=== PATIENT | female | born 1945 | race Caucasian/White ===

== ENCOUNTER 2017-01-28 02:53 | Emergency (ER) | payer MEDICARE, OTHER | END 2017-01-28 04:17 | disposition left against medical advice (07) | LOC: JP.ED 02:53 | DX: Z53.21 Procedure and treatment not carried out due to patient leaving prior to being seen by health care provider (principal) ==

== ENCOUNTER 2018-01-07 15:46 | Emergency (ER) | payer MEDICARE, OTHER ==
--- NOTE | 2018-01-07 16:40 | EDM.PDOC ---
ED HPI GENERAL MEDICAL PROBLEM - General Chief Complaint: Gastrointestinal Problem Stated Complaint: DIZZY Time Seen by Provider: 01/07/18 16:15 Source of Information: Reports: Patient History Limitations: Reports: No Limitations - History of Present Illness INITIAL COMMENTS - FREE TEXT/NARRATIVE: 72-year-old female who recently stopped several of her medications including 2 blood pressure medicines and her thyroid medicine presents today with lightheadedness, nausea, and mild headache. No fevers or chills, no trauma, no shortness of breath or chest pain. Onset: Unknown/Unsure Severity: Mild Associated Symptoms: Reports: Headaches, Malaise, Nausea/Vomiting, Other ( Lightheaded and dizzy). Denies: Confusion, Chest Pain, Cough, Fever/Chills, Shortness of Breath, Weakness - Related Data Allergies Allergy/AdvReac Type Severity Reaction Status Date / Time Penicillins Allergy Intermediate Mouth Sores Verified 01/07/18 16:06 Home Meds: Home Meds Lidocaine 5% [Lidoderm 5%] 1 patch TOP DAILY PRN 02/08/14 [History] NIFEdipine [Adalat cc] 30 mg PO BEDTIME 02/08/14 [History] buPROPion HCl [Wellbutrin Xl] 150 mg PO BEDTIME 03/21/14 [History] Levothyroxine [Synthroid] 88 mcg PO QAM 10/03/15 [History] ALPRAZolam [Xanax] 0.5 mg PO BEDTIME 10/08/15 [History] Albuterol Sulfate [Proair Respiclick] 2 puff INH Q4HR PRN 10/08/15 [History] Escitalopram [Lexapro] 20 mg PO QAM 10/08/15 [History] cloNIDine [Catapres] 0.1 mg PO BID PRN 10/08/15 [History] traZODone HCl [Trazodone HCl] 100 mg PO BEDTIME 10/08/15 [History] Nitroglycerin 1 tab PO ASDIRECTED PRN 10/24/15 [History] Linaclotide [Linzess] 290 mcg PO DAILY 12/15/16 [History] Past Medical History HEENT History: Reports: Cataract Cardiovascular History: Reports: Arrhythmia, Hypertension, [place], Other (See Below) Other Cardiovascular History: SVT Respiratory History: Reports: COPD, Other (See Below) Other Respiratory History: Usually only uses O2 at night 2LPM Gastrointestinal History: Reports: Cholelithiasis, Chronic Constipation, 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: Musculoskeletal History: Reports: Back Pain, Chronic, Fracture Other Musculoskeletal History: back pain Neurological History: Reports: Migraines Psychiatric History: Reports: Anxiety, Depression Endocrine/Metabolic History: Reports: Hypothyroidism Hematologic History: Reports: Anemia, B12 Deficiency, Blood Transfusion(s) - Infectious Disease History Infectious Disease History: Reports: Chicken Pox - Past Surgical History HEENT Surgical History: Reports: Cataract Surgery Cardiovascular Surgical History: Reports: Cardiac Ablation GI Surgical History: Reports: Cholecystectomy, Colonoscopy, EGD Female Surgical History: Reports: Breast Biopsy, Hysterectomy, Salpingo- Oophorectomy Endocrine Surgical History: Reports: Thyroidectomy Musculoskeletal Surgical History: Reports: Arthroscopic Knee, Shoulder Surgery Other Musculoskeletal Surgeries/Procedures:: neuroma removed Oncologic Surgical History: Reports: Biopsy of Breast Social & Family History - Tobacco Use Smoking Status *Q: Former Smoker Years of Tobacco use: 50 Packs/Tins Daily: 0.5 Used Tobacco, but Quit: Yes Month/Year Tobacco Last Used: 2 months Second Hand Smoke Exposure: No - Caffeine Use Caffeine Use: Reports: Soda Other Caffeine Use: Pepsi - Alcohol Use Days Per Week of Alcohol Use: 0 - Recreational Drug Use Recreational Drug Use: No Recreational Drug Type: Reports: Benzodiazepines ED ROS GENERAL - Review of Systems Review Of Systems: See Below Constitutional: Reports: Malaise, Weakness, Decreased Appetite. Denies: Fever, Chills HEENT: Reports: No Symptoms. Denies: Vision Change Respiratory: Denies: Shortness of Breath Cardiovascular: Denies: Chest Pain, Palpitations GI/Abdominal: Reports: Nausea. Denies: Abdominal Pain, Vomiting Musculoskeletal: Reports: Neck Pain Skin: Reports: No Symptoms Neurological: Reports: Dizziness, Headache. Denies: Confusion, Paresthesia Psychiatric: Reports: No Symptoms ED EXAM, GENERAL - Physical Exam Exam: See Below Exam Limited By: No Limitations General Appearance: Alert, No Apparent Distress Eye Exam: Bilateral Eye: Normal Inspection Head: Atraumatic Neck: Supple, Non-Tender Respiratory/Chest: No Respiratory Distress, Lungs Clear Cardiovascular: Regular Rate, Rhythm GI/Abdominal: Soft, Non-Tender Extremities: No: Pedal Edema Neurological: Alert, Oriented Psychiatric: Normal Affect, Normal Mood Skin Exam: Warm, Dry Course - Vital Signs Last Recorded V/S: Last Vital Signs Temp 97.6 F 01/07/18 16:13 Pulse 56 L 01/07/18 17:23 Resp 16 01/07/18 17:23 BP 179/79 H 01/07/18 17:23 Pulse Ox 94 L 01/07/18 17:23 - Orders/Labs/Meds Labs: Laboratory Tests 01/07/18 01/07/18 Range/Units 16:25 16:25 WBC 6.3 (4.5-11.0) K/uL RBC 3.72 (3.30-5.50) M/uL Hgb 10.3 L (12.0-15.0) g/dL Hct 32.1 L (36.0-48.0) % MCV 86 (80-98) fL MCH 28 (27-31) pg MCHC 32 (32-36) % Plt Count 161 (150-400) K/uL Neut % (Auto) 63 (36-66) % Lymph % (Auto) 29 (24-44) % [place] % (Auto) 7 H (2-6) % Eos % (Auto) 0 L (2-4) % Baso % (Auto) 1 (0-1) % Sodium 136 L (140-148) mmol/L Potassium 3.8 (3.6-5.2) mmol/L Chloride 99 L (100-108) mmol/L Carbon Dioxide 30 (21-32) mmol/L Anion Gap 10.8 (5.0-14.0) mmol/L BUN 9 (7-18) mg/dL Creatinine 1.1 H (0.6-1.0) mg/dL Est Cr Clr Drug Dosing 42.00 mL/min Estimated GFR (MDRD) 49 L (>60) Glucose 113 H (74-106) mg/dL Calcium 9.0 (8.5-10.1) mg/dL Total Bilirubin 0.4 (0.2-1.0) mg/dL AST 13 L (15-37) U/L ALT 15 (12-78) U/L Alkaline Phosphatase 92 (46-116) U/L Total Protein 6.9 (6.4-8.2) g/dL Albumin 3.9 (3.4-5.0) g/dL Globulin 3.0 (2.3-3.5) g/dL Albumin/Globulin Ratio 1.3 (1.2-2.2) TSH, Ultra Sensitive 0.329 L (0.358-3.740) uIU/mL - Re-Assessments/Exams Free Text/Narrative Re-Assessment/Exam: 01/07/18 16:40 CBC, CMP and TSH were obtained. 01/07/18 17:55 TSH was 0.032. CBC and CMP were reassuring. I had a discussion with her primary care provider, Dr. Rosa and he reviewed the recent medical visits and had no recommendations for medication changes other than starting BuSpar. I encouraged the patient to restart her Synthroid, nifedipine, and any other medications as directed and recheck with Dr. Rosa next week. Departure - Departure Time of Disposition: 18:26 Disposition: Home, Self-Care 01 Condition: Good Clinical Impression: Dizziness Hypertension Qualifiers: Hypertension type: essential hypertension Qualified Code(s): I10 - Essential ( primary) hypertension - Discharge Information Instructions: Dizziness, [id number] Referrals: Azam Rosa Sr, MD [Primary Care Provider] - Forms: ED Department Discharge Care Plan Goals: Restart your medications as prescribed, including your thyroid medicine and blood pressure medication. Recheck with Dr. Rosa next week, or return sooner if worsening such as vomiting, fever, shortness of breath or increased pain.
[2018-01-07 17:24] VITALS: BP 179/79
== END 2018-01-07 18:28 | disposition home or self-care (01) ==
LOC: JP.ED 15:46
DX: I10 Essential (primary) hypertension (principal); Z88.0 Allergy status to penicillin; Z79.899 Other long term (current) drug therapy; J44.9 Chronic obstructive pulmonary disease, unspecified; Z87.891 Personal history of nicotine dependence; F41.9 Anxiety disorder, unspecified; F32.9 Major depressive disorder, single episode, unspecified; E03.9 Hypothyroidism, unspecified; D64.9 Anemia, unspecified; I25.2 Old myocardial infarction
CPT/HCPCS: 36415; 80053; 84443; 85025; 99283; 99284

== ENCOUNTER 2018-01-14 19:25 | Emergency (ER) | payer MEDICARE, OTHER ==
[2018-01-14 19:42] VITALS: BP 155/70
--- NOTE | 2018-01-14 19:53 | EDM.PDOC ---
ED HPI GENERAL MEDICAL PROBLEM - General Chief Complaint: Bite:Animal, Insect Stated Complaint: CAT BITE LEFT FOREARM Time Seen by Provider: 01/14/18 19:40 Source of Information: Reports: Patient History Limitations: Reports: No Limitations - History of Present Illness INITIAL COMMENTS - FREE TEXT/NARRATIVE: 72-year-old female concerned about an injury to her left forearm. She was bitten by a cat yesterday that swollen, bruised and tender. She is already on Augmentin for a cat bite on her right arm. No fevers or chills Onset: Sudden (Yesterday) Location: Reports: Upper Extremity, Left Severity: Mild - Related Data Allergies Allergy/AdvReac Type Severity Reaction Status Date / Time Penicillins Allergy Intermediate Mouth Sores Verified 01/14/18 19:33 Home Meds: Home Meds Lidocaine 5% [Lidoderm 5%] 1 patch TOP DAILY PRN 02/08/14 [History] NIFEdipine [Adalat cc] 30 mg PO BEDTIME 02/08/14 [History] buPROPion HCl [Wellbutrin Xl] 150 mg PO BEDTIME 03/21/14 [History] Levothyroxine [Synthroid] 88 mcg PO QAM 10/03/15 [History] ALPRAZolam [Xanax] 0.5 mg PO BEDTIME 10/08/15 [History] Albuterol Sulfate [Proair Respiclick] 2 puff INH Q4HR PRN 10/08/15 [History] Escitalopram [Lexapro] 20 mg PO QAM 10/08/15 [History] cloNIDine [Catapres] 0.1 mg PO BID PRN 10/08/15 [History] traZODone HCl [Trazodone HCl] 100 mg PO BEDTIME 10/08/15 [History] Nitroglycerin 1 tab PO ASDIRECTED PRN 10/24/15 [History] Linaclotide [Linzess] 290 mcg PO DAILY 12/15/16 [History] Amoxicillin/Clavulanate K [Augmentin 875-125 MG] 1 tab PO BID 01/14/18 [History] Past Medical History HEENT History: Reports: Cataract Cardiovascular History: Reports: Arrhythmia, Hypertension, [place], Other (See Below) Other Cardiovascular History: SVT Respiratory History: Reports: COPD, Other (See Below) Other Respiratory History: Usually only uses O2 at night 2LPM Gastrointestinal History: Reports: Cholelithiasis, Chronic Constipation, 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: Musculoskeletal History: Reports: Back Pain, Chronic, Fracture Other Musculoskeletal History: back pain Neurological History: Reports: Migraines Psychiatric History: Reports: Anxiety, Depression Endocrine/Metabolic History: Reports: Hypothyroidism Hematologic History: Reports: Anemia, B12 Deficiency, Blood Transfusion(s) - Infectious Disease History Infectious Disease History: Reports: Chicken Pox - Past Surgical History HEENT Surgical History: Reports: Cataract Surgery Cardiovascular Surgical History: Reports: Cardiac Ablation GI Surgical History: Reports: Cholecystectomy, Colonoscopy, EGD Female Surgical History: Reports: Breast Biopsy, Hysterectomy, Salpingo- Oophorectomy Endocrine Surgical History: Reports: Thyroidectomy Musculoskeletal Surgical History: Reports: Arthroscopic Knee, Shoulder Surgery Other Musculoskeletal Surgeries/Procedures:: neuroma removed Oncologic Surgical History: Reports: Biopsy of Breast Social & Family History - Tobacco Use Smoking Status *Q: Current Some Day Smoker Years of Tobacco use: 40 Packs/Tins Daily: 0.1 Used Tobacco, but Quit: Yes Month/Year Tobacco Last Used: 2 months Second Hand Smoke Exposure: No - Caffeine Use Caffeine Use: Reports: Soda Other Caffeine Use: Pepsi - Alcohol Use Days Per Week of Alcohol Use: 0 - Recreational Drug Use Recreational Drug Use: No Recreational Drug Type: Reports: Benzodiazepines ED ROS GENERAL - Review of Systems Review Of Systems: See Below Constitutional: Denies: Fever Respiratory: Denies: Shortness of Breath GI/Abdominal: Denies: Nausea, Vomiting Skin: Reports: Bruising ED EXAM, ANIMAL BITE - Physical Exam Exam: See Below Exam Limited By: No Limitations General Appearance: Alert, No Apparent Distress Respiratory/Chest: No Respiratory Distress Extremities: Other (Exam is otherwise limited to the extremities. She has a few dry puncture wounds on the right forearm that are healing nicely, on the left forearm there is a slightly raised bruised area with 3 small puncture wounds from her recent bite. No warmth or erythema. She has full range of motion of the fingers and hand although there is some discomfort with extension of the fingers.) Course - Vital Signs Last Recorded V/S: Last Vital Signs Temp 97.9 F 01/14/18 19:40 Pulse 81 01/14/18 19:40 Resp 14 01/14/18 19:40 BP 155/70 H 01/14/18 19:40 Pulse Ox 97 01/14/18 19:40 - Re-Assessments/Exams Free Text/Narrative Re-Assessment/Exam: 01/14/18 19:51 Explained to the patient that she likely has a hematoma under the skin which is causing discomfort. She is already on Augmentin, and anti-inflammatory can be added along with some moist warmth with compresses but no further antibiotic or treatment is needed. She can return if worsening. Departure - Departure Time of Disposition: 20:16 Disposition: Home, Self-Care 01 Condition: Good Clinical Impression: Contusion of arm, left Qualifiers: Encounter type: initial encounter Qualified Code(s): S40.022A - Contusion of left upper arm, initial encounter Cat bite of forearm Qualifiers: Encounter type: initial encounter Laterality: left Qualified Code(s): S51.852A - Open bite of left forearm, initial encounter - Discharge Information Instructions: Animal Bite, [id number] Referrals: PCP,None [Primary Care Provider] - Forms: ED Department Discharge Care Plan Goals: Continue with antibiotics as prescribed. Anti-inflammatories and warm compresses to the bruised area may help. Recheck at any time if worsening such as fever or increased erythema or warmth.
== END 2018-01-14 20:16 | disposition home or self-care (01) ==
LOC: JP.ED 19:25
DX: S51.852A Open bite of left forearm, initial encounter (principal); W55.01XA Bitten by cat, initial encounter
CPT/HCPCS: 99283

== ENCOUNTER 2018-03-28 12:21 | Emergency (ER) | payer MEDICARE, OTHER ==
[2018-03-28 12:45] VITALS: BP 138/59
--- NOTE | 2018-03-28 13:15 | EDM.PDOC ---
ED HPI GENERAL MEDICAL PROBLEM - General Chief Complaint: Chest Pain Stated Complaint: TIGHTNESS IN CHEST Time Seen by Provider: 03/28/18 13:05 Source of Information: Reports: Patient, EMS, Old Records History Limitations: Reports: No Limitations - History of Present Illness INITIAL COMMENTS - FREE TEXT/NARRATIVE: 72 yo female with no known CAD presents with upper abdominal pain that developed abruptly about 11:45 am today while walking. EMS transported with a normal EKG and vitals. ASA was given per EMS. Patient is almost fully resolved of this pain on arrival. Had a cath a few yrs ago that was per her report normal. Had eaten some pound cake and Pepsi before sx's began. Says that with the pain she had nausea, SOB, and diaphoresis-all are gone now. Onset: Today Onset Date: 03/28/18 Onset Time: 11:45 Duration: Minutes:, Resolved Prior to Arrival Location: Reports: Abdomen (upper) Quality: Reports: Pressure Severity: Severe Improves with: Reports: Other (? time) Worsens with: Reports: Other (unknown) Context: Reports: Other (Still has her gallbladder, sx's after Pepsi and pound cake.) Associated Symptoms: Reports: Diaphoresis, Nausea/Vomiting (no vomiting), Shortness of Breath. 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) (ASA 324 mg po) Chest Pain Score (Numeric/FACES): 3 - Related Data Allergies Allergy/AdvReac Type Severity Reaction Status Date / Time Penicillins Allergy Intermediate Mouth Sores Verified 03/28/18 12:51 Home Meds: Home Meds Lidocaine 5% [Lidoderm 5%] 1 patch TOP DAILY PRN 02/08/14 [History] NIFEdipine [Adalat cc] 30 mg PO BEDTIME 02/08/14 [History] buPROPion HCl [Wellbutrin Xl] 150 mg PO BEDTIME 03/21/14 [History] Levothyroxine [Synthroid] 88 mcg PO QAM 10/03/15 [History] ALPRAZolam [Xanax] 0.5 mg PO BEDTIME 10/08/15 [History] Albuterol Sulfate [Proair Respiclick] 2 puff INH Q4HR PRN 10/08/15 [History] Escitalopram [Lexapro] 20 mg PO QAM 10/08/15 [History] cloNIDine [Catapres] 0.1 mg PO BID PRN 10/08/15 [History] traZODone HCl [Trazodone HCl] 100 mg PO BEDTIME 10/08/15 [History] Nitroglycerin 1 tab PO ASDIRECTED PRN 10/24/15 [History] Linaclotide [Linzess] 290 mcg PO DAILY 12/15/16 [History] Gabapentin [Neurontin] 600 mg PO BID 03/28/18 [History] Past Medical History HEENT History: Reports: Cataract Cardiovascular History: Reports: Arrhythmia, Hypertension, [place], Other (See Below) Other Cardiovascular History: SVT Respiratory History: Reports: COPD, Other (See Below) Other Respiratory History: Usually only uses O2 at night 2LPM Gastrointestinal History: Reports: Cholelithiasis, Chronic Constipation, 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: Musculoskeletal History: Reports: Back Pain, Chronic, Fracture Other Musculoskeletal History: back pain Neurological History: Reports: Migraines Psychiatric History: Reports: Anxiety, Depression Endocrine/Metabolic History: Reports: Hypothyroidism Hematologic History: Reports: Anemia, B12 Deficiency, Blood Transfusion(s) - Infectious Disease History Infectious Disease History: Reports: Chicken Pox - Past Surgical History HEENT Surgical History: Reports: Cataract Surgery Cardiovascular Surgical History: Reports: Cardiac Ablation GI Surgical History: Reports: Cholecystectomy, Colonoscopy, EGD Female Surgical History: Reports: Breast Biopsy, Hysterectomy, Salpingo- Oophorectomy Endocrine Surgical History: Reports: Thyroidectomy Musculoskeletal Surgical History: Reports: Arthroscopic Knee, Shoulder Surgery Other Musculoskeletal Surgeries/Procedures:: neuroma removed Oncologic Surgical History: Reports: Biopsy of Breast Social & Family History - Tobacco Use Smoking Status *Q: Current Every Day Smoker Years of Tobacco use: 50 Packs/Tins Daily: 0.5 - Caffeine Use Caffeine Use: Reports: Soda Other Caffeine Use: Pepsi - Recreational Drug Use Recreational Drug Use: No ED ROS GENERAL - Review of Systems Review Of Systems: See Below Constitutional: Reports: No Symptoms HEENT: Reports: No Symptoms Respiratory: Reports: Shortness of Breath (now gone) Cardiovascular: Reports: No Symptoms Endocrine: Reports: No Symptoms GI/Abdominal: Reports: Abdominal Pain (now gone), Nausea (now gone). Denies: Black Stool, Bloody Stool, Constipation, Diarrhea, Distension, Hematemesis, Hematochezia, Melena, Vomiting : Reports: No Symptoms Musculoskeletal: Reports: No Symptoms Skin: Reports: No Symptoms Neurological: Reports: No Symptoms ED EXAM, GENERAL - Physical Exam Exam: See Below Exam Limited By: No Limitations General Appearance: Alert, WD/WN, No Apparent Distress Eye Exam: Bilateral Eye: Normal Inspection Ears: Normal External Exam, Normal Canal, Hearing Grossly Normal, Normal TMs Ear Exam: Bilateral Ear: Auricle Normal, Canal Normal Nose: Normal Inspection, Normal Mucosa, No Blood Throat/Mouth: Normal Inspection, Normal Lips, Normal Oropharynx, Normal Voice, No Airway Compromise Head: Atraumatic, Normocephalic Neck: Normal Inspection, Supple, Non-Tender Respiratory/Chest: No Respiratory Distress, Lungs Clear, Normal Breath Sounds, No Accessory Muscle Use Cardiovascular: Regular Rate, Rhythm, No Edema GI/Abdominal: Normal Bowel Sounds, Soft, Non-Tender, No Distention Back Exam: Normal Inspection. No: CVA Tenderness (R), CVA Tenderness (L) Extremities: Normal Inspection, Normal Range of Motion, Non-Tender, No Pedal Edema Neurological: Alert, Oriented, CN II-XII Intact, Normal Cognition, No Motor/ Sensory Deficits Psychiatric: Normal Affect, Normal Mood Skin Exam: Warm, Dry, Intact, Normal Color, No Rash EKG INTERPRETATION EKG Date: 03/28/18 Time: 12:10 Rhythm: NSR Rate (Beats/Min): 63 [place]: Normal P-Wave: Present QRS: Normal ST-T: Normal QT: Normal Comparison: No Change Course - Vital Signs Last Recorded V/S: Last Vital Signs Temp 36.7 C 03/28/18 12:46 Pulse 56 L 03/28/18 12:46 Resp 18 03/28/18 12:46 BP 138/59 L 03/28/18 12:46 Pulse Ox 54 L 03/28/18 12:46 - Orders/Labs/Meds Labs: Laboratory Tests 03/28/18 03/28/18 Range/Units 13:23 13:23 WBC 5.3 (4.5-11.0) K/uL RBC 3.53 (3.30-5.50) M/uL Hgb 10.1 L (12.0-15.0) g/dL Hct 31.3 L (36.0-48.0) % MCV 89 (80-98) fL MCH 29 (27-31) pg MCHC 32 (32-36) % Plt Count 177 (150-400) K/uL Sodium 138 L (140-148) mmol/L Potassium 3.9 (3.6-5.2) mmol/L Chloride 103 (100-108) mmol/L Carbon Dioxide 28 (21-32) mmol/L Anion Gap 10.9 (5.0-14.0) mmol/L BUN 6 L (7-18) mg/dL Creatinine 1.2 H (0.6-1.0) mg/dL Est Cr Clr Drug Dosing 37.01 mL/min Estimated GFR (MDRD) 44 L (>60) Glucose 148 H (74-106) mg/dL Calcium 8.7 (8.5-10.1) mg/dL Total Bilirubin 0.3 (0.2-1.0) mg/dL AST 19 (15-37) U/L ALT 15 (12-78) U/L Alkaline Phosphatase 101 (46-116) U/L Troponin I < 0.017 (0.000-0.056) ng/mL Total Protein 6.4 (6.4-8.2) g/dL Albumin 3.2 L (3.4-5.0) g/dL Globulin 3.2 (2.3-3.5) g/dL Albumin/Globulin Ratio 1.0 L (1.2-2.2) Departure - Departure Time of Disposition: 13:54 Disposition: Home, Self-Care 01 Condition: Good Clinical Impression: Acute epigastric pain Referrals: PCP,None [Primary Care Provider] - Forms: ED Department Discharge Additional Instructions: If this happens again try Maalox Plus 30 ml. Please follow up with your doctor for recheck, call for an appt. Have a HAPPY BIRTHDAY tomorrow! Return as needed.
== END 2018-03-28 14:09 | disposition home or self-care (01) ==
LOC: JP.ED 12:21
DX: R10.13 Epigastric pain (principal); F17.210 Nicotine dependence, cigarettes, uncomplicated; I10 Essential (primary) hypertension; I25.2 Old myocardial infarction; J44.9 Chronic obstructive pulmonary disease, unspecified; F41.9 Anxiety disorder, unspecified; F32.9 Major depressive disorder, single episode, unspecified; E03.9 Hypothyroidism, unspecified; Z79.899 Other long term (current) drug therapy; Z88.0 Allergy status to penicillin
CPT/HCPCS: 36415; 80053; 84484; 85027; 99285

== ENCOUNTER 2018-09-17 18:25 | Emergency (ER) | payer MEDICARE, OTHER ==
[2018-09-17 18:54] VITALS: BP 146/72
[2018-09-17] MEDS ORDERED: Ketorolac 30 MG/ML SDV IM ONE (19:12)
--- NOTE | 2018-09-17 19:18 | EDM.PDOC ---
ED HPI GENERAL MEDICAL PROBLEM - General Chief Complaint: General Stated Complaint: HURT L SIDE PLAYING WITH GRANDSON Time Seen by Provider: 09/17/18 19:05 Source of Information: Reports: Patient, Old Records, RN History Limitations: Reports: No Limitations - History of Present Illness INITIAL COMMENTS - FREE TEXT/NARRATIVE: 73 yo female here with sharp L upper chest wall pain for about 10 days after her 3 yo grandchild stepped on this area. Has not been to the clinic. Her pain is getting worse. Her last pain med was acetaminophen this morning. Pain worse with deep breathing, coughing, or sneezing. Onset: Gradual Onset Date: 09/08/18 Duration: Week(s): (1.5), Getting Worse Location: Reports: Chest (L anterior/upper) Quality: Reports: Sharp, Stabbing Severity: Moderate Improves with: Reports: Rest Worsens with: Reports: Movement Context: Reports: Trauma Associated Symptoms: Reports: Chest Pain. 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: Other (see below) (none) Left Chest Pain Score (Numeric/FACES): 8 - Related Data Allergies Allergy/AdvReac Type Severity Reaction Status Date / Time Penicillins Allergy Intermediate Mouth Sores Verified 03/28/18 12:51 Home Meds: Home Meds Lidocaine 5% [Lidoderm 5%] 1 patch TOP DAILY PRN 02/08/14 [History] NIFEdipine [Adalat cc] 30 mg PO BEDTIME 02/08/14 [History] buPROPion HCl [Wellbutrin Xl] 150 mg PO BEDTIME 03/21/14 [History] Levothyroxine [Synthroid] 88 mcg PO QAM 10/03/15 [History] ALPRAZolam [Xanax] 0.5 mg PO BEDTIME 10/08/15 [History] Albuterol Sulfate [Proair Respiclick] 2 puff INH Q4HR PRN 10/08/15 [History] Escitalopram [Lexapro] 20 mg PO QAM 10/08/15 [History] cloNIDine [Catapres] 0.1 mg PO BID PRN 10/08/15 [History] traZODone HCl [Trazodone HCl] 100 mg PO BEDTIME 10/08/15 [History] Nitroglycerin 1 tab PO ASDIRECTED PRN 10/24/15 [History] Linaclotide [Linzess] 290 mcg PO DAILY 12/15/16 [History] Gabapentin [Neurontin] 600 mg PO BID 03/28/18 [History] Past Medical History HEENT History: Reports: Cataract Cardiovascular History: Reports: Arrhythmia, Hypertension, [place], Other (See Below) Other Cardiovascular History: SVT Respiratory History: Reports: COPD, Other (See Below) Other Respiratory History: Usually only uses O2 at night 2LPM Gastrointestinal History: Reports: Cholelithiasis, Chronic Constipation, GERD 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: Musculoskeletal History: Reports: Back Pain, Chronic, Fracture Other Musculoskeletal History: back pain Neurological History: Reports: Migraines Psychiatric History: Reports: Anxiety, Depression Endocrine/Metabolic History: Reports: Hypothyroidism Hematologic History: Reports: Anemia, B12 Deficiency, Blood Transfusion(s) - Infectious Disease History Infectious Disease History: Reports: Chicken Pox, Measles, Mumps - Past Surgical History HEENT Surgical History: Reports: Cataract Surgery Cardiovascular Surgical History: Reports: Cardiac Ablation GI Surgical History: Reports: Cholecystectomy, Colonoscopy, EGD Female Surgical History: Reports: Breast Biopsy, Hysterectomy, Salpingo- Oophorectomy Endocrine Surgical History: Reports: Thyroidectomy Musculoskeletal Surgical History: Reports: Arthroscopic Knee, Shoulder Surgery Other Musculoskeletal Surgeries/Procedures:: neuroma removed Oncologic Surgical History: Reports: Biopsy of Breast Social & Family History - Tobacco Use Smoking Status *Q: Current Every Day Smoker Years of Tobacco use: 50 Packs/Tins Daily: 0.5 - Caffeine Use Caffeine Use: Reports: Soda Other Caffeine Use: Pepsi - Recreational Drug Use Recreational Drug Use: No ED ROS GENERAL - Review of Systems Review Of Systems: See Below Constitutional: Reports: No Symptoms HEENT: Reports: No Symptoms Respiratory: Reports: Pleuritic Chest Pain. Denies: Shortness of Breath, Wheezing, Cough, Sputum, Hemoptysis Cardiovascular: Reports: Chest Pain (L upper chest anteriorly) GI/Abdominal: Reports: No Symptoms : Reports: No Symptoms Musculoskeletal: Reports: No Symptoms Skin: Reports: No Symptoms Neurological: Reports: No Symptoms Psychiatric: Reports: No Symptoms ED EXAM, GENERAL - Physical Exam Exam: See Below Exam Limited By: No Limitations General Appearance: Alert, WD/WN, No Apparent Distress Eye Exam: Bilateral Eye: Normal Inspection Ears: Normal External Exam, Normal Canal Ear Exam: Bilateral Ear: Auricle Normal, Canal Normal Nose: Normal Inspection, No Blood Throat/Mouth: Normal Inspection, Normal Lips, Normal Oropharynx, Normal Voice, No Airway Compromise Head: Atraumatic, Normocephalic Neck: Normal Inspection Respiratory/Chest: No Respiratory Distress, Lungs Clear, No Accessory Muscle Use , Other (? BS diminished on the left relative to the right.) Cardiovascular: Regular Rate, Rhythm, No Edema GI/Abdominal: Normal Bowel Sounds, Soft, Non-Tender, No Distention Back Exam: Normal Inspection. No: CVA Tenderness (R), CVA Tenderness (L) Extremities: Normal Inspection, Normal Range of Motion, Non-Tender, No Pedal Edema Neurological: Alert, Oriented, CN II-XII Intact, Normal Cognition, No Motor/ Sensory Deficits Psychiatric: Normal Affect, Normal Mood Skin Exam: Warm, Dry, Intact, Normal Color, No Rash Course - Vital Signs Last Recorded V/S: Last Vital Signs Temp 36.1 C 09/17/18 18:58 Pulse 107 H 09/17/18 18:58 Resp 20 09/17/18 18:58 BP 146/72 H 09/17/18 18:58 Pulse Ox 95 09/17/18 18:58 - Orders/Labs/Meds Orders: Active Orders 24 hr Category Date Time Status Chest 2V [CR] Stat Exams 09/17/18 19:13 Taken Meds: Medications Discontinued Medications Generic Name Dose Route Start Last Admin Trade Name Vitaly PRN Reason Stop Dose Admin Ketorolac Tromethamine 30 mg 09/17/18 19:12 09/17/18 19:18 Toradol IM 09/17/18 19:13 30 mg ONETIME ONE Administration - Radiology Interpretation Free Text/Narrative:: CXR-neg Departure - Departure Time of Disposition: 19:50 Disposition: Home, Self-Care 01 Condition: Good Clinical Impression: Rib pain on left side - Discharge Information *PRESCRIPTION DRUG MONITORING PROGRAM REVIEWED*: No *COPY OF PRESCRIPTION DRUG MONITORING REPORT IN PATIENT SOFIA: No Instructions: Chest Wall Pain, [id number] Referrals: Azam Rosa Sr, MD [Primary Care Provider] - Forms: ED Department Discharge Additional Instructions: Take acetaminophen 1000 mg every 6 hrs for pain relief. Add ibuprofen 400 mg every 6 hrs with food for added relief. Recheck with your doctor later this week. - My Orders Last 24 Hours: My Active Orders 09/17/18 19:13 Chest 2V [CR] Stat - Assessment/Plan Last 24 Hours: My Active Orders 09/17/18 19:13 Chest 2V [CR] Stat
--- NOTE | 2018-09-18 13:13 | CR ---
Two-view chest Comparison: 27 June 2018. There has been interval development of a poorly defined 2.7 cm nodular density in the central right lung. The remaining lung regalado are clear. The heart and vascular structures are stable. There are no posttraumatic findings. Impression: 1. Infiltrate versus nodule of the right lung. A follow-up chest x-ray is recommended in 10 days to assess for change or resolution.
== END 2018-09-17 19:57 | disposition home or self-care (01) ==
LOC: JP.ED 18:25
DX: R07.81 Pleurodynia (principal); I10 Essential (primary) hypertension; I25.2 Old myocardial infarction; E03.9 Hypothyroidism, unspecified; F17.210 Nicotine dependence, cigarettes, uncomplicated; Z88.0 Allergy status to penicillin; Z79.899 Other long term (current) drug therapy; Z90.710 Acquired absence of both cervix and uterus; Z90.49 Acquired absence of other specified parts of digestive tract; Z90.722 Acquired absence of ovaries, bilateral
CPT/HCPCS: 71046; 96372; 99285; J1885

== ENCOUNTER 2018-12-13 08:52 | Day surgery (SDC) | payer MEDICARE, OTHER ==
[~2018-12-13 08:52] MED LIST: Dexamethasone 4 MG/ML SDV ONE; Glycopyrrolate 0.2 MG/ML 5 ML MDV ONE; Neostigmine Methylsulfate 1 MG/ML 5 ML Syringe ONE; Ondansetron 4 MG/2 ML SDV ONE; Povidone-Iodine 10% Soln 118.25 ML Bottle ONE; Propofol 200 MG/20 ML SDV ONE; Rocuronium 50 MG/5 ML Vial ONE; Succinylcholine 200 MG/10 ML MDV ONE; fentaNYL 250 MCG/5 ML SDV ONE
[2018-12-13] MEDS: Nozin Nasal Sanitizer NASBOTH SCH ×2 (09:01→21:04)
[2018-12-13] MEDS ORDERED: Acetaminophen 500 MG Tab PO ONE (09:10)
[2018-12-13] MEDS ORDERED: Scopolamine 1.5 MG Transdermal Patch TOP SCH (09:10)
[2018-12-13] MEDS: Lactated Ringers 1,000 ML IV SCH ×2 (09:18→16:02)
[2018-12-13] MEDS ORDERED: Clindamycin Phosphate 900 MG/6 ML SDV IV ONE (10:00)
[2018-12-13] MEDS ORDERED: Bupivacaine 0.5% 30 ML SDV ONE (10:11)
[2018-12-13] MEDS ORDERED: Lidocaine 1% 2 ML ONE (10:15)
[2018-12-13] MEDS: Clindamycin Phosphate 900 MG in Sodium Chloride 0.9% 100 ML IV ONE ×2 (10:27→13:59)
[2018-12-13] MEDS ORDERED: Nitroglycerin 0.4 MG Tab.SL SL PRN (12:01)
[2018-12-13] MEDS ORDERED: cloNIDine 0.1 MG Tab PO PRN (12:01)
[2018-12-13] MEDS ORDERED: Morphine 2 MG/ML Syringe IVPUSH PRN (12:04)
[2018-12-13] MEDS ORDERED: Morphine 2 MG/ML Syringe IVPUSH ONE (12:05)
[2018-12-13] MEDS: Acetaminophen/oxyCODONE 325-5 MG Tab PO PRN ×3 (14:14→22:26)
[2018-12-13] MEDS: Clindamycin Phosphate 900 MG in Sodium Chloride 0.9% 100 ML IV SCH (18:20)
[2018-12-13] MEDS ORDERED: buPROPion 150 MG Tab.ER PO SCH (21:00)
[2018-12-13] MEDS ORDERED: ALPRAZolam 0.5 MG Tab PO SCH (21:00)
[2018-12-13] MEDS ORDERED: Nozin Nasal Sanitizer NASBOTH SCH (21:00)
[2018-12-13] MEDS ORDERED: NIFEdipine 30 MG Tab.ER PO SCH (21:00)
[2018-12-13] MEDS: Gabapentin 400 MG Cap PO SCH (21:03)
[2018-12-14] MEDS: Clindamycin Phosphate 900 MG in Sodium Chloride 0.9% 100 ML IV SCH ×2 (01:40→10:40)
[2018-12-14] MEDS ORDERED: Pantoprazole 40 MG Tab.CR PO SCH (07:30)
[2018-12-14] MEDS ORDERED: Levothyroxine 88 MCG Tab PO SCH (07:30)
[2018-12-14] MEDS: Acetaminophen/oxyCODONE 325-5 MG Tab PO PRN (08:44)
[2018-12-14] MEDS: Gabapentin 400 MG Cap PO SCH (08:46)
[2018-12-14] MEDS: Nozin Nasal Sanitizer NASBOTH SCH (08:49)
[2018-12-14] MEDS ORDERED: Escitalopram 20 MG Tab PO SCH (09:00)
[2018-12-14] MEDS ORDERED: SCOPOLAMINE PATCH CHECK TOP SCH (09:00)
[2018-12-14 10:36] VITALS: BP 98/45
--- NOTE | 2018-12-19 08:15 | PCM.OPNOTE ---
- General Post-Op/Procedure Note Date of Surgery/Procedure: 12/14/18 Operative Procedure(s): Hemiarthroplasty right shoulder Findings: Osteoarthritis GH joint right shoulder Pre Op Diagnosis: OA right shloulder Post-Op Diagnosis: OA right shoulder Anesthesia Technique: General ET Tube, Regional Block Primary Surgeon: Azam Mcbride Complications: None Condition: Good Free Text/Narrative:: indications: Heavenly is a 73-year-old female with a history of progressive pain in the right shoulder for the past year. She has failed conservative treatment. She is having increasing difficulties with activities of daily living. Now presents for right shoulder hemiarthroplasty possible total shoulder arthroplasty. procedure: After adequate general anesthesia is obtained patient is placed in a beachchair position and the right arm and hand are prepped and draped in a sterile fashion. Incision was made in the anterior aspect of the shoulder carried down through the subcutaneous tissue.Hemostasis is obtained with electrocautery. The cephalic vein is identified. This is dissected out and retracted laterally with the deltoid. The clavipectoral fascia is divided and a retractor is placed beneath the combine tendon and the deltoid. The biceps groove was identified and an incision is made approximately 1 cm from the attachment of the subscapularis. Subscapularis is elevated from the tuberosity. Sutures are placed and used for retraction. Capsule is released along the inferior neck of the humerus. The arm is then externally rotated and the head of the humerus is dislocated. A retractor is placed over the superior aspect of the head protecting the biceps tendon. Degenerative changes of the humeral head were identified, small osteophyte inferiorly and loss of articular cartilage. The starting awl was utilized to make a hole in the superior aspect of the humeral head. Reamers were then used sequentially down the humeral shaft.The last reamer was left in place and the cutting guide was secured. Humeral neck cut was made at approximately 20 of rotation. Cutting guide was removed. The glenoid was then inspected. This showed some mild wear with spotty loss of articular cartilage but no significant deformity. Decision was made not to proceed with a glenoid component.he larger metaphyseal reamer was then used. Trial stem was placed. This showed excellent position within the humerus.Trial was removed. The shoulder was then irrigated. A trabecular metal stem was then press-fit into position with excellent position and purchase. Trial humeral heads were then utilized.A 21 mm height provided good mandaeism of the humeral head and excellent stability within the glenoid.Trial was removed. The taper was cleaned and a final offset head was positioned and secured onto the taper. Shoulder was reduced once again.Showed excellent range of motion and excellent stability. Shoulder was irrigated once again. Subscapularis was repaired back to the tendon using#1 Ethibond in interrupted fashion and over sewn with a running suture. Skin was closed with 2-0 Vicryl and a running 3-0 Monocryl. Steri- Strips were applied. Sterile dressing was then placed. Patient was taken from the operating room in a stable condition. There were no complications..
== END 2018-12-14 15:03 | disposition home or self-care (01) ==
LOC: JP.SDS 08:52 → JP.MS 11:58 → JP.SDS 12-14 15:03
PROVIDERS: ATTEND Specialist
DX: M19.011 Primary osteoarthritis, right shoulder (principal); M25.711 Osteophyte, right shoulder; I10 Essential (primary) hypertension; J43.9 Emphysema, unspecified; F17.200 Nicotine dependence, unspecified, uncomplicated; Z79.899 Other long term (current) drug therapy
CPT/HCPCS: 23470; 36415; 80048; 85027; 86850; 86900; 86901; 97110; 97161; 97165; 97530; 97535; A9270; J1100; J2001; J2270; J2405; J2704; J2710; J3010; J3490; J7030; J7120; J0330

== ENCOUNTER 2019-01-24 12:50 | Emergency (ER) | payer MEDICARE, OTHER ==
[2019-01-24 13:09] VITALS: BP 140/69
[2019-01-24] MEDS ORDERED: Ketorolac 60 MG/2 ML SDV IM ONE (14:02)
--- NOTE | 2019-01-24 14:08 | EDM.PDOC ---
ED HPI GENERAL MEDICAL PROBLEM - General Chief Complaint: Neck Problem Stated Complaint: STIFF NECK Time Seen by Provider: 01/24/19 13:50 Source of Information: Reports: Patient History Limitations: Reports: No Limitations - History of Present Illness INITIAL COMMENTS - FREE TEXT/NARRATIVE: 73-year-old female woke up this morning with a kink or pain in her left neck that is limiting her range of motion and is very sharp. She did not fall or have any specific injury. No fevers or chills. The pain radiates from the upper left neck into the upper medial posterior shoulder. No shortness of breath or cough. Onset: Unknown/Unsure (woke up with pain) Location: Reports: Neck Associated Symptoms: Reports: No Other Symptoms Neck Pain Score (Numeric/FACES): 9 - Related Data Allergies Allergy/AdvReac Type Severity Reaction Status Date / Time Penicillins Allergy Intermediate Mouth Sores Verified 01/24/19 13:44 Home Meds: Home Meds Lidocaine 5% [Lidoderm 5%] 1 patch TOP DAILY PRN 02/08/14 [History] Levothyroxine [Synthroid] 88 mcg PO QAM 10/03/15 [History] ALPRAZolam [Xanax] 0.5 mg PO BEDTIME 10/08/15 [History] Escitalopram [Lexapro] 20 mg PO QAM 10/08/15 [History] cloNIDine [Catapres] 0.1 mg PO BID PRN 10/08/15 [History] traZODone HCl [Trazodone HCl] 100 mg PO BEDTIME 10/08/15 [History] Nitroglycerin 1 tab PO ASDIRECTED PRN 10/24/15 [History] Linaclotide [Linzess] 290 mcg PO DAILY 12/15/16 [History] Gabapentin [Neurontin] 800 mg PO BID 03/28/18 [History] Esomeprazole [NexIUM] 40 mg PO DAILY 12/13/18 [History] oxyCODONE ER [OxyCONTIN] 10 mg PO Q12H PRN #20 tab.er 01/18/19 [Rx] Past Medical History HEENT History: Reports: Cataract Cardiovascular History: Reports: Arrhythmia, Hypertension, [place], Other (See Below) Other Cardiovascular History: SVT Respiratory History: Reports: COPD, Other (See Below) Other Respiratory History: Usually uses O2 at night 2LPM. 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: Musculoskeletal History: Reports: Back Pain, Chronic, Fracture, Osteoarthritis Other Musculoskeletal History: back pain right shoulder pain Neurological History: Reports: Migraines Psychiatric History: Reports: Anxiety, Depression Endocrine/Metabolic History: Reports: Hypothyroidism, Other (See Below) Other Endocrine/Metabolic History: 12/13/2018: reports 20# weight loss over past 6 wks Hematologic History: Reports: Anemia, B12 Deficiency, Blood Transfusion(s) Immunologic History: Reports: None Oncologic (Cancer) History: Reports: None Dermatologic History: Reports: None - Infectious Disease History Infectious Disease History: Reports: Chicken Pox - Past Surgical History Head Surgeries/Procedures: Reports: None HEENT Surgical History: Reports: Cataract Surgery Cardiovascular Surgical History: Reports: Cardiac Ablation GI Surgical History: Reports: Cholecystectomy, Colonoscopy, EGD Female Surgical History: Reports: Breast Biopsy, Hysterectomy, Salpingo- Oophorectomy Endocrine Surgical History: Reports: Thyroidectomy Musculoskeletal Surgical History: Reports: Arthroscopic Knee, Shoulder Surgery Other Musculoskeletal Surgeries/Procedures:: neuroma removed. R TSA 12/13/2018 due to R shoulder pain/OA Oncologic Surgical History: Reports: Biopsy of Breast Social & Family History - Family History Family Medical History: Noncontributory - Tobacco Use Smoking Status *Q: Current Some Day Smoker Years of Tobacco use: 50 Packs/Tins Daily: 0 Used Tobacco, but Quit: No Second Hand Smoke Exposure: No - Caffeine Use Caffeine Use: Reports: Soda Other Caffeine Use: Pepsi - Recreational Drug Use Recreational Drug Use: No ED ROS GENERAL - Review of Systems Review Of Systems: See Below Constitutional: Denies: Fever, Chills Respiratory: Denies: Shortness of Breath Cardiovascular: Denies: Chest Pain GI/Abdominal: Denies: Abdominal Pain, Nausea, Vomiting Neurological: Denies: Headache Psychiatric: Reports: No Symptoms ED EXAM, UPPER BACK/NECK PAIN - Physical Exam Exam: See Below Exam Limited By: No Limitations General Appearance: Alert, No Apparent Distress, Other (Appears fairly comfortable if she holds her neck still, pain with rotation of the neck) Head Exam: Atraumatic Neck Exam: Limited Range of Motion (Very sore with any rotation of the neck), Paraspinous Muscle Tender (Tender to palpation along the left paraspinous muscles of the neck and upper thoracic spine) Nexus Criteria: No: Posterior, Midline Cervical Tenderness, Evidence of Intoxication Neurologic: No Motor/Sensory Deficits, Normal Mood/Affect, Oriented x 3 Course - Vital Signs Last Recorded V/S: Last Vital Signs Temp 95.9 F 01/24/19 13:53 Pulse 81 01/24/19 13:53 Resp 16 01/24/19 13:53 BP 140/69 01/24/19 13:53 Pulse Ox 92 L 01/24/19 13:53 - Orders/Labs/Meds Meds: Medications Discontinued Medications Generic Name Dose Route Start Last Admin Trade Name Vitaly PRN Reason Stop Dose Admin Ketorolac Tromethamine 60 mg 01/24/19 14:02 01/24/19 14:07 Toradol IM 01/24/19 14:03 60 mg ONETIME ONE Administration - Re-Assessments/Exams Free Text/Narrative Re-Assessment/Exam: 01/24/19 14:05 Patient has OxyContin and Aleve at home, has not taken either. She was given 60 mg of IM Toradol, 15 Flexeril for muscle relaxation and encouraged to take a regular dose of Aleve for the next several days along with continuing to increase range of motion of the neck and moist heat if helpful. She can recheck in 2-3 days for a physical therapy consultation not improving. Departure - Departure Time of Disposition: 14:19 Disposition: Home, Self-Care 01 Condition: Good Clinical Impression: Neck pain, acute - Discharge Information Instructions: Cervical Sprain, [id number] Referrals: Azam Rosa Sr, MD [Primary Care Provider] - Forms: ED Department Discharge Care Plan Goals: Warmth to the sore area may be helpful, gentle increase in range of motion is important. 2 Aleve twice a day along with your OxyContin will be beneficial. Use Flexeril as prescribed when trying to rest. Recheck in 2-3 days if not improving satisfactorily, physical therapy consult may be necessary.
== END 2019-01-24 14:19 | disposition home or self-care (01) ==
LOC: JP.ED 12:50
DX: M54.2 Cervicalgia (principal); I10 Essential (primary) hypertension; I25.2 Old myocardial infarction; J44.9 Chronic obstructive pulmonary disease, unspecified; F41.9 Anxiety disorder, unspecified; F17.210 Nicotine dependence, cigarettes, uncomplicated; F32.9 Major depressive disorder, single episode, unspecified; Z88.0 Allergy status to penicillin; Z79.899 Other long term (current) drug therapy
CPT/HCPCS: 96372; 99283; J1885

== ENCOUNTER 2019-03-13 00:58 | Emergency (ER) | payer MEDICARE, OTHER ==
--- NOTE | 2019-03-13 01:20 | EDM.PDOC ---
ED HPI GENERAL MEDICAL PROBLEM - General Chief Complaint: General Stated Complaint: NOT FEELING WELL Time Seen by Provider: 03/13/19 01:20 Source of Information: Reports: Patient History Limitations: Reports: No Limitations - History of Present Illness INITIAL COMMENTS - FREE TEXT/NARRATIVE: pt arrived with a complaint of feeling like she had a fever. She took her temp and it was not elevated and it is not elevated by the thermometer here. Onset: Today, Gradual Duration: Other (pt was not feeling well tonight. She did have some pain around her shoulder blades. ) Location: Reports: Back, Other ( between her shoulder blades she has a history of some vertebrae collapsing. ) Associated Symptoms: Reports: Other ( fatique. She has lost 20 lbs over the last 3 monthes. She was quite depressed and was not eating right. She is doing better now. r) - Related Data Allergies Allergy/AdvReac Type Severity Reaction Status Date / Time Penicillins Allergy Intermediate Mouth Sores Verified 03/13/19 01:20 Home Meds: Home Meds Lidocaine 5% [Lidoderm 5%] 1 patch TOP DAILY PRN 02/08/14 [History] Levothyroxine [Synthroid] 88 mcg PO QAM 10/03/15 [History] ALPRAZolam [Xanax] 0.5 mg PO BEDTIME 10/08/15 [History] Escitalopram [Lexapro] 20 mg PO QAM 10/08/15 [History] cloNIDine [Catapres] 0.1 mg PO BID PRN 10/08/15 [History] traZODone HCl [Trazodone HCl] 100 mg PO BEDTIME 10/08/15 [History] Nitroglycerin 1 tab PO ASDIRECTED PRN 10/24/15 [History] Linaclotide [Linzess] 290 mcg PO DAILY 12/15/16 [History] Gabapentin [Neurontin] 800 mg PO BID 03/28/18 [History] Esomeprazole [NexIUM] 40 mg PO DAILY 12/13/18 [History] oxyCODONE ER [OxyCONTIN] 10 mg PO Q12H PRN #20 tab.er 01/18/19 [Rx] Past Medical History HEENT History: Reports: Cataract Cardiovascular History: Reports: Arrhythmia, Hypertension, [place], Other (See Below) Other Cardiovascular History: SVT Respiratory History: Reports: COPD, Other (See Below) Other Respiratory History: Usually uses O2 at night 2LPM. 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: Musculoskeletal History: Reports: Back Pain, Chronic, Fracture, Osteoarthritis Other Musculoskeletal History: back pain right shoulder pain Neurological History: Reports: Migraines Psychiatric History: Reports: Anxiety, Depression Endocrine/Metabolic History: Reports: Hypothyroidism, Other (See Below) Other Endocrine/Metabolic History: 12/13/2018: reports 20# weight loss over past 6 wks Hematologic History: Reports: Anemia, B12 Deficiency, Blood Transfusion(s) Immunologic History: Reports: None Oncologic (Cancer) History: Reports: None Dermatologic History: Reports: None - Infectious Disease History Infectious Disease History: Reports: Chicken Pox - Past Surgical History Head Surgeries/Procedures: Reports: None HEENT Surgical History: Reports: Cataract Surgery Cardiovascular Surgical History: Reports: Cardiac Ablation GI Surgical History: Reports: Cholecystectomy, Colonoscopy, EGD Female Surgical History: Reports: Breast Biopsy, Hysterectomy, Salpingo- Oophorectomy Endocrine Surgical History: Reports: Thyroidectomy Musculoskeletal Surgical History: Reports: Arthroscopic Knee, Shoulder Surgery Other Musculoskeletal Surgeries/Procedures:: neuroma removed. R TSA 12/13/2018 due to R shoulder pain/OA Oncologic Surgical History: Reports: Biopsy of Breast Social & Family History - Family History Family Medical History: Noncontributory - Caffeine Use Caffeine Use: Reports: Soda Other Caffeine Use: Pepsi ED ROS GENERAL - Review of Systems Review Of Systems: See Below Constitutional: Reports: Fatigue, Weight Loss HEENT: Reports: No Symptoms Respiratory: Reports: No Symptoms Cardiovascular: Reports: No Symptoms Endocrine: Reports: No Symptoms, Fatigue GI/Abdominal: Reports: No Symptoms, Other (pt is having regular bms. ) : Reports: No Symptoms Musculoskeletal: Reports: No Symptoms Skin: Reports: No Symptoms ED EXAM, GENERAL - Physical Exam Exam: See Below Free Text/Narrative:: pt arrived with a possible fever and she was feeling fatiqued. Exam Limited By: No Limitations General Appearance: Alert, No Apparent Distress, Anxious, Other (pupils are equal and reactive. ) Ears: Normal TMs Nose: Normal Inspection Throat/Mouth: Normal Inspection Head: Atraumatic Neck: Normal Inspection Respiratory/Chest: No Respiratory Distress Cardiovascular: Regular Rate, Rhythm GI/Abdominal: Soft, Non-Tender (Female) Exam: Deferred Rectal (Female) Exam: Deferred Back Exam: Normal Inspection Extremities: Normal Inspection Neurological: Alert, Oriented, Normal Cognition Psychiatric: Other (pt feels like her depression is better and she is eating better. ) Skin Exam: Warm Course - Vital Signs Last Recorded V/S: Last Vital Signs Temp 35.8 C 03/13/19 01:30 Pulse 82 03/13/19 01:30 Resp 14 03/13/19 01:30 BP 116/77 03/13/19 01:30 Pulse Ox 97 03/13/19 01:30 - Orders/Labs/Meds Labs: Laboratory Tests 03/13/19 03/13/19 03/13/19 Range/Units 01:20 01:32 01:32 WBC 7.1 (4.5-11.0) K/uL RBC 3.89 (3.30-5.50) M/uL Hgb 11.0 L (12.0-15.0) g/dL Hct 34.9 L (36.0-48.0) % MCV 90 (80-98) fL MCH 28 (27-31) pg MCHC 32 (32-36) % Plt Count 200 (150-400) K/uL Neut % (Auto) 53 (36-66) % Lymph % (Auto) 39 (24-44) % [place] % (Auto) 7 H (2-6) % Eos % (Auto) 0 L (2-4) % Baso % (Auto) 1 (0-1) % Sodium 139 L (140-148) mmol/L Potassium 3.6 (3.6-5.2) mmol/L Chloride 101 (100-108) mmol/L Carbon Dioxide 31 (21-32) mmol/L Anion Gap 10.6 (5.0-14.0) mmol/L BUN 12 (7-18) mg/dL Creatinine 1.2 H (0.6-1.0) mg/dL Est Cr Clr Drug Dosing 36.45 mL/min Estimated GFR (MDRD) 44 L (>60) Glucose 127 H (74-106) mg/dL Calcium 9.4 (8.5-10.1) mg/dL Total Bilirubin 0.2 (0.2-1.0) mg/dL AST 16 (15-37) U/L ALT 17 (12-78) U/L Alkaline Phosphatase 90 (46-116) U/L C-Reactive Protein (0.0-0.3) mg/dL Total Protein 7.3 (6.4-8.2) g/dL Albumin 3.6 (3.4-5.0) g/dL Globulin 3.7 H (2.3-3.5) g/dL Albumin/Globulin Ratio 1.0 L (1.2-2.2) TSH, Ultra Sensitive (0.358-3.740) uIU/mL Urine Color Yellow Urine Appearance Clear Urine pH 5.0 (4.5-8.0) Ur Specific [place] 1.025 (1.008-1.030) Urine Protein Negative (NEGATIVE) mg/dL Urine Glucose (UA) Normal (NEGATIVE) mg/dL Urine Ketones Negative (NEGATIVE) mg/dL Urine Occult Blood Negative (NEGATIVE) Urine Nitrite Negative (NEGATIVE) Urine Bilirubin Negative (NEGATIVE) Urine Urobilinogen Normal (NORMAL) mg/dL Ur Leukocyte Esterase Negative (NEGATIVE) Urine RBC 0-5 (0-5) Urine WBC 0-5 (0-5) Ur Epithelial Cells Moderate Amorphous Sediment Not seen Urine Bacteria Few Urine Mucus Not seen 03/13/19 03/13/19 Range/Units 01:32 01:39 WBC (4.5-11.0) K/uL RBC (3.30-5.50) M/uL Hgb (12.0-15.0) g/dL Hct (36.0-48.0) % MCV (80-98) fL MCH (27-31) pg MCHC (32-36) % Plt Count (150-400) K/uL Neut % (Auto) (36-66) % Lymph % (Auto) (24-44) % [place] % (Auto) (2-6) % Eos % (Auto) (2-4) % Baso % (Auto) (0-1) % Sodium (140-148) mmol/L Potassium (3.6-5.2) mmol/L Chloride (100-108) mmol/L Carbon Dioxide (21-32) mmol/L Anion Gap (5.0-14.0) mmol/L BUN (7-18) mg/dL Creatinine (0.6-1.0) mg/dL Est Cr Clr Drug Dosing mL/min Estimated GFR (MDRD) (>60) Glucose (74-106) mg/dL Calcium (8.5-10.1) mg/dL Total Bilirubin (0.2-1.0) mg/dL AST (15-37) U/L ALT (12-78) U/L Alkaline Phosphatase (46-116) U/L C-Reactive Protein 0.06 (0.0-0.3) mg/dL Total Protein (6.4-8.2) g/dL Albumin (3.4-5.0) g/dL Globulin (2.3-3.5) g/dL Albumin/Globulin Ratio (1.2-2.2) TSH, Ultra Sensitive 3.248 (0.358-3.740) uIU/mL Urine Color Urine Appearance Urine pH (4.5-8.0) Ur Specific [place] (1.008-1.030) Urine Protein (NEGATIVE) mg/dL Urine Glucose (UA) (NEGATIVE) mg/dL Urine Ketones (NEGATIVE) mg/dL Urine Occult Blood (NEGATIVE) Urine Nitrite (NEGATIVE) Urine Bilirubin (NEGATIVE) Urine Urobilinogen (NORMAL) mg/dL Ur Leukocyte Esterase (NEGATIVE) Urine RBC (0-5) Urine WBC (0-5) Ur Epithelial Cells Amorphous Sediment Urine Bacteria Urine Mucus - Re-Assessments/Exams Free Text/Narrative Re-Assessment/Exam: 03/13/19 02:14 pt has a borderline creatnine. Her tsh is normal. Her hb is 11. Departure - Departure Time of Disposition: 02:17 Disposition: Home, Self-Care 01 Condition: Fair Clinical Impression: Anemia, mild, Fatigue, B12 deficiency - Discharge Information Referrals: Azam Rosa Sr, MD [Primary Care Provider] - Forms: ED Department Discharge Care Plan Goals: push fluids,encourage high iron foods,
[2019-03-13 01:31] VITALS: BP 116/77; PULSE 82
== END 2019-03-13 02:55 | disposition home or self-care (01) ==
LOC: JP.ED 00:58
DX: D64.9 Anemia, unspecified (principal); E53.8 Deficiency of other specified B group vitamins; I10 Essential (primary) hypertension; F41.9 Anxiety disorder, unspecified; F32.9 Major depressive disorder, single episode, unspecified; I25.2 Old myocardial infarction; M19.90 Unspecified osteoarthritis, unspecified site; Z88.0 Allergy status to penicillin; Z79.899 Other long term (current) drug therapy; Z90.49 Acquired absence of other specified parts of digestive tract; Z98.49 Cataract extraction status, unspecified eye; Z90.710 Acquired absence of both cervix and uterus
CPT/HCPCS: 36415; 80053; 81001; 84443; 85025; 86140; 99283

== ENCOUNTER 2019-04-17 15:28 | Inpatient (IN) | payer MEDICARE, OTHER ==
--- NOTE | 2019-04-17 16:29 | EDM.PDOC ---
ED HPI GENERAL MEDICAL PROBLEM - General Chief Complaint: Syncope Stated Complaint: MEDICAL VIA [facility] Time Seen by Provider: 04/17/19 16:19 Source of Information: Reports: Patient, Family History Limitations: Reports: No Limitations - History of Present Illness INITIAL COMMENTS - FREE TEXT/NARRATIVE: pt arrived with a history of having an episode where she felt very dizzy and like she was going to pass out. She had some shaking of both arms. She felt very weak. Shortly after that she had a sudden urge to have a BM. She did go to the br and had a bm and she felt very weak while on the stool. Onset: Sudden Duration: Hour(s): Location: Reports: Generalized Associated Symptoms: Reports: Diaphoresis, Syncope - Related Data Allergies Allergy/AdvReac Type Severity Reaction Status Date / Time Penicillins Allergy Intermediate Mouth Sores Verified 03/13/19 01:20 Home Meds: Home Meds Lidocaine 5% [Lidoderm 5%] 1 patch TOP DAILY PRN 02/08/14 [History] Levothyroxine [Synthroid] 88 mcg PO QAM 10/03/15 [History] ALPRAZolam [Xanax] 0.5 mg PO BEDTIME 10/08/15 [History] Escitalopram [Lexapro] 20 mg PO QAM 10/08/15 [History] cloNIDine [Catapres] 0.1 mg PO BID PRN 10/08/15 [History] traZODone HCl [Trazodone HCl] 100 mg PO BEDTIME 10/08/15 [History] Nitroglycerin 1 tab PO ASDIRECTED PRN 10/24/15 [History] Linaclotide [Linzess] 290 mcg PO DAILY 12/15/16 [History] Gabapentin [Neurontin] 800 mg PO BID 03/28/18 [History] Esomeprazole [NexIUM] 40 mg PO DAILY 12/13/18 [History] oxyCODONE ER [OxyCONTIN] 10 mg PO Q12H PRN #20 tab.er 01/18/19 [Rx] Past Medical History HEENT History: Reports: Cataract Cardiovascular History: Reports: Arrhythmia, Hypertension, [place], Other (See Below) Other Cardiovascular History: SVT Respiratory History: Reports: COPD, Other (See Below) Other Respiratory History: Usually uses O2 at night 2LPM. 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: Musculoskeletal History: Reports: Back Pain, Chronic, Fracture, Osteoarthritis Other Musculoskeletal History: back pain right shoulder pain Neurological History: Reports: Migraines Psychiatric History: Reports: Anxiety, Depression Endocrine/Metabolic History: Reports: Hypothyroidism, Other (See Below) Other Endocrine/Metabolic History: 12/13/2018: reports 20# weight loss over past 6 wks Hematologic History: Reports: Anemia, B12 Deficiency, Blood Transfusion(s) Immunologic History: Reports: None Oncologic (Cancer) History: Reports: None Dermatologic History: Reports: None - Infectious Disease History Infectious Disease History: Reports: Chicken Pox - Past Surgical History Head Surgeries/Procedures: Reports: None HEENT Surgical History: Reports: Cataract Surgery GI Surgical History: Reports: Cholecystectomy, Colonoscopy, EGD Female Surgical History: Reports: Breast Biopsy, Hysterectomy, Salpingo- Oophorectomy Endocrine Surgical History: Reports: Thyroidectomy Musculoskeletal Surgical History: Reports: Arthroscopic Knee, Shoulder Surgery Other Musculoskeletal Surgeries/Procedures:: neuroma removed. R TSA 12/13/2018 due to R shoulder pain/OA Oncologic Surgical History: Reports: Biopsy of Breast Social & Family History - Family History Family Medical History: Noncontributory - Tobacco Use Smoking Status *Q: Current Every Day Smoker Years of Tobacco use: 51 Packs/Tins Daily: 0.5 - Caffeine Use Caffeine Use: Reports: Soda Other Caffeine Use: Pepsi ED ROS GENERAL - Review of Systems Review Of Systems: See Below Constitutional: Reports: Diaphoresis HEENT: Reports: No Symptoms Respiratory: Reports: No Symptoms Cardiovascular: Reports: No Symptoms Endocrine: Reports: No Symptoms GI/Abdominal: Reports: No Symptoms, Other (pt had a large bm which was not black and tarry. ) : Reports: No Symptoms Musculoskeletal: Reports: No Symptoms Skin: Reports: No Symptoms Neurological: Reports: Headache, Other (pt has a low grade headache. She is feeling back to normal at this time. ) Psychiatric: Reports: Anxiety Hematologic/Lymphatic: Reports: Anemia - Physical Exam Exam: See Below Text/Narrative:: pt arrived with a history of having a dizzy spell. At that point she had a momentary loss of consciousness. she then had a urge to hve a bm and when she got to the [place] she once again felt quite weak. Exam Limited By: No Limitations General Appearance: Alert, No Apparent Distress, Other (pupils are equal and reactive. ) Ears: Normal TMs Nose: Normal Inspection Throat/Mouth: Normal Inspection Head Exam: Atraumatic Neck: Normal Inspection Respiratory/Chest: No Respiratory Distress Cardiovascular: Regular Rate, Rhythm, Other ( rate is in the 50s. ) GI/Abdominal: Soft, Non-Tender (Female) Exam: Deferred Rectal (Female) Exam: Deferred Neuro Exam (Abbreviated): Alert, Oriented, Normal Cognition Back Exam: Normal Inspection Extremities: Other (pt has good pulses. She states she has numbness in both legs to just below the knees. ) Psychiatric: Normal Affect Course - Vital Signs Last Recorded V/S: Last Vital Signs Temp 36.1 C 04/17/19 15:42 Pulse 47 L 04/17/19 17:11 Resp 12 04/17/19 17:11 BP 113/68 04/17/19 17:11 Pulse Ox 97 04/17/19 17:11 Orthostatic Blood Pressure [ 145/66 Standing] Orthostatic Blood Pressure [ 149/63 Sitting] Orthostatic Blood Pressure [ 159/66 Supine] - Orders/Labs/Meds Orders: Active Orders 24 hr Category Date Time Status EKG Documentation Completion [RC] ASDIRECTED Care 04/17/19 16:19 Active Orthostatic Vital Signs [RC] ASDIRECTED Care 04/17/19 17:14 Active EKG 12 Lead [EK] Routine Ther 04/17/19 16:19 Ordered Labs: Laboratory Tests 04/17/19 04/17/19 04/17/19 Range/Units 16:28 16:28 16:28 WBC 5.0 (4.5-11.0) K/uL RBC 3.28 L (3.30-5.50) M/uL Hgb 9.3 L (12.0-15.0) g/dL Hct 29.7 L (36.0-48.0) % MCV 91 (80-98) fL MCH 28 (27-31) pg MCHC 31 L (32-36) % Plt Count 152 (150-400) K/uL Neut % (Auto) 60 (36-66) % Lymph % (Auto) 32 (24-44) % [place] % (Auto) 8 H (2-6) % Eos % (Auto) 0 L (2-4) % Baso % (Auto) 0 (0-1) % Sodium 141 (140-148) mmol/L Potassium 3.2 L (3.6-5.2) mmol/L Chloride 102 (100-108) mmol/L Carbon Dioxide 33 H (21-32) mmol/L Anion Gap 9.2 (5.0-14.0) mmol/L BUN 7 (7-18) mg/dL Creatinine 1.0 (0.6-1.0) mg/dL Est Cr Clr Drug Dosing 44.80 mL/min Estimated GFR (MDRD) 54 L (>60) Glucose 106 (74-106) mg/dL Calcium 8.9 (8.5-10.1) mg/dL Iron (50-170) ug/dL TIBC (250-450) ug/dl % Saturation (20-55) % Total Bilirubin 0.3 (0.2-1.0) mg/dL AST 11 L (15-37) U/L ALT 11 L (12-78) U/L Alkaline Phosphatase 75 (46-116) U/L Troponin I < 0.017 (0.000-0.056) ng/mL Total Protein 6.4 (6.4-8.2) g/dL Albumin 3.3 L (3.4-5.0) g/dL Globulin 3.1 (2.3-3.5) g/dL Albumin/Globulin Ratio 1.1 L (1.2-2.2) Vitamin B12 (193-986) pg/ml Urine Color (YELLOW) Urine Appearance (CLEAR) Urine pH (5.0-8.0) Ur Specific [place] (1.008-1.030) Urine Protein (NEGATIVE) mg/dL Urine Glucose (UA) (NEGATIVE) mg/dL Urine Ketones (NEGATIVE) mg/dL Urine Occult Blood (NEGATIVE) Urine Nitrite (NEGATIVE) Urine Bilirubin (NEGATIVE) Urine Urobilinogen (0.2-1.0) EU/dL Ur Leukocyte Esterase (NEGATIVE) Urine RBC (0-5) Urine WBC (0-5) Ur Epithelial Cells Amorphous Sediment Urine Bacteria Urine Mucus 04/17/19 04/17/19 04/17/19 Range/Units 16:56 17:15 17:37 WBC (4.5-11.0) K/uL RBC (3.30-5.50) M/uL Hgb (12.0-15.0) g/dL Hct (36.0-48.0) % MCV (80-98) fL MCH (27-31) pg MCHC (32-36) % Plt Count (150-400) K/uL Neut % (Auto) (36-66) % Lymph % (Auto) (24-44) % [place] % (Auto) (2-6) % Eos % (Auto) (2-4) % Baso % (Auto) (0-1) % Sodium (140-148) mmol/L Potassium (3.6-5.2) mmol/L Chloride (100-108) mmol/L Carbon Dioxide (21-32) mmol/L Anion Gap (5.0-14.0) mmol/L BUN (7-18) mg/dL Creatinine (0.6-1.0) mg/dL Est Cr Clr Drug Dosing mL/min Estimated GFR (MDRD) (>60) Glucose (74-106) mg/dL Calcium (8.5-10.1) mg/dL Iron 31 L (50-170) ug/dL TIBC 272 (250-450) ug/dl % Saturation 11 L (20-55) % Total Bilirubin (0.2-1.0) mg/dL AST (15-37) U/L ALT (12-78) U/L Alkaline Phosphatase (46-116) U/L Troponin I (0.000-0.056) ng/mL Total Protein (6.4-8.2) g/dL Albumin (3.4-5.0) g/dL Globulin (2.3-3.5) g/dL Albumin/Globulin Ratio (1.2-2.2) Vitamin B12 252 (193-986) pg/ml Urine Color Yellow (YELLOW) Urine Appearance Clear (CLEAR) Urine pH 6.5 (5.0-8.0) Ur Specific [place] 1.010 (1.008-1.030) Urine Protein Negative (NEGATIVE) mg/dL Urine Glucose (UA) Negative (NEGATIVE) mg/dL Urine Ketones Negative (NEGATIVE) mg/dL Urine Occult Blood Negative (NEGATIVE) Urine Nitrite Negative (NEGATIVE) Urine Bilirubin Negative (NEGATIVE) Urine Urobilinogen 0.2 (0.2-1.0) EU/dL Ur Leukocyte Esterase Negative (NEGATIVE) Urine RBC 0-5 (0-5) Urine WBC 0-5 (0-5) Ur Epithelial Cells Few Amorphous Sediment Not seen Urine Bacteria Not seen Urine Mucus Not seen - Re-Assessments/Exams Free Text/Narrative Re-Assessment/Exam: 04/17/19 17:27 pt was found to have a hg of 9. k was 3.2. Her last hg was 11. rectal exam revealed no masses but there was alot of mucous mixed with blood. Pt had a low bp when she first arrived. Her bp has now come up. Her stool is positive for blood. 04/17/19 17:28 04/17/19 17:49 04/17/19 18:02 Departure - Departure Time of Disposition: 18:03 Disposition: Admitted As Inpatient 64 Condition: Fair Clinical Impression: Syncope, Anemia - Discharge Information Referrals: PCP,None [Primary Care Provider] - Forms: ED Department Discharge Care Plan Goals: admit to Dr Rosa. - My Orders Last 24 Hours: My Active Orders 04/17/19 16:19 EKG Documentation Completion [RC] ASDIRECTED EKG 12 Lead [EK] Routine 04/17/19 17:14 Orthostatic Vital Signs [RC] ASDIRECTED - Assessment/Plan Last 24 Hours: My Active Orders 04/17/19 16:19 EKG Documentation Completion [RC] ASDIRECTED EKG 12 Lead [EK] Routine 04/17/19 17:14 Orthostatic Vital Signs [RC] ASDIRECTED
--- NOTE | 2019-04-17 17:50 | CRLCT ---
INDICATION: Syncope. COMPARISON: None. TECHNIQUE: Axial CT of the head without contrast. FINDINGS: Moderate cerebral volume loss predominant involving frontal lobes, temporal lobes and sylvian fissures. Mild low attenuation change within the white matter consistent with chronic small-vessel scanning changes. Old lacunar infarct left basal ganglia. No acute intracranial hemorrhage, acute infarct, mass effect, or fracture. No midline shift. No abnormal ventricular dilatation. Normal calvarium and skull base. Visualized paranasal sinuses and mastoid air cells are clear. Normal orbits bilaterally. IMPRESSION: 1. No acute intracranial abnormality. 2. Moderate generalized cerebral volume loss. Sulcal volume loss predominantly involves the frontal lobes, temporal lobes and sylvian fissure. Findings are nonspecific can be seen with frontotemporal lobar degeneration. 3. Mild chronic deep white matter small vessel ischemic changes Dictated by Gallito Perez MD @ 04/17/2019 5:47:56 PM Please note that all CT scans at this facility use dose modulation, iterative reconstruction, and/or weight-based dosing when appropriate to reduce radiation dose to as low as reasonably achievable. Dictated by: Gallito Perez MD @ 04/17/2019 17:48:05 (Electronically Signed)
[2019-04-17] MEDS ORDERED: Sodium Chloride 0.9% 1,000 ML IV SCH (18:15)
[2019-04-17] MEDS ORDERED: Nitroglycerin 0.4 MG Tab.SL SL PRN (18:58)
--- NOTE | 2019-04-17 19:07 | PCM.HP ---
H&P History of Present Illness - General Date of Service: 04/17/19 Admit Problem/Dx: Admission Diagnosis/Problem Admission Diagnosis/Problem Loss of consciousness Source of Information: Patient, EMS History Limitations: Reports: No Limitations - History of Present Illness Initial Comments - Free Text/Narative: Heavenly was at a friends home and she was standing and went to sit on her walker and sat down and became dizzy and she felt as she was going to faint. Her eyes went in the back of her head and she had LOC for a short period of time. She has never done that before. Onset of Symptoms: Reports: Today, Sudden Duration of Symptoms: Reports: Minutes: Associated Symptoms: Reports: Syncope, Weakness - Related Data Allergies/Adverse Reactions: Allergies Allergy/AdvReac Type Severity Reaction Status Date / Time Penicillins Allergy Intermediate Mouth Sores Verified 03/13/19 01:20 Home Medications: Home Meds Lidocaine 5% [Lidoderm 5%] 1 patch TOP DAILY PRN 02/08/14 [History] Levothyroxine [Synthroid] 88 mcg PO QAM 10/03/15 [History] ALPRAZolam [Xanax] 0.5 mg PO BEDTIME 10/08/15 [History] Escitalopram [Lexapro] 20 mg PO QAM 10/08/15 [History] cloNIDine [Catapres] 0.1 mg PO BID PRN 10/08/15 [History] traZODone HCl [Trazodone HCl] 100 mg PO BEDTIME 10/08/15 [History] Nitroglycerin 1 tab PO ASDIRECTED PRN 10/24/15 [History] Linaclotide [Linzess] 290 mcg PO DAILY 12/15/16 [History] Gabapentin [Neurontin] 800 mg PO BID 03/28/18 [History] Esomeprazole [NexIUM] 40 mg PO DAILY 12/13/18 [History] oxyCODONE ER [OxyCONTIN] 10 mg PO Q12H PRN #20 tab.er 01/18/19 [Rx] Past Medical History HEENT History: Reports: Cataract Cardiovascular History: Reports: Arrhythmia, Hypertension, [place], Other (See Below) Other Cardiovascular History: SVT Respiratory History: Reports: COPD, Other (See Below) Other Respiratory History: Usually uses O2 at night 2LPM. Pneumonia: 11/24/2018 Gastrointestinal History: Reports: Cholelithiasis, Chronic Constipation, GERD Genitourinary History: Reports: None [employer] History: Reports: Musculoskeletal History: Reports: Back Pain, Chronic, Fracture, Osteoarthritis Other Musculoskeletal History: back pain right shoulder pain Neurological History: Reports: Migraines Psychiatric History: Reports: Anxiety, Depression Endocrine/Metabolic History: Reports: Hypothyroidism, Other (See Below) Other Endocrine/Metabolic History: 12/13/2018: reports 20# weight loss over past 6 wks Hematologic History: Reports: Anemia, B12 Deficiency, Blood Transfusion(s) Immunologic History: Reports: None Oncologic (Cancer) History: Reports: None Dermatologic History: Reports: None - Infectious Disease History Infectious Disease History: Reports: Chicken Pox - Past Surgical History Head Surgeries/Procedures: Reports: None HEENT Surgical History: Reports: Cataract Surgery GI Surgical History: Reports: Cholecystectomy, Colonoscopy, EGD Female Surgical History: Reports: Breast Biopsy, Hysterectomy, Salpingo- Oophorectomy Endocrine Surgical History: Reports: Thyroidectomy Musculoskeletal Surgical History: Reports: Arthroscopic Knee, Shoulder Surgery Other Musculoskeletal Surgeries/Procedures:: neuroma removed. R TSA 12/13/2018 due to R shoulder pain/OA Oncologic Surgical History: Reports: Biopsy of Breast Social & Family History - Family History Family Medical History: Noncontributory - Tobacco Use Smoking Status *Q: Current Every Day Smoker Years of Tobacco use: 51 Packs/Tins Daily: 0.5 - Caffeine Use Caffeine Use: Reports: Soda Other Caffeine Use: Pepsi H&P Review of Systems - Review of Systems: Review Of Systems: See Below General: Reports: No Symptoms HEENT: Reports: No Symptoms Pulmonary: Reports: No Symptoms Cardiovascular: Reports: No Symptoms Gastrointestinal: Reports: No Symptoms Genitourinary: Reports: No Symptoms Musculoskeletal: Reports: Shoulder Pain, Joint Pain Skin: Reports: No Symptoms Psychiatric: Reports: No Symptoms Neurological: Reports: No Symptoms Hematologic/Lymphatic: Reports: No Symptoms Immunologic: Reports: No Symptoms Exam - Exam Exam: See Below - Vital Signs Vital Signs: Last Vital Signs Temp 97.0 F 04/17/19 15:42 Pulse 52 L 04/17/19 18:33 Resp 18 04/17/19 18:33 BP 154/62 H 04/17/19 18:33 Pulse Ox 96 04/17/19 18:33 Orthostatic Blood Pressure [ 145/66 Standing] Orthostatic Blood Pressure [ 149/63 Sitting] Orthostatic Blood Pressure [ 159/66 Supine] Weight: 142 lb - Exam General: Alert, Oriented, Cooperative HEENT: PERRLA, Hearing Intact, Mucosa Moist & [place], Nares Patent, Normal Nasal Septum, Posterior Pharynx Clear, Conjunctiva Clear, EOMI, EACs Clear, TMs Clear Neck: Supple, Trachea Midline, 2 Lungs: Clear to Auscultation, Normal Respiratory Effort Cardiovascular: Regular Rate, Regular Rhythm GI/Abdominal Exam: Normal Bowel Sounds, Soft, Non-Tender, No Organomegaly, No Distention, No Abnormal Bruit, No Mass, Pelvis Stable Back Exam: Normal Inspection, Full Range of Motion, NT Extremities: Normal Inspection, Normal Range of Motion, Non-Tender, No Pedal Edema, Normal Capillary Refill Peripheral Pulses: 1+: Radial (L), Radial (R) Skin: Warm, Dry, Intact Neurological: Cranial Nerves Intact, Reflexes Equal Bilateral Neuro Extensive - Motor, Sensory, Reflexes: CN II-XII Intact, Normal Gait, Normal Reflexes Psychiatric: Alert, Normal Affect, Normal Mood - Patient Data Lab Results Last 24 hrs: Laboratory Results - last 24 hr 04/17/19 04/17/19 04/17/19 Range/Units 16:28 16:28 16:28 WBC 5.0 (4.5-11.0) K/uL RBC 3.28 L (3.30-5.50) M/uL Hgb 9.3 L (12.0-15.0) g/dL Hct 29.7 L (36.0-48.0) % MCV 91 (80-98) fL MCH 28 (27-31) pg MCHC 31 L (32-36) % Plt Count 152 (150-400) K/uL Neut % (Auto) 60 (36-66) % Lymph % (Auto) 32 (24-44) % [place] % (Auto) 8 H (2-6) % Eos % (Auto) 0 L (2-4) % Baso % (Auto) 0 (0-1) % Sodium 141 (140-148) mmol/L Potassium 3.2 L (3.6-5.2) mmol/L Chloride 102 (100-108) mmol/L Carbon Dioxide 33 H (21-32) mmol/L Anion Gap 9.2 (5.0-14.0) mmol/L BUN 7 (7-18) mg/dL Creatinine 1.0 (0.6-1.0) mg/dL Est Cr Clr Drug Dosing 44.80 mL/min Estimated GFR (MDRD) 54 L (>60) Glucose 106 (74-106) mg/dL Calcium 8.9 (8.5-10.1) mg/dL Iron (50-170) ug/dL TIBC (250-450) ug/dl % Saturation (20-55) % Total Bilirubin 0.3 (0.2-1.0) mg/dL AST 11 L (15-37) U/L ALT 11 L (12-78) U/L Alkaline Phosphatase 75 (46-116) U/L Troponin I < 0.017 (0.000-0.056) ng/mL Total Protein 6.4 (6.4-8.2) g/dL Albumin 3.3 L (3.4-5.0) g/dL Globulin 3.1 (2.3-3.5) g/dL Albumin/Globulin Ratio 1.1 L (1.2-2.2) Vitamin B12 (193-986) pg/ml Urine Color (YELLOW) Urine Appearance (CLEAR) Urine pH (5.0-8.0) Ur Specific [place] (1.008-1.030) Urine Protein (NEGATIVE) mg/dL Urine Glucose (UA) (NEGATIVE) mg/dL Urine Ketones (NEGATIVE) mg/dL Urine Occult Blood (NEGATIVE) Urine Nitrite (NEGATIVE) Urine Bilirubin (NEGATIVE) Urine Urobilinogen (0.2-1.0) EU/dL Ur Leukocyte Esterase (NEGATIVE) Urine RBC (0-5) Urine WBC (0-5) Ur Epithelial Cells Amorphous Sediment Urine Bacteria Urine Mucus 04/17/19 04/17/19 04/17/19 Range/Units 16:56 17:15 17:37 WBC (4.5-11.0) K/uL RBC (3.30-5.50) M/uL Hgb (12.0-15.0) g/dL Hct (36.0-48.0) % MCV (80-98) fL MCH (27-31) pg MCHC (32-36) % Plt Count (150-400) K/uL Neut % (Auto) (36-66) % Lymph % (Auto) (24-44) % [place] % (Auto) (2-6) % Eos % (Auto) (2-4) % Baso % (Auto) (0-1) % Sodium (140-148) mmol/L Potassium (3.6-5.2) mmol/L Chloride (100-108) mmol/L Carbon Dioxide (21-32) mmol/L Anion Gap (5.0-14.0) mmol/L BUN (7-18) mg/dL Creatinine (0.6-1.0) mg/dL Est Cr Clr Drug Dosing mL/min Estimated GFR (MDRD) (>60) Glucose (74-106) mg/dL Calcium (8.5-10.1) mg/dL Iron 31 L (50-170) ug/dL TIBC 272 (250-450) ug/dl % Saturation 11 L (20-55) % Total Bilirubin (0.2-1.0) mg/dL AST (15-37) U/L ALT (12-78) U/L Alkaline Phosphatase (46-116) U/L Troponin I (0.000-0.056) ng/mL Total Protein (6.4-8.2) g/dL Albumin (3.4-5.0) g/dL Globulin (2.3-3.5) g/dL Albumin/Globulin Ratio (1.2-2.2) Vitamin B12 252 (193-986) pg/ml Urine Color Yellow (YELLOW) Urine Appearance Clear (CLEAR) Urine pH 6.5 (5.0-8.0) Ur Specific [place] 1.010 (1.008-1.030) Urine Protein Negative (NEGATIVE) mg/dL Urine Glucose (UA) Negative (NEGATIVE) mg/dL Urine Ketones Negative (NEGATIVE) mg/dL Urine Occult Blood Negative (NEGATIVE) Urine Nitrite Negative (NEGATIVE) Urine Bilirubin Negative (NEGATIVE) Urine Urobilinogen 0.2 (0.2-1.0) EU/dL Ur Leukocyte Esterase Negative (NEGATIVE) Urine RBC 0-5 (0-5) Urine WBC 0-5 (0-5) Ur Epithelial Cells Few Amorphous Sediment Not seen Urine Bacteria Not seen Urine Mucus Not seen Result Diagrams: 04/17/19 16:28 04/17/19 16:28 Ezio Results Last 24 hrs: Microbiology 04/17/19 17:34 Stool Occult Blood (EZIO) - Final Stool / Feces Problem List Initiated/Reviewed/Updated: Yes Orders Last 24hrs: Active Orders 24 hr Category Date Time Status Patient Status [ADT] Routine ADT 04/17/19 18:51 Ordered Cardiac Monitoring [RC] .As Directed Care 04/17/19 18:54 Ordered EKG Documentation Completion [RC] ASDIRECTED Care 04/17/19 16:19 Active Height and Weight [RC] DAILY Care 04/17/19 18:51 Ordered Intake and Output [RC] QSHIFT Care 04/17/19 18:54 Ordered Orthostatic Vital Signs [RC] ASDIRECTED Care 04/17/19 17:14 Active Oxygen Therapy [RC] PRN Care 04/17/19 18:51 Ordered Up to Chair [RC] QID Care 04/17/19 18:51 Ordered VTE/DVT Education [RC] Per Unit Routine Care 04/17/19 18:51 Ordered Vital Signs [RC] Q4H Care 04/17/19 18:51 Ordered Regular Diet [DIET] Diet 04/18/19 Breakfast Ordered BASIC METABOLIC PANEL,BMP [CHEM] AM Lab 04/18/19 05:11 Ordered CBC WITH AUTO DIFF [HEME] AM Lab 04/18/19 05:11 Ordered ALPRAZolam [Xanax] Med 04/17/19 21:00 Ordered 0.5 mg PO BEDTIME Enoxaparin [Lovenox] Med 04/18/19 09:00 Ordered 30 mg SUBCUT DAILY Escitalopram [Lexapro] Med 04/18/19 09:00 Ordered 20 mg PO QAM Esomeprazole [NexIUM] Med 04/18/19 09:00 Ordered 40 mg PO DAILY Gabapentin [Neurontin] Med 04/17/19 21:00 Ordered 800 mg PO BID Levothyroxine [Synthroid] Med 04/18/19 09:00 Ordered 88 mcg PO QAM Nitroglycerin [Nitrostat] Med 04/17/19 18:58 Ordered 0.4 mg SL ASDIRECTED PRN Sodium Chloride 0.9% [Normal Saline] 1,000 ml Med 04/17/19 18:15 Active IV ASDIRECTED traZODone HCl [Trazodone HCl] Med 04/17/19 21:00 Ordered 100 mg PO BEDTIME Resuscitation Status Routine Resus Stat 04/17/19 18:51 Ordered EKG 12 Lead [EK] Routine Ther 04/17/19 16:19 Stop Req EKG 12 Lead [EK] Routine Ther 04/18/19 05:11 Ordered Medication Orders Alprazolam (Xanax) 0.5 mg PO BEDTIME [facility] Enoxaparin Sodium (Lovenox) 30 mg SUBCUT DAILY [facility] Escitalopram Oxalate (Lexapro) 20 mg PO QAM [facility] Sodium Chloride (Normal Saline) 1,000 mls @ 300 mls/hr IV ASDIRECTED [facility] Last Admin: 04/17/19 18:23 Dose: 300 mls/hr Levothyroxine Sodium (Synthroid) 88 mcg PO QAM [facility] Nitroglycerin (Nitrostat) 0.4 mg SL ASDIRECTED PRN PRN Reason: Chest Pain Non-Formulary Medication (Esomeprazole [Nexium]) 40 mg PO DAILY [facility] Non-Formulary Medication (Gabapentin [Neurontin]) 800 mg PO BID [facility] Non-Formulary Medication (Trazodone Hcl [Trazodone Hcl]) 100 mg PO BEDTIME [facility] Assessment/Plan Comment:: Assessment/Plan: #1. Syncope: Etiology unknown at the present time. Will monitor the heart for a cardiac rhythm problem. CT of the Head was negative. Will check orthostatic BP's. #2. Anemia. Hb dropped recently by 2 grams. Rectal has bloody mucus. Stool for occult blood pending. #3. Insomnia: Chronic will continue with Trazodone. #4. S/P surgery of the right shoulder. #5. Nicotine addiction: 3 cigs. daily #5. Hypertension: Cotinue with meds. #6. Hypokalemia: Will replace with K+
[2019-04-17] MEDS ORDERED: ALPRAZolam 0.5 MG Tab PO SCH (21:00)
[2019-04-17] MEDS ORDERED: Potassium Chloride 20 MEQ Tab.ER PO SCH (21:00)
[2019-04-17] MEDS ORDERED: traZODone 50 MG Tab PO SCH (21:00)
[2019-04-17] MEDS: Gabapentin 400 MG Cap PO SCH (21:11)
[2019-04-18 03:42] VITALS: BP 157/54
[2019-04-18] MEDS ORDERED: Levothyroxine 88 MCG Tab PO SCH (07:30)
[2019-04-18] MEDS ORDERED: Pantoprazole 40 MG Tab.CR PO SCH (07:30)
[2019-04-18] MEDS ORDERED: Potassium Chloride 20 MEQ Tab.ER PO SCH (08:00)
[2019-04-18] MEDS: Gabapentin 400 MG Cap PO SCH (08:22)
[2019-04-18] MEDS ORDERED: Escitalopram 20 MG Tab PO SCH (09:00)
[2019-04-18] MEDS ORDERED: Enoxaparin 40 MG/0.4 ML Syringe SUBCUT SCH (09:00)
[2019-04-18 13:48] VITALS: PULSE 64
--- NOTE | 2019-04-18 15:55 | PCM.PN ---
- General Info Date of Service: 04/18/19 Functional Status: Reports: Pain Controlled - Review of Systems General: Reports: No Symptoms HEENT: Reports: No Symptoms Pulmonary: Reports: No Symptoms Cardiovascular: Reports: No Symptoms Gastrointestinal: Reports: No Symptoms Genitourinary: Reports: No Symptoms Musculoskeletal: Reports: Back Pain Skin: Reports: No Symptoms Neurological: Reports: No Symptoms Psychiatric: Reports: No Symptoms - Patient Data Vitals - Most Recent: Last Vital Signs Temp 97.4 F 04/18/19 03:41 Pulse 64 04/18/19 12:00 Resp 16 04/18/19 12:00 BP 157/54 H 04/18/19 12:00 Pulse Ox 99 04/18/19 03:41 Orthostatic Blood Pressure [ 145/66 Standing] Orthostatic Blood Pressure [ 149/63 Sitting] Orthostatic Blood Pressure [ 159/66 Supine] Weight - Most Recent: 144 lb 6.409 oz I&O - Last 24 Hours: Intake & Output 04/18/19 04/18/19 04/18/19 06:59 14:59 22:59 Output Total 300 100 Balance -300 -100 Lab Results Last 24 Hours: Laboratory Results - last 24 hr 04/17/19 04/17/19 04/17/19 Range/Units 16:28 16:28 16:28 WBC 5.0 (4.5-11.0) K/uL RBC 3.28 L (3.30-5.50) M/uL Hgb 9.3 L (12.0-15.0) g/dL Hct 29.7 L (36.0-48.0) % MCV 91 (80-98) fL MCH 28 (27-31) pg MCHC 31 L (32-36) % Plt Count 152 (150-400) K/uL Neut % (Auto) 60 (36-66) % Lymph % (Auto) 32 (24-44) % [place] % (Auto) 8 H (2-6) % Eos % (Auto) 0 L (2-4) % Baso % (Auto) 0 (0-1) % Sodium 141 (140-148) mmol/L Potassium 3.2 L (3.6-5.2) mmol/L Chloride 102 (100-108) mmol/L Carbon Dioxide 33 H (21-32) mmol/L Anion Gap 9.2 (5.0-14.0) mmol/L BUN 7 (7-18) mg/dL Creatinine 1.0 (0.6-1.0) mg/dL Est Cr Clr Drug Dosing 44.80 mL/min Estimated GFR (MDRD) 54 L (>60) Glucose 106 (74-106) mg/dL Calcium 8.9 (8.5-10.1) mg/dL Iron (50-170) ug/dL TIBC (250-450) ug/dl % Saturation (20-55) % Total Bilirubin 0.3 (0.2-1.0) mg/dL AST 11 L (15-37) U/L ALT 11 L (12-78) U/L Alkaline Phosphatase 75 (46-116) U/L Troponin I < 0.017 (0.000-0.056) ng/mL Total Protein 6.4 (6.4-8.2) g/dL Albumin 3.3 L (3.4-5.0) g/dL Globulin 3.1 (2.3-3.5) g/dL Albumin/Globulin Ratio 1.1 L (1.2-2.2) Vitamin B12 (193-986) pg/ml Urine Color (YELLOW) Urine Appearance (CLEAR) Urine pH (5.0-8.0) Ur Specific [place] (1.008-1.030) Urine Protein (NEGATIVE) mg/dL Urine Glucose (UA) (NEGATIVE) mg/dL Urine Ketones (NEGATIVE) mg/dL Urine Occult Blood (NEGATIVE) Urine Nitrite (NEGATIVE) Urine Bilirubin (NEGATIVE) Urine Urobilinogen (0.2-1.0) EU/dL Ur Leukocyte Esterase (NEGATIVE) Urine RBC (0-5) Urine WBC (0-5) Ur Epithelial Cells Amorphous Sediment Urine Bacteria Urine Mucus 04/17/19 04/17/19 04/17/19 Range/Units 16:56 17:15 17:37 WBC (4.5-11.0) K/uL RBC (3.30-5.50) M/uL Hgb (12.0-15.0) g/dL Hct (36.0-48.0) % MCV (80-98) fL MCH (27-31) pg MCHC (32-36) % Plt Count (150-400) K/uL Neut % (Auto) (36-66) % Lymph % (Auto) (24-44) % [place] % (Auto) (2-6) % Eos % (Auto) (2-4) % Baso % (Auto) (0-1) % Sodium (140-148) mmol/L Potassium (3.6-5.2) mmol/L Chloride (100-108) mmol/L Carbon Dioxide (21-32) mmol/L Anion Gap (5.0-14.0) mmol/L BUN (7-18) mg/dL Creatinine (0.6-1.0) mg/dL Est Cr Clr Drug Dosing mL/min Estimated GFR (MDRD) (>60) Glucose (74-106) mg/dL Calcium (8.5-10.1) mg/dL Iron 31 L (50-170) ug/dL TIBC 272 (250-450) ug/dl % Saturation 11 L (20-55) % Total Bilirubin (0.2-1.0) mg/dL AST (15-37) U/L ALT (12-78) U/L Alkaline Phosphatase (46-116) U/L Troponin I (0.000-0.056) ng/mL Total Protein (6.4-8.2) g/dL Albumin (3.4-5.0) g/dL Globulin (2.3-3.5) g/dL Albumin/Globulin Ratio (1.2-2.2) Vitamin B12 252 (193-986) pg/ml Urine Color Yellow (YELLOW) Urine Appearance Clear (CLEAR) Urine pH 6.5 (5.0-8.0) Ur Specific [place] 1.010 (1.008-1.030) Urine Protein Negative (NEGATIVE) mg/dL Urine Glucose (UA) Negative (NEGATIVE) mg/dL Urine Ketones Negative (NEGATIVE) mg/dL Urine Occult Blood Negative (NEGATIVE) Urine Nitrite Negative (NEGATIVE) Urine Bilirubin Negative (NEGATIVE) Urine Urobilinogen 0.2 (0.2-1.0) EU/dL Ur Leukocyte Esterase Negative (NEGATIVE) Urine RBC 0-5 (0-5) Urine WBC 0-5 (0-5) Ur Epithelial Cells Few Amorphous Sediment Not seen Urine Bacteria Not seen Urine Mucus Not seen 04/18/19 04/18/19 Range/Units 04:45 04:45 WBC 4.9 (4.5-11.0) K/uL RBC 3.25 L (3.30-5.50) M/uL Hgb 9.4 L (12.0-15.0) g/dL Hct 29.6 L (36.0-48.0) % MCV 91 (80-98) fL MCH 29 (27-31) pg MCHC 32 (32-36) % Plt Count 146 L (150-400) K/uL Neut % (Auto) 43 (36-66) % Lymph % (Auto) 49 H (24-44) % [place] % (Auto) 7 H (2-6) % Eos % (Auto) 0 L (2-4) % Baso % (Auto) 1 (0-1) % Sodium 141 (140-148) mmol/L Potassium 3.9 (3.6-5.2) mmol/L Chloride 106 (100-108) mmol/L Carbon Dioxide 31 (21-32) mmol/L Anion Gap 4.0 L (5.0-14.0) mmol/L BUN 8 (7-18) mg/dL Creatinine 0.9 (0.6-1.0) mg/dL Est Cr Clr Drug Dosing 49.78 mL/min Estimated GFR (MDRD) > 60 (>60) Glucose 93 (74-106) mg/dL Calcium 8.6 (8.5-10.1) mg/dL Iron (50-170) ug/dL TIBC (250-450) ug/dl % Saturation (20-55) % Total Bilirubin (0.2-1.0) mg/dL AST (15-37) U/L ALT (12-78) U/L Alkaline Phosphatase (46-116) U/L Troponin I (0.000-0.056) ng/mL Total Protein (6.4-8.2) g/dL Albumin (3.4-5.0) g/dL Globulin (2.3-3.5) g/dL Albumin/Globulin Ratio (1.2-2.2) Vitamin B12 (193-986) pg/ml Urine Color (YELLOW) Urine Appearance (CLEAR) Urine pH (5.0-8.0) Ur Specific [place] (1.008-1.030) Urine Protein (NEGATIVE) mg/dL Urine Glucose (UA) (NEGATIVE) mg/dL Urine Ketones (NEGATIVE) mg/dL Urine Occult Blood (NEGATIVE) Urine Nitrite (NEGATIVE) Urine Bilirubin (NEGATIVE) Urine Urobilinogen (0.2-1.0) EU/dL Ur Leukocyte Esterase (NEGATIVE) Urine RBC (0-5) Urine WBC (0-5) Ur Epithelial Cells Amorphous Sediment Urine Bacteria Urine Mucus Ezio Results Last 24 Hours: Microbiology 04/17/19 17:34 Stool Occult Blood (EZIO) - Final Stool / Feces Med Orders - Current: Current Medications Alprazolam (Xanax) 0.5 mg PO BEDTIME [facility] Last Admin: 04/17/19 21:12 Dose: 0.5 mg Enoxaparin Sodium (Lovenox) 40 mg SUBCUT DAILY [facility] Last Admin: 04/18/19 08:23 Dose: 40 mg Escitalopram Oxalate (Lexapro) 20 mg PO QAM [facility] Last Admin: 04/18/19 08:22 Dose: 20 mg Gabapentin (Neurontin) 800 mg PO BID [facility] Last Admin: 04/18/19 08:22 Dose: 800 mg Levothyroxine Sodium (Synthroid) 88 mcg PO DAILY@0730 [facility] Last Admin: 04/18/19 08:20 Dose: 88 mcg Nitroglycerin (Nitrostat) 0.4 mg SL ASDIRECTED PRN PRN Reason: Chest Pain Pantoprazole Sodium (Protonix) 40 mg PO ACBREAKFAST [facility] Last Admin: 04/18/19 08:20 Dose: 40 mg Potassium Chloride (Klor-Con M20) 20 meq PO BIDMEALS [facility] Last Admin: 04/18/19 08:22 Dose: 20 meq Trazodone HCl (Trazodone) 100 mg PO BEDTIME [facility] Last Admin: 04/17/19 21:12 Dose: 100 mg Discontinued Medications Sodium Chloride (Normal Saline) 1,000 mls @ 300 mls/hr IV ASDIRECTED [facility] Last Admin: 04/17/19 18:23 Dose: 300 mls/hr Potassium Chloride (Klor-Con M20) 20 meq PO BID [facility] Last Admin: 04/17/19 21:12 Dose: 20 meq - Exam General: Alert, Oriented HEENT: Pupils Equal, Pupils Reactive, EOMI, Mucous Membr. Moist/Flat Neck: Supple Lungs: Clear to Auscultation Cardiovascular: Regular Rate, Regular Rhythm GI/Abdominal Exam: Normal Bowel Sounds, Soft, Non-Tender, No Organomegaly, No Distention, No Abnormal Bruit, No Mass, Pelvis Stable Back Exam: Paraspinal Tenderness Extremities: Normal Inspection, Normal Range of Motion, Non-Tender, No Pedal Edema, Normal Capillary Refill Peripheral Pulses: 1+: Radial (L), Radial (R) Skin: Warm, Dry, Intact Wound/Incisions: Healing Well Neurological: No New Focal Deficit Psy/Mental Status: Alert, Normal Affect, Normal Mood - Problem List Review Problem List Initiated/Reviewed/Updated: Yes - My Orders Last 24 Hours: My Active Orders 04/17/19 18:51 Patient Status [ADT] Routine Oxygen Therapy [RC] PRN Up to Chair [RC] QID VTE/DVT Education [RC] Per Unit Routine Vital Signs [RC] Q4H Resuscitation Status Routine 04/17/19 18:54 Intake and Output [RC] QSHIFT 04/17/19 18:58 Nitroglycerin [Nitrostat] 0.4 mg SL ASDIRECTED PRN 04/17/19 20:54 Convert IV to Saline Lock [OM.PC] Routine 04/17/19 21:00 ALPRAZolam [Xanax] 0.5 mg PO BEDTIME Gabapentin [Neurontin] 800 mg PO BID traZODone 100 mg PO BEDTIME 04/18/19 05:11 EKG 12 Lead [EK] Routine 04/18/19 07:30 Levothyroxine [Synthroid] 88 mcg PO DAILY@0730 Pantoprazole [ProTONIX] 40 mg PO ACBREAKFAST 04/18/19 08:00 Potassium Chloride [Klor-Con M20] 20 meq PO BIDMEALS 04/18/19 09:00 Enoxaparin [Lovenox] 40 mg SUBCUT DAILY Escitalopram [Lexapro] 20 mg PO QAM 04/18/19 Breakfast Regular Diet [DIET] - Plan Plan:: Assessment/Plan: #1. Syncope: Etiology unknown at the present time. CT of the Head was negative. Orthostatic BP's normal. #2. Anemia. Hb stable from yesterday at 9.4 was 9.2 yesterday. Stool normal color not black. #3. Insomnia: Chronic will continue with Trazodone. #4. S/P surgery of the right shoulder. #5. Nicotine addiction: 3 cigs. daily #5. Hypertension: Continue with meds. #6. Hypokalemia: stable.
--- NOTE | 2019-04-18 16:00 | PCM.DCSUM1 ---
Discharge Summary - Hospital Course Brief History: Admitted after having a LOC episode Diagnosis: Stroke: No - Discharge Data Discharge Date: 04/18/19 Discharge Disposition: Home, Self-Care 01 Condition: Fair - Patient Summary/Data Hospital Course: Admitted and observed and had no recurrent LOC spells. Orthostatic BP normal. Heart rate normal. - Patient Instructions Diet: Heart Healthy Diet Activity: As Tolerated - Discharge Plan *PRESCRIPTION DRUG MONITORING PROGRAM REVIEWED*: No *COPY OF PRESCRIPTION DRUG MONITORING REPORT IN PATIENT SOFIA: No Home Medications: Home Meds Levothyroxine [Synthroid] 88 mcg PO QAM 10/03/15 [History] ALPRAZolam [Xanax] 0.5 mg PO BEDTIME 10/08/15 [History] Escitalopram [Lexapro] 20 mg PO QAM 10/08/15 [History] traZODone HCl [Trazodone HCl] 100 mg PO BEDTIME 10/08/15 [History] Nitroglycerin 1 tab PO ASDIRECTED PRN 10/24/15 [History] Gabapentin [Neurontin] 800 mg PO BID 03/28/18 [History] Esomeprazole [NexIUM] 40 mg PO DAILY 12/13/18 [History] Forms: ED Department Discharge Referrals: PCP,None [Primary Care Provider] - - Discharge Summary/Plan Comment DC Time >30 min.: No Discharge Summary/Plan Comment: Assessment/Plan: #1. Syncope: Etiology unknown at the present time. CT of the Head was negative. Orthostatic BP's normal. #2. Anemia. Hb stable from yesterday at 9.4 was 9.2 yesterday. Stool normal color not black. #3. Insomnia: Chronic will continue with Trazodone. #4. S/P surgery of the right shoulder. #5. Nicotine addiction: 3 cigs. daily #5. Hypertension: Continue with meds. #6. Hypokalemia: stable. - General Info Date of Service: 04/18/19 Functional Status: Reports: Pain Controlled - Review of Systems General: Reports: No Symptoms HEENT: Reports: No Symptoms Pulmonary: Reports: No Symptoms Cardiovascular: Reports: No Symptoms Gastrointestinal: Reports: No Symptoms Genitourinary: Reports: No Symptoms Musculoskeletal: Reports: No Symptoms Skin: Reports: No Symptoms Neurological: Reports: No Symptoms Psychiatric: Reports: No Symptoms - Patient Data Vitals - Most Recent: Last Vital Signs Temp 97.4 F 04/18/19 03:41 Pulse 64 04/18/19 12:00 Resp 16 04/18/19 12:00 BP 157/54 H 04/18/19 12:00 Pulse Ox 99 04/18/19 03:41 Orthostatic Blood Pressure [ 145/66 Standing] Orthostatic Blood Pressure [ 149/63 Sitting] Orthostatic Blood Pressure [ 159/66 Supine] Weight - Most Recent: 144 lb 6.409 oz I&O - Last 24 hours: Intake & Output 04/18/19 04/18/19 04/18/19 06:59 14:59 22:59 Output Total 300 100 Balance -300 -100 Lab Results - Last 24 hrs: Laboratory Results - last 24 hr 04/17/19 04/17/19 04/17/19 Range/Units 16:28 16:28 16:28 WBC 5.0 (4.5-11.0) K/uL RBC 3.28 L (3.30-5.50) M/uL Hgb 9.3 L (12.0-15.0) g/dL Hct 29.7 L (36.0-48.0) % MCV 91 (80-98) fL MCH 28 (27-31) pg MCHC 31 L (32-36) % Plt Count 152 (150-400) K/uL Neut % (Auto) 60 (36-66) % Lymph % (Auto) 32 (24-44) % [place] % (Auto) 8 H (2-6) % Eos % (Auto) 0 L (2-4) % Baso % (Auto) 0 (0-1) % Sodium 141 (140-148) mmol/L Potassium 3.2 L (3.6-5.2) mmol/L Chloride 102 (100-108) mmol/L Carbon Dioxide 33 H (21-32) mmol/L Anion Gap 9.2 (5.0-14.0) mmol/L BUN 7 (7-18) mg/dL Creatinine 1.0 (0.6-1.0) mg/dL Est Cr Clr Drug Dosing 44.80 mL/min Estimated GFR (MDRD) 54 L (>60) Glucose 106 (74-106) mg/dL Calcium 8.9 (8.5-10.1) mg/dL Iron (50-170) ug/dL TIBC (250-450) ug/dl % Saturation (20-55) % Total Bilirubin 0.3 (0.2-1.0) mg/dL AST 11 L (15-37) U/L ALT 11 L (12-78) U/L Alkaline Phosphatase 75 (46-116) U/L Troponin I < 0.017 (0.000-0.056) ng/mL Total Protein 6.4 (6.4-8.2) g/dL Albumin 3.3 L (3.4-5.0) g/dL Globulin 3.1 (2.3-3.5) g/dL Albumin/Globulin Ratio 1.1 L (1.2-2.2) Vitamin B12 (193-986) pg/ml Urine Color (YELLOW) Urine Appearance (CLEAR) Urine pH (5.0-8.0) Ur Specific George (1.008-1.030) Urine Protein (NEGATIVE) mg/dL Urine Glucose (UA) (NEGATIVE) mg/dL Urine Ketones (NEGATIVE) mg/dL Urine Occult Blood (NEGATIVE) Urine Nitrite (NEGATIVE) Urine Bilirubin (NEGATIVE) Urine Urobilinogen (0.2-1.0) EU/dL Ur Leukocyte Esterase (NEGATIVE) Urine RBC (0-5) Urine WBC (0-5) Ur Epithelial Cells Amorphous Sediment Urine Bacteria Urine Mucus 04/17/19 04/17/19 04/17/19 Range/Units 16:56 17:15 17:37 WBC (4.5-11.0) K/uL RBC (3.30-5.50) M/uL Hgb (12.0-15.0) g/dL Hct (36.0-48.0) % MCV (80-98) fL MCH (27-31) pg MCHC (32-36) % Plt Count (150-400) K/uL Neut % (Auto) (36-66) % Lymph % (Auto) (24-44) % [place] % (Auto) (2-6) % Eos % (Auto) (2-4) % Baso % (Auto) (0-1) % Sodium (140-148) mmol/L Potassium (3.6-5.2) mmol/L Chloride (100-108) mmol/L Carbon Dioxide (21-32) mmol/L Anion Gap (5.0-14.0) mmol/L BUN (7-18) mg/dL Creatinine (0.6-1.0) mg/dL Est Cr Clr Drug Dosing mL/min Estimated GFR (MDRD) (>60) Glucose (74-106) mg/dL Calcium (8.5-10.1) mg/dL Iron 31 L (50-170) ug/dL TIBC 272 (250-450) ug/dl % Saturation 11 L (20-55) % Total Bilirubin (0.2-1.0) mg/dL AST (15-37) U/L ALT (12-78) U/L Alkaline Phosphatase (46-116) U/L Troponin I (0.000-0.056) ng/mL Total Protein (6.4-8.2) g/dL Albumin (3.4-5.0) g/dL Globulin (2.3-3.5) g/dL Albumin/Globulin Ratio (1.2-2.2) Vitamin B12 252 (193-986) pg/ml Urine Color Yellow (YELLOW) Urine Appearance Clear (CLEAR) Urine pH 6.5 (5.0-8.0) Ur Specific George 1.010 (1.008-1.030) Urine Protein Negative (NEGATIVE) mg/dL Urine Glucose (UA) Negative (NEGATIVE) mg/dL Urine Ketones Negative (NEGATIVE) mg/dL Urine Occult Blood Negative (NEGATIVE) Urine Nitrite Negative (NEGATIVE) Urine Bilirubin Negative (NEGATIVE) Urine Urobilinogen 0.2 (0.2-1.0) EU/dL Ur Leukocyte Esterase Negative (NEGATIVE) Urine RBC 0-5 (0-5) Urine WBC 0-5 (0-5) Ur Epithelial Cells Few Amorphous Sediment Not seen Urine Bacteria Not seen Urine Mucus Not seen 04/18/19 04/18/19 Range/Units 04:45 04:45 WBC 4.9 (4.5-11.0) K/uL RBC 3.25 L (3.30-5.50) M/uL Hgb 9.4 L (12.0-15.0) g/dL Hct 29.6 L (36.0-48.0) % MCV 91 (80-98) fL MCH 29 (27-31) pg MCHC 32 (32-36) % Plt Count 146 L (150-400) K/uL Neut % (Auto) 43 (36-66) % Lymph % (Auto) 49 H (24-44) % [place] % (Auto) 7 H (2-6) % Eos % (Auto) 0 L (2-4) % Baso % (Auto) 1 (0-1) % Sodium 141 (140-148) mmol/L Potassium 3.9 (3.6-5.2) mmol/L Chloride 106 (100-108) mmol/L Carbon Dioxide 31 (21-32) mmol/L Anion Gap 4.0 L (5.0-14.0) mmol/L BUN 8 (7-18) mg/dL Creatinine 0.9 (0.6-1.0) mg/dL Est Cr Clr Drug Dosing 49.78 mL/min Estimated GFR (MDRD) > 60 (>60) Glucose 93 (74-106) mg/dL Calcium 8.6 (8.5-10.1) mg/dL Iron (50-170) ug/dL TIBC (250-450) ug/dl % Saturation (20-55) % Total Bilirubin (0.2-1.0) mg/dL AST (15-37) U/L ALT (12-78) U/L Alkaline Phosphatase (46-116) U/L Troponin I (0.000-0.056) ng/mL Total Protein (6.4-8.2) g/dL Albumin (3.4-5.0) g/dL Globulin (2.3-3.5) g/dL Albumin/Globulin Ratio (1.2-2.2) Vitamin B12 (193-986) pg/ml Urine Color (YELLOW) Urine Appearance (CLEAR) Urine pH (5.0-8.0) Ur Specific George (1.008-1.030) Urine Protein (NEGATIVE) mg/dL Urine Glucose (UA) (NEGATIVE) mg/dL Urine Ketones (NEGATIVE) mg/dL Urine Occult Blood (NEGATIVE) Urine Nitrite (NEGATIVE) Urine Bilirubin (NEGATIVE) Urine Urobilinogen (0.2-1.0) EU/dL Ur Leukocyte Esterase (NEGATIVE) Urine RBC (0-5) Urine WBC (0-5) Ur Epithelial Cells Amorphous Sediment Urine Bacteria Urine Mucus OWEN Results - Last 24 hrs: Microbiology 04/17/19 17:34 Stool Occult Blood (OWEN) - Final Stool / Feces Med Orders - Current: Current Medications Alprazolam (Xanax) 0.5 mg PO BEDTIME [facility] Last Admin: 04/17/19 21:12 Dose: 0.5 mg Enoxaparin Sodium (Lovenox) 40 mg SUBCUT DAILY [facility] Last Admin: 04/18/19 08:23 Dose: 40 mg Escitalopram Oxalate (Lexapro) 20 mg PO QAM [facility] Last Admin: 04/18/19 08:22 Dose: 20 mg Gabapentin (Neurontin) 800 mg PO BID [facility] Last Admin: 04/18/19 08:22 Dose: 800 mg Levothyroxine Sodium (Synthroid) 88 mcg PO DAILY@0730 [facility] Last Admin: 04/18/19 08:20 Dose: 88 mcg Nitroglycerin (Nitrostat) 0.4 mg SL ASDIRECTED PRN PRN Reason: Chest Pain Pantoprazole Sodium (Protonix) 40 mg PO ACBREAKFAST [facility] Last Admin: 04/18/19 08:20 Dose: 40 mg Potassium Chloride (Klor-Con M20) 20 meq PO BIDMEALS [facility] Last Admin: 04/18/19 08:22 Dose: 20 meq Trazodone HCl (Trazodone) 100 mg PO BEDTIME [facility] Last Admin: 04/17/19 21:12 Dose: 100 mg Discontinued Medications Sodium Chloride (Normal Saline) 1,000 mls @ 300 mls/hr IV ASDIRECTED [facility] Last Admin: 04/17/19 18:23 Dose: 300 mls/hr Potassium Chloride (Klor-Con M20) 20 meq PO BID [facility] Last Admin: 04/17/19 21:12 Dose: 20 meq - Exam General: Reports: Alert, Oriented HEENT: Reports: Pupils Equal, Pupils Reactive, EOMI, Mucous Membr. Moist/[place] Neck: Reports: Supple Lungs: Reports: Clear to Auscultation, Normal Respiratory Effort Cardiovascular: Reports: Regular Rate, Regular Rhythm GI/Abdominal Exam: Normal Bowel Sounds, Soft, Non-Tender, No Organomegaly, No Distention, No Abnormal Bruit, No Mass, Pelvis Stable Back Exam: Reports: Paraspinal Tenderness Extremities: Normal Inspection, Normal Range of Motion, Non-Tender, No Pedal Edema, Normal Capillary Refill Skin: Reports: Warm, Dry, Intact Neurological: Reports: No New Focal Deficit Psy/Mental Status: Reports: Alert, Normal Affect, Normal Mood
== END 2019-04-18 16:26 | disposition home or self-care (01) | DRG 312 ==
LOC: JP.ED 15:28 → JP.ICU 18:51
PROVIDERS: ADMIT Internal Medicine; ATTEND Internal Medicine
DX: R55 Syncope and collapse (principal); D64.9 Anemia, unspecified; G47.00 Insomnia, unspecified; F51.9 Sleep disorder not due to a substance or known physiological condition, unspecified; F17.200 Nicotine dependence, unspecified, uncomplicated; I10 Essential (primary) hypertension; E87.6 Hypokalemia; I25.2 Old myocardial infarction; J44.9 Chronic obstructive pulmonary disease, unspecified; K21.9 Gastro-esophageal reflux disease without esophagitis; K59.00 Constipation, unspecified; G89.29 Other chronic pain; M54.9 Dorsalgia, unspecified; F32.9 Major depressive disorder, single episode, unspecified; F41.9 Anxiety disorder, unspecified; E03.9 Hypothyroidism, unspecified; E53.8 Deficiency of other specified B group vitamins; Z88.0 Allergy status to penicillin; Z79.890 Hormone replacement therapy; Z99.81 Dependence on supplemental oxygen; Z79.899 Other long term (current) drug therapy
CPT/HCPCS: 36415; 70450; 80053; 81001; 82272; 82607; 83550; 84484; 85025; 93005; J7030; 80048; 93010; 99284; 99285-25; A9270-GY; J1650

== ENCOUNTER 2019-04-21 00:15 | Emergency (ER) | payer MEDICARE, OTHER ==
--- NOTE | 2019-04-21 00:50 | EDM.PDOC ---
ED HPI GENERAL MEDICAL PROBLEM - General Chief Complaint: Lower Extremity Injury/Pain Stated Complaint: LEGS TINGLING Time Seen by Provider: 04/21/19 00:44 Source of Information: Reports: Patient History Limitations: Reports: No Limitations - History of Present Illness INITIAL COMMENTS - FREE TEXT/NARRATIVE: pt was just hopitalized for a syncopal episode. sHe was found to have a lower hg at 9.2. She was worked up by Dr Rosa and discharged. She had a neg cat scan of the head. Onset: Today Duration: Hour(s): denies pain Pain Score (Numeric/FACES): 0 - Related Data Allergies Allergy/AdvReac Type Severity Reaction Status Date / Time Penicillins Allergy Intermediate Mouth Sores Verified 04/21/19 00:42 Home Meds: Home Meds Levothyroxine [Synthroid] 88 mcg PO QAM 10/03/15 [History] ALPRAZolam [Xanax] 0.5 mg PO BEDTIME 10/08/15 [History] Escitalopram [Lexapro] 20 mg PO QAM 10/08/15 [History] traZODone HCl [Trazodone HCl] 100 mg PO BEDTIME 10/08/15 [History] Nitroglycerin 1 tab PO ASDIRECTED PRN 10/24/15 [History] Gabapentin [Neurontin] 800 mg PO BID 03/28/18 [History] Esomeprazole [NexIUM] 40 mg PO DAILY 12/13/18 [History] Past Medical History HEENT History: Reports: Cataract Cardiovascular History: Reports: Arrhythmia, Hypertension, Other (See Below) Other Cardiovascular History: SVT Respiratory History: Reports: COPD, Other (See Below) Other Respiratory History: Usually uses O2 at night 2LPM. Pneumonia: 11/24/2018 Gastrointestinal History: Reports: Cholelithiasis, Chronic Constipation, GERD Genitourinary History: Reports: None EP TECH History: Reports: Musculoskeletal History: Reports: Back Pain, Chronic, Fracture, Osteoarthritis Other Musculoskeletal History: back pain right shoulder pain Neurological History: Reports: Migraines Psychiatric History: Reports: Anxiety, Depression Endocrine/Metabolic History: Reports: Hypothyroidism, Other (See Below) Other Endocrine/Metabolic History: 12/13/2018: reports 20# weight loss over past 6 wks Hematologic History: Reports: Anemia, B12 Deficiency, Blood Transfusion(s) Immunologic History: Reports: None Oncologic (Cancer) History: Reports: None Dermatologic History: Reports: None - Infectious Disease History Infectious Disease History: Reports: Chicken Pox - Past Surgical History Head Surgeries/Procedures: Reports: None HEENT Surgical History: Reports: Cataract Surgery GI Surgical History: Reports: Cholecystectomy, Colonoscopy, EGD Female Surgical History: Reports: Breast Biopsy, Hysterectomy, Salpingo- Oophorectomy Endocrine Surgical History: Reports: Thyroidectomy Musculoskeletal Surgical History: Reports: Arthroscopic Knee, Shoulder Surgery Other Musculoskeletal Surgeries/Procedures:: neuroma removed. R TSA 12/13/2018 due to R shoulder pain/OA Oncologic Surgical History: Reports: Biopsy of Breast Social & Family History - Family History Family Medical History: Noncontributory - Caffeine Use Caffeine Use: Reports: None Other Caffeine Use: Pepsi Review of Systems - Review of Systems Review Of Systems: See Below Constitutional: Reports: No Symptoms Eyes: Reports: No Symptoms Ears: Reports: No Symptoms Nose: Reports: No Symptoms Mouth/Throat: Reports: No Symptoms Respiratory: Reports: No Symptoms Cardiovascular: Reports: No Symptoms GI/Abdominal: Reports: No Symptoms Musculoskeletal: Reports: Other (numbness and a feeling of coolness in the left leg. She does have a history of neuropathy and she has tingling in her legs. This has come up to nearly the knee level. ) ED EXAM, GENERAL - Physical Exam Exam: See Below Free Text/Narrative:: pt arrived with a feeling that the left leg was cold and she had tingling in both legs to the knee level. She was just hopitalized and worked up throughly. Exam Limited By: No Limitations General Appearance: Alert, Anxious, Moderate Distress Ears: Normal TMs Nose: Normal Inspection Throat/Mouth: Normal Inspection Head: Atraumatic Neck: Normal Inspection Respiratory/Chest: No Respiratory Distress Cardiovascular: Regular Rate, Rhythm GI/Abdominal: Soft, Non-Tender (Female) Exam: Deferred Rectal (Female) Exam: Deferred Back Exam: Normal Inspection Extremities: Other (pt had excellent pulses and good color. She has tingling in her legs. There is no temp changes. She has normal strength. ) Psychiatric: Normal Affect Course - Vital Signs Last Recorded V/S: Last Vital Signs Temp 36.6 C 04/21/19 00:52 Pulse 68 04/21/19 00:52 Resp 13 04/21/19 00:52 BP 150/74 H 04/21/19 00:52 Pulse Ox 96 04/21/19 00:52 - Re-Assessments/Exams Free Text/Narrative Re-Assessment/Exam: 04/21/19 01:14 pt has had a recent through work up with a neg cat scan of the head. The pt is feeling like her left foot is cold. This came on suddenly. She was concerned that something was going on with the circulation. 04/21/19 01:16 Departure - Departure Time of Disposition: 01:17 Disposition: Home, Self-Care 01 Condition: Fair Clinical Impression: Neuropathy - Discharge Information Referrals: Azam Rosa Sr, MD [Primary Care Provider] - Forms: ED Department Discharge Care Plan Goals: continue to take present meds. discuss the changes in numbness and tingling in her legs with Dr Rosa.
[2019-04-21 00:55] VITALS: BP 150/74; PULSE 68
== END 2019-04-21 01:20 | disposition home or self-care (01) ==
LOC: JP.ED 00:15
DX: G62.9 Polyneuropathy, unspecified (principal); I10 Essential (primary) hypertension; J44.9 Chronic obstructive pulmonary disease, unspecified; F41.9 Anxiety disorder, unspecified; F32.9 Major depressive disorder, single episode, unspecified; E03.9 Hypothyroidism, unspecified; K21.9 Gastro-esophageal reflux disease without esophagitis; Z88.0 Allergy status to penicillin; Z79.899 Other long term (current) drug therapy
CPT/HCPCS: 99282; 99283

== ENCOUNTER 2019-06-18 23:11 | Emergency (ER) | payer MEDICARE, OTHER ==
[2019-06-18 23:34] VITALS: PULSE 88
[2019-06-18 23:54] VITALS: BP 161/92
--- NOTE | 2019-06-19 00:09 | EDM.PDOC ---
ED HPI GENERAL MEDICAL PROBLEM - General Chief Complaint: Cardiovascular Problem Stated Complaint: HIGH BP Time Seen by Provider: 06/19/19 00:08 Source of Information: Reports: Patient History Limitations: Reports: No Limitations - History of Present Illness INITIAL COMMENTS - FREE TEXT/NARRATIVE: This lady is here because she thinks her blood pressure may be out of control. She got in an argument with her landlady over something having to do with a fire alarm and fired door. Her blood pressure was elevated so she took a clonidine tablet. It seemed like her blood pressure stayed up so she decided to come in. She has clonidine at home for occasional use. She's not sure what dose of clonidine she took. 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(s) Other Treatments WO[employer]AT [employer] SUPERVISOR: clonidine - Related Data Allergies Allergy/AdvReac Type Severity Reaction Status Date / Time Penicillins Allergy Intermediate Mouth Sores Verified 04/21/19 00:42 Home Meds: Home Meds Levothyroxine [Synthroid] 88 mcg PO QAM 10/03/15 [History] ALPRAZolam [Xanax] 0.5 mg PO BEDTIME 10/08/15 [History] Escitalopram [Lexapro] 20 mg PO QAM 10/08/15 [History] traZODone HCl [Trazodone HCl] 100 mg PO BEDTIME 10/08/15 [History] Nitroglycerin 1 tab PO ASDIRECTED PRN 10/24/15 [History] Gabapentin [Neurontin] 800 mg PO BID 03/28/18 [History] Esomeprazole [NexIUM] 40 mg PO DAILY 12/13/18 [History] Past Medical History HEENT History: Reports: Cataract Cardiovascular History: Reports: Arrhythmia, Hypertension, Other (See Below) Other Cardiovascular History: SVT Respiratory History: Reports: COPD, Other (See Below) Other Respiratory History: Usually uses O2 at night 2LPM. 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: Musculoskeletal History: Reports: Back Pain, Chronic, Fracture, Osteoarthritis Other Musculoskeletal History: back pain right shoulder pain Neurological History: Reports: Migraines Psychiatric History: Reports: Anxiety, Depression Endocrine/Metabolic History: Reports: Hypothyroidism, Other (See Below) Other Endocrine/Metabolic History: 12/13/2018: reports 20# weight loss over past 6 wks Hematologic History: Reports: Anemia, B12 Deficiency, Blood Transfusion(s) Immunologic History: Reports: None Oncologic (Cancer) History: Reports: None Dermatologic History: Reports: None - Infectious Disease History Infectious Disease History: Reports: Chicken Pox - Past Surgical History HEENT Surgical History: Reports: Cataract Surgery GI Surgical History: Reports: Cholecystectomy, Colonoscopy, EGD Female Surgical History: Reports: Breast Biopsy, Hysterectomy, Salpingo- Oophorectomy Endocrine Surgical History: Reports: Thyroidectomy Musculoskeletal Surgical History: Reports: Arthroscopic Knee, Shoulder Surgery Other Musculoskeletal Surgeries/Procedures:: neuroma removed. R TSA 12/13/2018 due to R shoulder pain/OA Oncologic Surgical History: Reports: Biopsy of Breast Social & Family History - Family History Family Medical History: Noncontributory - Tobacco Use Smoking Status *Q: Current Every Day Smoker Years of Tobacco use: 60 Packs/Tins Daily: 1 - Caffeine Use Caffeine Use: Reports: Soda Other Caffeine Use: Pepsi Caffeine Use Comment: 3-4 pepsis per day - Recreational Drug Use Recreational Drug Use: No ED ROS GENERAL - Review of Systems Review Of Systems: ROS reveals no pertinent complaints other than HPI. ED EXAM, GENERAL - Physical Exam Exam: See Below Exam Limited By: No Limitations General Appearance: Alert, No Apparent Distress, Thin Eye Exam: Bilateral Eye: Normal Inspection Throat/Mouth: Normal Oropharynx Neck: Normal Inspection Respiratory/Chest: Lungs Clear Cardiovascular: Normal Peripheral Pulses, Regular Rate, Rhythm Extremities: Normal Inspection, No Pedal Edema Neurological: Alert, Oriented, CN II-XII Intact, Normal Cognition Psychiatric: Normal Affect, Normal Mood Skin Exam: Warm, Dry Course - Vital Signs Last Recorded V/S: Last Vital Signs Temp 36.0 C 06/18/19 23:31 Pulse 88 06/18/19 23:31 Resp 16 06/18/19 23:31 BP 161/92 H 06/18/19 23:54 Pulse Ox 96 06/18/19 23:31 - Re-Assessments/Exams Free Text/Narrative Re-Assessment/Exam: 06/19/19 06:27 Blood pressures as noted. I explained to the lady that her blood pressure is a little bit elevated but does not need to be lowered on an emergency basis. I explained that danger and trying to lower the person's blood pressure except in cases of end organ damage Departure - Departure Time of Disposition: 00:08 Disposition: Home, Self-Care 01 Condition: Fair Clinical Impression: Paroxysmal hypertension Instructions: Hypertension Referrals: Azam Rosa Sr, MD [Primary Care Provider] - Forms: ED Department Discharge Additional Instructions: Check your blood pressure in the morning after the clonidine has worn off. If the blood pressure is still over 170 then follow-up with your Dr. Tomorrow. Otherwise see your doctor within the next week.
== END 2019-06-19 00:17 | disposition home or self-care (01) ==
LOC: JP.ED 23:11
DX: I10 Essential (primary) hypertension (principal); J44.9 Chronic obstructive pulmonary disease, unspecified; K21.9 Gastro-esophageal reflux disease without esophagitis; F32.9 Major depressive disorder, single episode, unspecified; F41.9 Anxiety disorder, unspecified; F17.210 Nicotine dependence, cigarettes, uncomplicated; Z88.0 Allergy status to penicillin
CPT/HCPCS: 99282

== ENCOUNTER 2019-07-11 21:24 | Emergency (ER) | payer MEDICARE, OTHER ==
[2019-07-11 21:36] VITALS: BP 189/75; PULSE 58
[2019-07-11] MEDS ORDERED: Aspirin 81 MG Tab.Chew PO ONE (21:37)
--- NOTE | 2019-07-11 22:32 | CRLCR ---
Indication: Chest pain with inspiration Technique: Chest 1 view Comparison: November 29, 2018 Findings/Impression: Normal cardiomediastinal silhouette. Lungs and pleural spaces are clear. Status post right shoulder arthroplasty. Mild scoliosis of the spine with multilevel degenerative disc changes. Surgical clips in the right upper quadrant. Dictated by May Zuniga MD @ Jul 11 2019 10:30PM Signed by Dr. May Zuniga @ Jul 11 2019 10:31PM
[2019-07-11] MEDS ORDERED: Albuterol 0.083% 2.5 MG/3 ML Neb Soln NEB ONE (22:51)
--- NOTE | 2019-07-11 22:57 | EDM.PDOC ---
ED HPI GENERAL MEDICAL PROBLEM - General Chief Complaint: Chest Pain Stated Complaint: CHEST PAIN LEFT SIDE Time Seen by Provider: 07/11/19 22:52 Source of Information: Reports: Patient History Limitations: Reports: No Limitations, Other (pt has felt fatiqued and today she did develop left sided chest pain. She does have some pain when she takes a deep breath. ) - History of Present Illness INITIAL COMMENTS - FREE TEXT/NARRATIVE: yellow sputum, pain on the left with deep breathing. Onset: Today, Other (pt has been uncomfortable most of the day. ) Duration: Hour(s): Location: Reports: Chest Associated Symptoms: Reports: Chest Pain, Cough, Other ( raising yellow sputum. ) Chest Pain Score (Numeric/FACES): 8 - Related Data Allergies Allergy/AdvReac Type Severity Reaction Status Date / Time Penicillins Allergy Intermediate Mouth Sores Verified 07/11/19 21:33 Home Meds: Home Meds Levothyroxine [Synthroid] 88 mcg PO QAM 10/03/15 [History] ALPRAZolam [Xanax] 0.5 mg PO BEDTIME 10/08/15 [History] Escitalopram [Lexapro] 20 mg PO QAM 10/08/15 [History] traZODone HCl [Trazodone HCl] 100 mg PO BEDTIME 10/08/15 [History] Nitroglycerin 1 tab PO ASDIRECTED PRN 10/24/15 [History] Gabapentin [Neurontin] 800 mg PO TID 03/28/18 [History] Esomeprazole [NexIUM] 40 mg PO DAILY 12/13/18 [History] Past Medical History HEENT History: Reports: Cataract Cardiovascular History: Reports: Arrhythmia, Hypertension, Other (See Below) Other Cardiovascular History: SVT Respiratory History: Reports: COPD, Pneumonia, Recurrent, SOB, Other (See Below) Other Respiratory History: Usually uses O2 at night 2LPM. 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: Musculoskeletal History: Reports: Back Pain, Chronic, Fracture, Osteoarthritis Other Musculoskeletal History: back pain right shoulder pain Neurological History: Reports: Migraines Psychiatric History: Reports: Anxiety, Depression Endocrine/Metabolic History: Reports: Hypothyroidism, Other (See Below) Other Endocrine/Metabolic History: 12/13/2018: reports 20# weight loss over past 6 wks Hematologic History: Reports: Anemia, B12 Deficiency, Blood Transfusion(s) Immunologic History: Reports: None Oncologic (Cancer) History: Reports: None Dermatologic History: Reports: None - Infectious Disease History Infectious Disease History: Reports: Chicken Pox, Influenza, Mumps - Past Surgical History HEENT Surgical History: Reports: Cataract Surgery GI Surgical History: Reports: Cholecystectomy, Colonoscopy, EGD Female Surgical History: Reports: Breast Biopsy, Hysterectomy, Salpingo- Oophorectomy Endocrine Surgical History: Reports: Thyroidectomy Musculoskeletal Surgical History: Reports: Arthroscopic Knee, Shoulder Surgery Other Musculoskeletal Surgeries/Procedures:: neuroma removed. R TSA 12/13/2018 due to R shoulder pain/OA Oncologic Surgical History: Reports: Biopsy of Breast Social & Family History - Family History Family Medical History: Noncontributory - Tobacco Use Smoking Status *Q: Current Every Day Smoker Years of Tobacco use: 50 Packs/Tins Daily: 0.3 - Caffeine Use Caffeine Use: Reports: Soda Other Caffeine Use: Pepsi Caffeine Use Comment: 3-4 pepsis per day - Recreational Drug Use Recreational Drug Use: No ED ROS GENERAL - Review of Systems Review Of Systems: See Below Constitutional: Reports: Malaise HEENT: Reports: No Symptoms Respiratory: Reports: Cough, Sputum, Other ( this has been the case for 3 days. ) Cardiovascular: Reports: No Symptoms Endocrine: Reports: No Symptoms GI/Abdominal: Reports: No Symptoms : Reports: No Symptoms Musculoskeletal: Reports: No Symptoms Skin: Reports: No Symptoms Neurological: Reports: No Symptoms Psychiatric: Reports: No Symptoms ED EXAM, GENERAL - Physical Exam Exam: See Below Free Text/Narrative:: Pt arrived with pain with deep breathing she is coughing up yellow sputum Exam Limited By: No Limitations General Appearance: Alert, Anxious Ears: Normal TMs Nose: Normal Inspection Throat/Mouth: Normal Inspection Head: Atraumatic Neck: Normal Inspection Respiratory/Chest: Decreased Breath Sounds, Rhonchi Cardiovascular: Regular Rate, Rhythm GI/Abdominal: Soft, Non-Tender (Female) Exam: Deferred Rectal (Female) Exam: Deferred Back Exam: Normal Inspection Extremities: Other ( no edema present. ) Course - Vital Signs Last Recorded V/S: Last Vital Signs Temp 36.1 C 07/11/19 21:32 Pulse 58 L 07/11/19 21:32 Resp 13 07/11/19 21:32 BP 189/75 H 07/11/19 21:32 Pulse Ox 98 07/11/19 21:32 - Orders/Labs/Meds Orders: Active Orders 24 hr Category Date Time Status EKG Documentation Completion [RC] ASDIRECTED Care 07/11/19 21:38 Active RT Aerosol Therapy [RC] ASDIRECTED Care 07/11/19 22:51 Active EKG 12 Lead [EK] Routine Ther 07/11/19 21:38 Ordered Labs: Laboratory Tests 07/11/19 07/11/19 07/11/19 Range/Units 21:42 21:42 21:42 WBC 4.0 L (4.5-11.0) K/uL RBC 3.58 (3.30-5.50) M/uL Hgb 10.8 L (12.0-15.0) g/dL Hct 33.2 L (36.0-48.0) % MCV 93 (80-98) fL MCH 30 (27-31) pg MCHC 33 (32-36) % Plt Count 143 L (150-400) K/uL Neut % (Auto) 31 L (36-66) % Lymph % (Auto) 63 H (24-44) % Winn % (Auto) 5 (2-6) % Eos % (Auto) 0 L (2-4) % Baso % (Auto) 1 (0-1) % Sodium 141 (140-148) mmol/L Potassium 3.3 L (3.6-5.2) mmol/L Chloride 103 (100-108) mmol/L Carbon Dioxide 27 (21-32) mmol/L Anion Gap 14.3 H (5.0-14.0) mmol/L BUN 12 (7-18) mg/dL Creatinine 1.5 H D (0.6-1.0) mg/dL Est Cr Clr Drug Dosing 28.71 mL/min Estimated GFR (MDRD) 34 L (>60) Glucose 110 H (74-106) mg/dL Calcium 9.0 (8.5-10.1) mg/dL Total Bilirubin 0.3 (0.2-1.0) mg/dL AST 13 L (15-37) U/L ALT 13 (12-78) U/L Alkaline Phosphatase 80 (46-116) U/L Troponin I < 0.017 (0.000-0.056) ng/mL Total Protein 6.7 (6.4-8.2) g/dL Albumin 3.8 (3.4-5.0) g/dL Globulin 2.9 (2.3-3.5) g/dL Albumin/Globulin Ratio 1.3 (1.2-2.2) Urine Color (YELLOW) Urine Appearance (CLEAR) Urine pH (5.0-8.0) Ur Specific [place] (1.008-1.030) Urine Protein (NEGATIVE) mg/dL Urine Glucose (UA) (NEGATIVE) mg/dL Urine Ketones (NEGATIVE) mg/dL Urine Occult Blood (NEGATIVE) Urine Nitrite (NEGATIVE) Urine Bilirubin (NEGATIVE) Urine Urobilinogen (0.2-1.0) EU/dL Ur Leukocyte Esterase (NEGATIVE) Urine RBC (0-5) Urine WBC (0-5) Ur Epithelial Cells Amorphous Sediment Urine Bacteria Urine Mucus Urine Other 07/11/19 Range/Units 22:09 WBC (4.5-11.0) K/uL RBC (3.30-5.50) M/uL Hgb (12.0-15.0) g/dL Hct (36.0-48.0) % MCV (80-98) fL MCH (27-31) pg MCHC (32-36) % Plt Count (150-400) K/uL Neut % (Auto) (36-66) % Lymph % (Auto) (24-44) % Winn % (Auto) (2-6) % Eos % (Auto) (2-4) % Baso % (Auto) (0-1) % Sodium (140-148) mmol/L Potassium (3.6-5.2) mmol/L Chloride (100-108) mmol/L Carbon Dioxide (21-32) mmol/L Anion Gap (5.0-14.0) mmol/L BUN (7-18) mg/dL Creatinine (0.6-1.0) mg/dL Est Cr Clr Drug Dosing mL/min Estimated GFR (MDRD) (>60) Glucose (74-106) mg/dL Calcium (8.5-10.1) mg/dL Total Bilirubin (0.2-1.0) mg/dL AST (15-37) U/L ALT (12-78) U/L Alkaline Phosphatase (46-116) U/L Troponin I (0.000-0.056) ng/mL Total Protein (6.4-8.2) g/dL Albumin (3.4-5.0) g/dL Globulin (2.3-3.5) g/dL Albumin/Globulin Ratio (1.2-2.2) Urine Color Yellow (YELLOW) Urine Appearance Clear (CLEAR) Urine pH 6.0 (5.0-8.0) Ur Specific [place] 1.025 (1.008-1.030) Urine Protein Negative (NEGATIVE) mg/dL Urine Glucose (UA) Negative (NEGATIVE) mg/dL Urine Ketones Negative (NEGATIVE) mg/dL Urine Occult Blood Negative (NEGATIVE) Urine Nitrite Negative (NEGATIVE) Urine Bilirubin Small H (NEGATIVE) Urine Urobilinogen 2.0 H (0.2-1.0) EU/dL Ur Leukocyte Esterase Trace H (NEGATIVE) Urine RBC 0-5 (0-5) Urine WBC 5-10 H (0-5) Ur Epithelial Cells Many Amorphous Sediment Few Urine Bacteria Rare Urine Mucus Not seen Urine Other Meds: Medications Discontinued Medications Generic Name Dose Route Start Last Admin Trade Name Freq PRN Reason Stop Dose Admin Albuterol 2.5 mg 07/11/19 22:51 07/11/19 22:55 Proventil Neb Soln NEB 07/11/19 22:52 2.5 mg ONETIME ONE Administration Aspirin 324 mg 07/11/19 21:37 07/11/19 22:00 Aspirin PO 07/11/19 21:38 324 mg ONETIME ONE Administration - Re-Assessments/Exams Free Text/Narrative Re-Assessment/Exam: 07/11/19 23:03 pt had a normal trop. Her Ekg looked the same as from March 2019 when she was seen. She has a borderline creatnine and really does need to push fluids. Departure - Departure Time of Disposition: 23:01 Disposition: Home, Self-Care 01 Condition: Fair Clinical Impression: Bronchitis Referrals: Azam Rosa Sr, MD [Primary Care Provider] - Forms: ED Department Discharge Care Plan Goals: cool mist humidifier, use nebulizer at home tid, Pt has augmentin at home and will use bid for 10 days, push fluids. rtc if chest pain should get alot worse. - My Orders Last 24 Hours: My Active Orders 07/11/19 21:38 EKG Documentation Completion [RC] ASDIRECTED EKG 12 Lead [EK] Routine 07/11/19 22:51 RT Aerosol Therapy [RC] ASDIRECTED - Assessment/Plan Last 24 Hours: My Active Orders 07/11/19 21:38 EKG Documentation Completion [RC] ASDIRECTED EKG 12 Lead [EK] Routine 07/11/19 22:51 RT Aerosol Therapy [RC] ASDIRECTED
== END 2019-07-11 23:08 | disposition home or self-care (01) ==
LOC: JP.ED 21:24
DX: J40 Bronchitis, not specified as acute or chronic (principal); I10 Essential (primary) hypertension; J44.9 Chronic obstructive pulmonary disease, unspecified; K21.9 Gastro-esophageal reflux disease without esophagitis; F32.9 Major depressive disorder, single episode, unspecified; E03.9 Hypothyroidism, unspecified; F17.210 Nicotine dependence, cigarettes, uncomplicated; Z79.899 Other long term (current) drug therapy; Z88.0 Allergy status to penicillin
CPT/HCPCS: 36415; 71045; 80053; 81001; 84484; 85025; 93005; 94640; 99285; A9270

== ENCOUNTER 2019-11-14 06:02 | Day surgery (SDC) | payer MEDICARE, OTHER ==
[2019-11-14] MEDS: Nozin Nasal Sanitizer NASBOTH ONE (07:10)
[2019-11-14] MEDS: Lactated Ringers 1,000 ML IV SCH (07:11)
[2019-11-14] MEDS ORDERED: Midazolam 1 MG/ML 2 ML SDV ONE (07:15)
[2019-11-14] MEDS ORDERED: Propofol 200 MG/20 ML SDV ONE ×2 (07:15→07:48)
[2019-11-14] MEDS ORDERED: fentaNYL 100 MCG/2 ML SDV ONE (07:15)
[2019-11-14] MEDS ORDERED: Bupivacaine 0.5% 30 ML SDV ONE ×2 (07:17→07:18)
[2019-11-14] MEDS ORDERED: Neostigmine Methylsulfate 1 MG/ML 5 ML Syringe ONE (07:48)
[2019-11-14] MEDS ORDERED: Glycopyrrolate 0.2 MG/ML 5 ML MDV ONE (07:48)
[2019-11-14] MEDS ORDERED: Ondansetron 4 MG/2 ML SDV ONE (07:48)
[2019-11-14] MEDS ORDERED: Dexamethasone 4 MG/ML SDV ONE (07:48)
[2019-11-14] MEDS ORDERED: Rocuronium 50 MG/5 ML Vial ONE (07:48)
[2019-11-14] MEDS ORDERED: fentaNYL 250 MCG/5 ML SDV ONE (07:59)
[2019-11-14] MEDS: ceFAZolin 2 GM in Premix Bag 1 BAG IV ONE (09:52)
[2019-11-14] MEDS: Bupivacaine 0.5% 50 ML MDV ONE (10:02)
[2019-11-14] MEDS: Acetaminophen/oxyCODONE 325-5 MG Tab PO ONE (10:23)
[2019-11-14 10:33] VITALS: BP 173/72; PULSE 66
--- NOTE | 2019-11-14 20:29 | OR ---
DATE OF PROCEDURE: 11/14/2019 SURGEON: Azam Mcbride MD PREOPERATIVE DIAGNOSIS: Degenerative labral tear, right shoulder. POSTOPERATIVE DIAGNOSES: 1. Degenerative labral tear, right shoulder. 2. Mild synovitis, right shoulder. PROCEDURE: Arthroscopy right shoulder with debridement of labrum and limited synovectomy. ANESTHESIA: General. INDICATIONS: Heavenly is a very pleasant 74-year-old female who underwent a right shoulder hemiarthroplasty approximately a year ago. She has had some persistent difficulty with shoulder pain and discomfort. This has gotten progressively worse over the past couple of months. She has failed conservative treatment with trials of anti-inflammatories, activity modification, and injections. Exam is most consistent with catching of degenerative labrum. A small cuff tear cannot be ruled out. She now presents for arthroscopic evaluation of the joint with debridement of labrum and evaluation, repair of cuff if necessary. Risks, benefits, and potential complications were discussed. DESCRIPTION OF PROCEDURE: After adequate anesthesia was obtained, the patient was placed in lateral decubitus position and secured in the beanbag positioner. Right shoulder and arm were then prepped and draped in a sterile fashion. 10 pounds of traction was placed in the shoulder traction unit. A standard posterior portal was established without difficulty. Inspection of the glenohumeral joint did reveal degenerative changes of the labrum with a flap on the anterior edge near the equator. Mild degenerative changes noted in the central portion of the glenoid without full-thickness cartilage loss. Biceps tendon was intact. Undersurface of the rotator showed some mild tendinosis without evidence of full-thickness or significant partial-thickness tear. Anterior portal was established and the flap of the anterior labrum was debrided. Degenerative fraying on the free edge of the labrum was also debrided more superiorly and inferiorly. A moderate amount of synovitis was present throughout the joint and this was debrided with a combination of the shaver and the ablation wand. Undersurface of the rotator was further evaluated and again, no evidence of full- thickness tear was noted. A spinal needle was placed through the area of mild tendinosis and this was marked with a PDS suture for evaluation on the bursal side. The scope was then switched from the posterior portal to the anterior portal and her posterior labrum was evaluated. This showed some degenerative changes as well without significant flap or instability. Light marginal debridement was performed. Scope was then withdrawn. Scope was then placed into the subacromial space. Lateral portal was established. Minimal bursitis was present. A small ridge was noted along the anterior edge of the supraspinatus. The marked portion of the cuff was readily identified and no evidence of full-thickness tear. This was probed and found to be intact with no evidence of any significant partial- thickness tear. The level of the acromion was evaluated and not found to be significantly overhanging or impinging. A small ridge anterolateral to the attachment of the soft tissue was debrided with the ablation wand. The arm was taken through internal and external rotation. No other abnormalities were identified in the cuff. The scope was withdrawn and placed in the lateral portal and the level of the acromion was again evaluated and found to be adequate without evidence of impingement and the cuff was evaluated with no evidence of tear or significant tendinopathy. The scope was then withdrawn. Port sites were then closed with 3-0 Monocryl and Steri-Strips were applied. Port sites, subacromial space, and joint were then injected with a total of 30 mL of 0.25% Marcaine. Sterile dressing was then applied. The patient tolerated the procedure well. There were no complications. Taken from the operating room in stable condition. Azam Mcbride MD /[id number]
== END 2019-11-14 11:10 | disposition home or self-care (01) ==
LOC: JP.SDS 06:02
PROVIDERS: ATTEND Specialist
DX: S43.431A Superior glenoid labrum lesion of right shoulder, initial encounter (principal); M65.811 Other synovitis and tenosynovitis, right shoulder; M75.51 Bursitis of right shoulder; M75.21 Bicipital tendinitis, right shoulder; I10 Essential (primary) hypertension; J44.9 Chronic obstructive pulmonary disease, unspecified; M54.5 Low back pain; E03.9 Hypothyroidism, unspecified; K21.9 Gastro-esophageal reflux disease without esophagitis; F41.9 Anxiety disorder, unspecified; F32.9 Major depressive disorder, single episode, unspecified; F17.210 Nicotine dependence, cigarettes, uncomplicated; Z88.0 Allergy status to penicillin; Z79.899 Other long term (current) drug therapy; X58.XXXA Exposure to other specified factors, initial encounter
CPT/HCPCS: 29822; 36415; 80048; 85027; A9270; C1713; J0690; J1100; J2405; J2704; J2710; J3010; J3490; J7120; J2250

== ENCOUNTER 2020-01-12 20:39 | Emergency (ER) | payer MEDICARE, OTHER ==
[2020-01-12 21:15] VITALS: BP 138/85; PULSE 92
--- NOTE | 2020-01-12 21:41 | EDM.PDOC ---
ED HPI GENERAL MEDICAL PROBLEM - General Chief Complaint: Upper Extremity Injury/Pain Stated Complaint: RT SHOULDER PAIN Time Seen by Provider: 01/12/20 21:20 Source of Information: Reports: Patient History Limitations: Reports: No Limitations - History of Present Illness INITIAL COMMENTS - FREE TEXT/NARRATIVE: 74-year-old female with chronic right shoulder pain, has had an increase in pain over the past week. No new trauma or injury. No limited range of motion, most of her pain is at night when she is trying to sleep. Onset: Gradual Duration: Week(s): (Pain has been ongoing for weeks but worse over the past 3 nights) Right Shoulder Pain Score (Numeric/FACES): 8 - Related Data Allergies Allergy/AdvReac Type Severity Reaction Status Date / Time Penicillins Allergy Intermediate Mouth Sores Verified 01/12/20 21:15 Home Meds: Home Meds Levothyroxine [Synthroid] 88 mcg PO QAM 10/03/15 [History] ALPRAZolam [Xanax] 0.5 mg PO BEDTIME PRN 10/08/15 [History] Escitalopram [Lexapro] 20 mg PO QAM 10/08/15 [History] traZODone HCl [Trazodone HCl] 100 mg PO BEDTIME PRN 10/08/15 [History] Nitroglycerin 1 tab PO ASDIRECTED PRN 10/24/15 [History] Esomeprazole [NexIUM] 40 mg PO DAILY 12/13/18 [History] Albuterol [Proventil Neb Soln] 3 ml NEB Q4H PRN 11/08/19 [History] Lidocaine 5% [Lidoderm 5%] 1 patch TOP BID PRN 11/08/19 [History] Linaclotide [Linzess] 290 mcg PO DAILY 11/08/19 [History] NIFEdipine [Adalat cc] 60 mg PO DAILY 11/08/19 [History] Naproxen Sodium [Anaprox DS] 550 mg PO BID 11/08/19 [History] SUMAtriptan [Imitrex] 50 mg PO DAILY PRN 11/08/19 [History] Zafirlukast [Accolate] 20 mg PO BID 11/08/19 [History] cloNIDine [Catapres] 0.1 mg PO DAILY PRN 11/08/19 [History] Hydrocodone/Acetaminophen [[place] 5-325 Tablet] 2 each PO Q8HR PRN 7 Days #30 tablet 01/10/20 [Rx] Past Medical History HEENT History: Reports: Cataract Cardiovascular History: Reports: Arrhythmia, Hypertension, Other (See Below) Other Cardiovascular History: SVT Respiratory History: Reports: COPD, Pneumonia, Recurrent, SOB, Other (See Below) Other Respiratory History: Usually uses O2 at night 2LPM. 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 failed injection Neurological History: Reports: Migraines Psychiatric History: Reports: Anxiety, Depression Endocrine/Metabolic History: Reports: Hypothyroidism, Other (See Below) Other Endocrine/Metabolic History: 12/13/2018: reports 20# weight loss over past 6 wks Hematologic History: Reports: Anemia, B12 Deficiency, Blood Transfusion(s) Immunologic History: Reports: None Oncologic (Cancer) History: Reports: None Dermatologic History: Reports: None - Infectious Disease History Infectious Disease History: Reports: Chicken Pox, Measles - Past Surgical History HEENT Surgical History: Reports: Cataract Surgery GI Surgical History: Reports: Cholecystectomy, Colonoscopy, EGD Female Surgical History: Reports: Breast Biopsy, Hysterectomy, Salpingo- Oophorectomy Endocrine Surgical History: Reports: Thyroidectomy Other Musculoskeletal Surgeries/Procedures:: neuroma removed. R TSA 12/13/2018 due to R shoulder pain/OA. right shoulder scope 11/12/19 Oncologic Surgical History: Reports: Biopsy of Breast Social & Family History - Family History Family Medical History: Noncontributory - Tobacco Use Smoking Status *Q: Former Smoker Used Tobacco, but Quit: Yes Month/Year Tobacco Last Used: 2018 - Caffeine Use Caffeine Use: Reports: Soda Other Caffeine Use: Pepsi Caffeine Use Comment: pepsi - Recreational Drug Use Recreational Drug Use: No Review of Systems - Review of Systems Review Of Systems: See Below Constitutional: Denies: Fever Respiratory: Denies: Shortness of Breath Cardiovascular: Denies: Chest Pain Musculoskeletal: Reports: Back Pain (Back pain is chronic) Neurological: Reports: Paresthesia (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 Palpation tenderness is negative on the anterior and posterior shoulder, however just below the humeral head laterally over the deltoid there is soreness with palpation. She has good active range of motion.) Course - Vital Signs Last Recorded V/S: Last Vital Signs Temp 96.3 F L 01/12/20 21:20 Pulse 92 01/12/20 21:20 Resp 16 01/12/20 21:20 BP 138/85 01/12/20 21:20 Pulse Ox 92 L 01/12/20 21:20 - Orders/Labs/Meds Orders: Active Orders 24 hr Category Date Time Status Acetaminophen/HYDROcodone [[place] 325-5 MG] Med 01/12/20 22:43 Once 1 tab PO ONETIME ONE Medication Orders Hydrocodone Bitart/Acetaminophen ([place] 325-5 Mg) 1 tab PO ONETIME ONE Stop: 01/12/20 22:44 Meds: Medications Generic Name Dose Route Start Last Admin Trade Name Freq PRN Reason Stop Dose Admin Hydrocodone Bitart/Acetaminophen 1 tab 01/12/20 22:43 [place] 325-5 Mg PO 01/12/20 22:44 ONETIME ONE - Re-Assessments/Exams Free Text/Narrative Re-Assessment/Exam: 01/12/20 21:39 I strongly encouraged the patient to recheck with Dr. Mcbride although she seems angry and wants another opinion. I think she should continue seeing him for continuity of care. I gave her 10 hydrocodone to use along with ibuprofen for extra pain control, and encouraged her to recheck with Dr. Mcbride next week. Departure - Departure Time of Disposition: 20:10 Disposition: Home, Self-Care 01 Clinical Impression: Right shoulder pain Qualifiers: Chronicity: chronic Qualified Code(s): M25.511 - Pain in right shoulder - Discharge Information Instructions: Shoulder Pain, [id number] Referrals: Azam Rosa Sr, MD [Primary Care Provider] - Forms: ED Department Discharge Care Plan Goals: Try 1 ibuprofen and 1 hydrocodone at bedtime for pain control, and increase activity as tolerated. I would recommend calling Dr. Mcbride's office this week to schedule a recheck. Sepsis Event Note - Evaluation Sepsis Screening Result: No Definite Risk - Focused Exam Vital Signs: Vital Signs Temp Pulse Resp BP Pulse Ox 01/12/20 21:20 96.3 F L 92 16 138/85 92 L 01/12/20 21:13 96.3 F L 92 16 138/85 92 L Date Exam was Performed: 01/12/20 Time Exam was Performed: 22:43 - My Orders Last 24 Hours: My Active Orders 01/12/20 22:43 Acetaminophen/HYDROcodone [[place] 325-5 MG] 1 tab PO ONETIME ONE - Assessment/Plan Last 24 Hours: My Active Orders 01/12/20 22:43 Acetaminophen/HYDROcodone [[place] 325-5 MG] 1 tab PO ONETIME ONE
[2020-01-12] MEDS ORDERED: Acetaminophen/HYDROcodone 325-5 MG Tab PO ONE (22:43)
== END 2020-01-12 23:03 | disposition home or self-care (01) ==
LOC: JP.ED 20:39
DX: G89.29 Other chronic pain (principal); M25.511 Pain in right shoulder; I10 Essential (primary) hypertension; J44.9 Chronic obstructive pulmonary disease, unspecified; F41.9 Anxiety disorder, unspecified; F32.9 Major depressive disorder, single episode, unspecified; E03.9 Hypothyroidism, unspecified; K21.9 Gastro-esophageal reflux disease without esophagitis; G43.909 Migraine, unspecified, not intractable, without status migrainosus; Z88.0 Allergy status to penicillin; Z79.899 Other long term (current) drug therapy; Z87.891 Personal history of nicotine dependence
CPT/HCPCS: 99283; A9270

== ENCOUNTER 2020-01-27 19:58 | Emergency (ER) | payer MEDICARE, OTHER ==
[2020-01-27] MEDS ORDERED: Aspirin 81 MG Tab.Chew PO ONE (20:44)
[2020-01-27] MEDS ORDERED: Sodium Chloride 0.9% 10 ML Syringe FLUSH PRN (20:46)
--- NOTE | 2020-01-27 20:50 | EDM.PDOC ---
ED HPI GENERAL MEDICAL PROBLEM - General Chief Complaint: General Stated Complaint: NAUSEA,WEAK Time Seen by Provider: 01/27/20 20:41 Source of Information: Reports: Patient, RN Notes Reviewed History Limitations: Reports: No Limitations - History of Present Illness INITIAL COMMENTS - FREE TEXT/NARRATIVE: 74-year-old female presents emergency department a complaint of chest pressure weakness nausea no vomiting increased shortness of breath no diaphoresis she states she does not have any cardiac history but does have an extensive tobacco use history and COPD. She states the symptoms started a couple hours prior - Related Data Allergies Allergy/AdvReac Type Severity Reaction Status Date / Time Penicillins Allergy Intermediate Mouth Sores Verified 01/27/20 20:20 Home Meds: Home Meds ALPRAZolam [Xanax] 0.5 mg PO BEDTIME PRN 10/08/15 [History] Escitalopram [Lexapro] 20 mg PO QAM 10/08/15 [History] traZODone HCl [Trazodone HCl] 100 mg PO BEDTIME PRN 10/08/15 [History] Lidocaine 5% [Lidoderm 5%] 1 patch TOP BID PRN 11/08/19 [History] cloNIDine [Catapres] 0.1 mg PO DAILY PRN 11/08/19 [History] Hydrocodone/Acetaminophen [Arbon 5-325 Tablet] 2 each PO Q8HR PRN 7 Days #30 tablet 01/10/20 [Rx] oxyCODONE HCl/Acetaminophen [Percocet 5-325 mg Tablet] 1 each PO Q6HR PRN #28 tablet 01/25/20 [Rx] Azithromycin 250 mg PO DAILY #4 tablet 01/27/20 [Rx] Past Medical History HEENT History: Reports: Cataract, Impaired Vision Cardiovascular History: Reports: Arrhythmia, Hypertension, Other (See Below) Other Cardiovascular History: SVT Respiratory History: Reports: COPD, Pneumonia, Recurrent, SOB, Other (See Below) Other Respiratory History: Usually uses O2 at night 2LPM. 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 failed injection Neurological History: Reports: Migraines Psychiatric History: Reports: Anxiety, Depression Endocrine/Metabolic History: Reports: Hypothyroidism, Other (See Below) Other Endocrine/Metabolic History: 12/13/2018: reports 20# weight loss over past 6 wks Hematologic History: Reports: Anemia, B12 Deficiency, Blood Transfusion(s) Immunologic History: Reports: None Oncologic (Cancer) History: Reports: None Dermatologic History: Reports: None - Infectious Disease History Infectious Disease History: Reports: Chicken Pox, Mumps - Past Surgical History HEENT Surgical History: Reports: Cataract Surgery, Tonsillectomy GI Surgical History: Reports: Cholecystectomy, Colonoscopy, EGD Female Surgical History: Reports: Breast Biopsy, Hysterectomy, Salpingo- Oophorectomy Endocrine Surgical History: Reports: Parathyroidectomy, Thyroidectomy Other Musculoskeletal Surgeries/Procedures:: neuroma removed. R TSA 12/13/2018 due to R shoulder pain/OA. right shoulder scope 11/12/19 Oncologic Surgical History: Reports: Biopsy of Breast Social & Family History - Family History Family Medical History: Noncontributory - Tobacco Use Smoking Status *Q: Current Every Day Smoker Years of Tobacco use: 50 Packs/Tins Daily: 0.2 - Caffeine Use Caffeine Use: Reports: Soda Other Caffeine Use: Pepsi Caffeine Use Comment: pepsi - Recreational Drug Use Recreational Drug Use: No ED ROS GENERAL - Review of Systems Review Of Systems: See Below Constitutional: Reports: Weakness, Fatigue HEENT: Reports: No Symptoms Respiratory: Reports: Shortness of Breath Cardiovascular: Reports: Chest Pain, Dyspnea on Exertion GI/Abdominal: Reports: No Symptoms : Reports: No Symptoms ED EXAM, GENERAL - Physical Exam Exam: See Below Exam Limited By: No Limitations General Appearance: Alert, WD/WN, No Apparent Distress Respiratory/Chest: No Respiratory Distress, Decreased Breath Sounds. No: Crackles, Rales, Rhonchi, Wheezing Cardiovascular: Regular Rate, Rhythm, No Murmur GI/Abdominal: Soft, Non-Tender Course - Vital Signs Last Recorded V/S: Last Vital Signs Temp 97.2 F 01/27/20 20:23 Pulse 65 01/27/20 21:18 Resp 11 L 01/27/20 21:18 BP 161/88 H 01/27/20 21:18 Pulse Ox 96 01/27/20 21:18 - Orders/Labs/Meds Orders: Active Orders 24 hr Category Date Time Status Cardiac Monitoring [RC] .As Directed Care 01/27/20 20:44 Active EKG Documentation Completion [RC] ASDIRECTED Care 01/27/20 20:45 Active Peripheral IV Care [RC] . DIRECTED Care 01/27/20 20:46 Active Nitroglycerin [Nitrostat] Med 01/27/20 20:44 Active 0.4 mg SL Q5M PRN Sodium Chloride 0.9% [Saline Flush] Med 01/27/20 20:46 Active 10 ml FLUSH ASDIRECTED PRN Peripheral IV Insertion Adult [OM.PC] Urgent Oth 01/27/20 20:46 Ordered EKG 12 Lead [EK] Stat Ther 01/27/20 20:45 Ordered Medication Orders Nitroglycerin (Nitrostat) 0.4 mg SL Q5M PRN PRN Reason: Chest Pain Stop: 01/28/20 20:45 Last Admin: 01/27/20 21:08 Dose: 0.4 mg Admin: 01/27/20 21:03 Dose: 0.4 mg Admin: 01/27/20 20:56 Dose: 0.4 mg Sodium Chloride (Saline Flush) 10 ml FLUSH ASDIRECTED PRN PRN Reason: Keep Vein Open Last Admin: 01/27/20 20:58 Dose: 10 ml Labs: Laboratory Tests 01/27/20 01/27/20 01/27/20 Range/Units 20:44 20:58 20:58 WBC 5.3 (4.5-11.0) K/uL RBC 3.48 (3.30-5.50) M/uL Hgb 11.2 L (12.0-15.0) g/dL Hct 33.8 L (36.0-48.0) % MCV 97 (80-98) fL MCH 32 H (27-31) pg MCHC 33 (32-36) % Plt Count 171 (150-400) K/uL Neut % (Auto) 46 (36-66) % Lymph % (Auto) 44 (24-44) % Millard % (Auto) 9 H (2-6) % Eos % (Auto) 0 L (2-4) % Baso % (Auto) 1 (0-1) % PT (9.5-12.0) sec INR (0.80-1.20) D-Dimer, Quantitative < 100 (0.0-400.0) ng/mL Sodium 141 (140-148) mmol/L Potassium 3.4 L (3.6-5.2) mmol/L Chloride 102 (100-108) mmol/L Carbon Dioxide 31 (21-32) mmol/L Anion Gap 11.4 (5.0-14.0) mmol/L BUN 8 (7-18) mg/dL Creatinine 1.2 H (0.6-1.0) mg/dL Est Cr Clr Drug Dosing 36.20 mL/min Estimated GFR (MDRD) 44 L (>60) Glucose 98 (74-106) mg/dL Calcium 8.4 L (8.5-10.1) mg/dL Total Bilirubin 0.6 D (0.2-1.0) mg/dL AST 21 (15-37) U/L ALT 17 (12-78) U/L Alkaline Phosphatase 72 (46-116) U/L Troponin I < 0.017 (0.000-0.056) ng/mL Total Protein 6.3 L (6.4-8.2) g/dL Albumin 3.6 (3.4-5.0) g/dL Globulin 2.7 (2.3-3.5) g/dL Albumin/Globulin Ratio 1.3 (1.2-2.2) / Range/Units 20:58 WBC (4.5-11.0) K/uL RBC (3.30-5.50) M/uL Hgb (12.0-15.0) g/dL Hct (36.0-48.0) % MCV (80-98) fL MCH (27-31) pg MCHC (32-36) % Plt Count (150-400) K/uL Neut % (Auto) (36-66) % Lymph % (Auto) (24-44) % Millard % (Auto) (2-6) % Eos % (Auto) (2-4) % Baso % (Auto) (0-1) % PT 12.3 H (9.5-12.0) sec INR 1.15 (0.80-1.20) D-Dimer, Quantitative (0.0-400.0) ng/mL Sodium (140-148) mmol/L Potassium (3.6-5.2) mmol/L Chloride (100-108) mmol/L Carbon Dioxide (21-32) mmol/L Anion Gap (5.0-14.0) mmol/L BUN (7-18) mg/dL Creatinine (0.6-1.0) mg/dL Est Cr Clr Drug Dosing mL/min Estimated GFR (MDRD) (>60) Glucose (74-106) mg/dL Calcium (8.5-10.1) mg/dL Total Bilirubin (0.2-1.0) mg/dL AST (15-37) U/L ALT (12-78) U/L Alkaline Phosphatase (46-116) U/L Troponin I (0.000-0.056) ng/mL Total Protein (6.4-8.2) g/dL Albumin (3.4-5.0) g/dL Globulin (2.3-3.5) g/dL Albumin/Globulin Ratio (1.2-2.2) Meds: Medications Generic Name Dose Route Start Last Admin Trade Name Freq PRN Reason Stop Dose Admin Nitroglycerin 0.4 mg 01/27/20 20:44 01/27/20 21:08 Nitrostat SL 01/28/20 20:45 0.4 mg Q5M PRN Administration Chest Pain Sodium Chloride 10 ml 01/27/20 20:46 01/27/20 20:58 Saline Flush FLUSH 10 ml ASDIRECTED PRN Administration Keep Vein Open Discontinued Medications Generic Name Dose Route Start Last Admin Trade Name Freq PRN Reason Stop Dose Admin Aspirin 324 mg 01/27/20 20:44 01/27/20 20:56 Aspirin PO 01/27/20 20:45 324 mg ONETIME ONE Administration Ketorolac Tromethamine 15 mg 01/27/20 21:24 01/27/20 21:29 Toradol IVPUSH 01/27/20 21:25 15 mg ONETIME ONE Administration Departure - Departure Time of Disposition: 21:47 Disposition: Home, Self-Care 01 Condition: Fair Clinical Impression: Bronchitis - Discharge Information Referrals: Azam Rosa Sr, MD [Primary Care Provider] - Forms: ED Department Discharge Additional Instructions: Take full course of antibiotics, please follow-up with your primary care in the next 2-3 days for reevaluation call return to the emergency department worsening of symptoms Sepsis Event Note - Evaluation Sepsis Screening Result: No Definite Risk - Focused Exam Vital Signs: Vital Signs Temp Pulse Resp BP BP Pulse Ox 01/27/20 21:18 65 11 L 161/88 H 96 01/27/20 21:10 64 12 148/82 H 99 01/27/20 21:08 148/82 H 01/27/20 21:05 60 11 L 157/79 H 98 01/27/20 21:03 157/79 H 01/27/20 20:56 190/80 H 01/27/20 20:23 97.2 F 67 16 197/82 H 95 01/27/20 20:19 97.2 F 67 16 197/82 H 95 Date Exam was Performed: 01/27/20 Time Exam was Performed: 21:43 - My Orders Last 24 Hours: My Active Orders 01/27/20 20:44 Cardiac Monitoring [RC] .As Directed Nitroglycerin [Nitrostat] 0.4 mg SL Q5M PRN 01/27/20 20:45 EKG Documentation Completion [RC] ASDIRECTED EKG 12 Lead [EK] Stat 01/27/20 20:46 Peripheral IV Care [RC] . DIRECTED Sodium Chloride 0.9% [Saline Flush] 10 ml FLUSH ASDIRECTED PRN Peripheral IV Insertion Adult [OM.PC] Urgent - Assessment/Plan Last 24 Hours: My Active Orders 01/27/20 20:44 Cardiac Monitoring [RC] .As Directed Nitroglycerin [Nitrostat] 0.4 mg SL Q5M PRN 01/27/20 20:45 EKG Documentation Completion [RC] ASDIRECTED EKG 12 Lead [EK] Stat 01/27/20 20:46 Peripheral IV Care [RC] . DIRECTED Sodium Chloride 0.9% [Saline Flush] 10 ml FLUSH ASDIRECTED PRN Peripheral IV Insertion Adult [OM.PC] Urgent Plan: Assessment Acuity = acute Site and laterality = COPD bronchitis Etiology = probable bacterial cause Manifestations = increasing shortness of breath, chest discomfort Location of injury = Home Lab values = CBC unremarkable d-dimer was negative troponin is negative creatinine elevated 1.2 consistent chronic renal failure stage G3 B chest x-ray shows new infiltrate in the fissure right side versus atelectasis, EKG demonstrates sinus rhythm no ST elevations or depressions Plan Elected to treat empirically azithromycin 5-day course [facility] she will follow-up with her primary care in the next 2 to 3 days for reevaluation This note was dictated using [employer] voice recognition software please call with any questions on syntax or grammar.
[2020-01-27] MEDS: Nitroglycerin 0.4 MG Tab.SL SL PRN ×3 (20:56→21:08)
[2020-01-27 21:19] VITALS: BP 161/88; PULSE 65
[2020-01-27] MEDS ORDERED: Ketorolac 30 MG/ML SDV IVPUSH ONE (21:24)
--- NOTE | 2020-01-27 21:39 | CRLCR ---
INDICATION: Chest pain. TECHNIQUE: Chest 1 view COMPARISON: Chest radiograph 07/11/2019. FINDINGS: There is a new small patchy opacity in the right lower lung which may represent atelectasis or infiltrate. No pleural effusion or pneumothorax. Slight linear atelectasis left midlung. Pulmonary hyperinflation with flattening of the hemidiaphragms. Normal heart size and pulmonary vascularity. Calcified tortuous aorta. Right shoulder arthroplasty. IMPRESSION: New small patchy opacity in the right lower lung may represent atelectasis or infiltrate. Dictated by Karen Pastor MD @ Jan 27 2020 9:36PM Signed by Dr. Karen Pastor @ Jan 27 2020 9:38PM
[2020-01-27] MEDS ORDERED: Azithromycin 250 MG Tab PO STA (21:44)
== END 2020-01-27 22:01 | disposition home or self-care (01) ==
LOC: JP.ED 19:58
DX: J40 Bronchitis, not specified as acute or chronic (principal); I10 Essential (primary) hypertension; J44.9 Chronic obstructive pulmonary disease, unspecified; F41.9 Anxiety disorder, unspecified; F32.9 Major depressive disorder, single episode, unspecified; F17.210 Nicotine dependence, cigarettes, uncomplicated; Z88.0 Allergy status to penicillin; Z79.899 Other long term (current) drug therapy
CPT/HCPCS: 36415; 71045; 80053; 84484; 85025; 85379; 85610; 93005; 96374; 99284; 99285; A9270; J1885; 93010

== ENCOUNTER 2020-02-25 12:46 | Emergency (ER) | payer MEDICARE, OTHER ==
[2020-02-25 13:20] VITALS: BP 190/83; PULSE 67
--- NOTE | 2020-02-25 13:31 | EDM.PDOC ---
ED HPI GENERAL MEDICAL PROBLEM - General Chief Complaint: Respiratory Problem Stated Complaint: BREATHING ISSUES Time Seen by Provider: 02/25/20 13:11 Source of Information: Reports: Patient History Limitations: Reports: No Limitations - History of Present Illness INITIAL COMMENTS - FREE TEXT/NARRATIVE: 74-year-old female in to talk about several complaints including intermittent shortness of breath, anxiety, chronic right shoulder pain, chronic lower back pain with leg numbness. She is getting frustrated because none of her issues seem to be improving, however she is not taking the medications prescribed to her including the Lexapro and gabapentin. She has had follow-up appointments with orthopedics including an injection in her right shoulder. She has had an MRI of her neck and back. She has a neurology consultation regarding her low back and possible surgery coming up in the near future. Her chief complaint today is her intermittent shortness of breath. She continues to smoke. She has had no fever or chills, denies cough. Onset: Unknown/Unsure Duration: Waxing/Waning Worsens with: Reports: Other (Shortness of breath seems to be worse when anxious.) Right Shoulder Pain Score (Numeric/FACES): 8 - Related Data Allergies Allergy/AdvReac Type Severity Reaction Status Date / Time Penicillins Allergy Intermediate Mouth Sores Verified 02/25/20 13:21 Home Meds: Home Meds ALPRAZolam [Xanax] 0.5 mg PO BEDTIME PRN 10/08/15 [History] Escitalopram [Lexapro] 20 mg PO QAM 10/08/15 [History] traZODone HCl [Trazodone HCl] 100 mg PO BEDTIME PRN 10/08/15 [History] Lidocaine 5% [Lidoderm 5%] 1 patch TOP BID PRN 11/08/19 [History] cloNIDine [Catapres] 0.1 mg PO ASDIRECTED 11/08/19 [History] oxyCODONE HCl/Acetaminophen [Percocet 5-325 mg Tablet] 1 - 2 each PO Q8HR PRN 7 Days #40 tablet 02/13/20 [Rx] Past Medical History HEENT History: Reports: Cataract Cardiovascular History: Reports: Arrhythmia, Hypertension, Other (See Below) Other Cardiovascular History: SVT Respiratory History: Reports: COPD, Pneumonia, Recurrent, SOB, Other (See Below) Other Respiratory History: Usually uses O2 at night 2LPM. 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 failed injection Neurological History: Reports: Migraines Psychiatric History: Reports: Anxiety, Depression Endocrine/Metabolic History: Reports: Hypothyroidism Other Endocrine/Metabolic History: 12/13/2018: reports 20# weight loss over past 6 wks Hematologic History: Reports: Anemia, B12 Deficiency, Blood Transfusion(s) Immunologic History: Reports: None Oncologic (Cancer) History: Reports: None Dermatologic History: Reports: None - Infectious Disease History Infectious Disease History: Reports: Chicken Pox, Mumps - Past Surgical History HEENT Surgical History: Reports: Cataract Surgery GI Surgical History: Reports: Cholecystectomy, Colonoscopy, EGD Female Surgical History: Reports: Breast Biopsy, Hysterectomy, Salpingo- Oophorectomy Endocrine Surgical History: Reports: Thyroidectomy Other Musculoskeletal Surgeries/Procedures:: neuroma removed. R TSA 12/13/2018 due to R shoulder pain/OA. right shoulder scope 11/12/19 Oncologic Surgical History: Reports: Biopsy of Breast Social & Family History - Family History Family Medical History: Noncontributory - Tobacco Use Smoking Status *Q: Current Some Day Smoker Years of Tobacco use: 50 Packs/Tins Daily: 0 - Caffeine Use Caffeine Use: Reports: Soda Other Caffeine Use: Pepsi Caffeine Use Comment: pepsi - Recreational Drug Use Recreational Drug Use: No ED ROS GENERAL - Review of Systems Review Of Systems: See Below Constitutional: Reports: Malaise. Denies: Fever, Chills HEENT: Reports: No Symptoms Respiratory: Reports: Shortness of Breath, Pleuritic Chest Pain. Denies: Cough Cardiovascular: Denies: Palpitations GI/Abdominal: Denies: Nausea, Vomiting : Reports: No Symptoms Skin: Denies: Rash Neurological: Reports: Other (Chronic lower extremity paresthesias and numbness) . Denies: Headache Psychiatric: Reports: Anxiety, Depression ED EXAM, GENERAL - Physical Exam Exam: See Below Exam Limited By: No Limitations General Appearance: Alert, No Apparent Distress, Other (Patient is tearful) Head: Atraumatic Respiratory/Chest: No Respiratory Distress, Lungs Clear, Other (Lungs are completely clear, no wheezes rales or rhonchi) Cardiovascular: Regular Rate, Rhythm Extremities: No: Pedal Edema Neurological: Alert, Oriented Psychiatric: Depressed Mood, Flat Affect, Tearful Skin Exam: Warm, Dry Course - Vital Signs Last Recorded V/S: Last Vital Signs Temp 97.2 F 02/25/20 13:21 Pulse 67 02/25/20 13:21 Resp 18 02/25/20 13:21 BP 190/83 H 02/25/20 13:21 Pulse Ox 97 02/25/20 13:21 - Re-Assessments/Exams Free Text/Narrative Re-Assessment/Exam: 02/25/20 13:51 Encouraged the patient to resume her regular medications especially Lexapro, Neurontin may be helpful as well. She is going to pursue [facility] Follow-up with orthopedics and neurosurgery as scheduled. Departure - Departure Time of Disposition: 14:52 Disposition: Home, Self-Care 01 Clinical Impression: Shortness of breath, Anxiety about health - Discharge Information Instructions: Living With Anxiety Referrals: Azam Rosa Sr, MD [Primary Care Provider] - Forms: ED Department Discharge Care Plan Goals: We strongly recommend that you take your Lexapro as prescribed, your gabapentin may be helpful as well. Recheck with your primary providers as scheduled. Sepsis Event Note (ED) - Evaluation Sepsis Screening Result: No Definite Risk - Focused Exam Vital Signs: Vital Signs Temp Pulse Resp BP Pulse Ox 02/25/20 13:21 97.2 F 67 18 190/83 H 97 02/25/20 13:17 97.2 F 67 18 190/83 H 97
== END 2020-02-25 13:45 | disposition home or self-care (01) ==
LOC: JP.ED 12:46
DX: F41.9 Anxiety disorder, unspecified (principal); R06.02 Shortness of breath; I10 Essential (primary) hypertension; M19.90 Unspecified osteoarthritis, unspecified site; F32.9 Major depressive disorder, single episode, unspecified; F17.210 Nicotine dependence, cigarettes, uncomplicated; Z79.899 Other long term (current) drug therapy; Z88.0 Allergy status to penicillin
CPT/HCPCS: 99284

== ENCOUNTER 2020-04-21 22:30 | Emergency (ER) | payer MEDICARE, OTHER ==
[2020-04-21 23:01] VITALS: BP 186/74; PULSE 60
[2020-04-21] MEDS ORDERED: Acetaminophen/HYDROcodone 325-5 MG Tab PO ONE (23:35)
--- NOTE | 2020-04-22 00:02 | EDM.PDOC ---
ED HPI GENERAL MEDICAL PROBLEM - General Chief Complaint: Upper Extremity Injury/Pain Stated Complaint: SHOULDER PAIN/SHOULDER REPLACEMENT Time Seen by Provider: 04/21/20 23:45 Source of Information: Reports: Patient, Old Records History Limitations: Reports: No Limitations - History of Present Illness Onset: Today, Gradual Duration: Constant Location: Reports: Upper Extremity, Right (Right shoulder) Quality: Reports: Ache Severity: Moderate Improves with: Reports: None Worsens with: Reports: Movement Context: Reports: Activity Associated Symptoms: Reports: No Other Symptoms Right Shoulder Pain Score (Numeric/FACES): 9 - Related Data Allergies Allergy/AdvReac Type Severity Reaction Status Date / Time Penicillins Allergy Intermediate Mouth Sores Verified 04/21/20 23:07 Home Meds: Home Meds ALPRAZolam [Xanax] 0.5 mg PO BEDTIME PRN 10/08/15 [History] Escitalopram [Lexapro] 20 mg PO QAM 10/08/15 [History] traZODone HCl [Trazodone HCl] 100 mg PO BEDTIME PRN 10/08/15 [History] Lidocaine 5% [Lidoderm 5%] 1 patch TOP BID PRN 11/08/19 [History] cloNIDine [Catapres] 0.1 mg PO ASDIRECTED 11/08/19 [History] *Levothyroxine 0 mg PO DAILY 04/21/20 [History] Gabapentin [Neurontin] 100 mg PO BID 04/21/20 [History] Past Medical History HEENT History: Reports: Cataract Cardiovascular History: Reports: Arrhythmia, Hypertension, Other (See Below) Other Cardiovascular History: SVT Respiratory History: Reports: COPD, Pneumonia, Recurrent, SOB, Other (See Below) Other Respiratory History: Usually uses O2 at night 2LPM. 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 failed injection Neurological History: Reports: Migraines Psychiatric History: Reports: Anxiety, Depression Endocrine/Metabolic History: Reports: Hypothyroidism Other Endocrine/Metabolic History: 12/13/2018: reports 20# weight loss over past 6 wks Hematologic History: Reports: Anemia, B12 Deficiency, Blood Transfusion(s) Immunologic History: Reports: None Oncologic (Cancer) History: Reports: None Dermatologic History: Reports: None - Infectious Disease History Infectious Disease History: Reports: Chicken Pox, Measles, Mumps - Past Surgical History HEENT Surgical History: Reports: Cataract Surgery GI Surgical History: Reports: Cholecystectomy, Colonoscopy, EGD Female Surgical History: Reports: Breast Biopsy, Hysterectomy, Salpingo- Oophorectomy Endocrine Surgical History: Reports: Thyroidectomy Musculoskeletal Surgical History: Reports: Other (See Below) Other Musculoskeletal Surgeries/Procedures:: neuroma removed. R TSA 12/13/2018 due to R shoulder pain/OA. right shoulder scope 11/12/19 Oncologic Surgical History: Reports: Biopsy of Breast Social & Family History - Family History Family Medical History: Noncontributory - Tobacco Use Smoking Status *Q: Current Every Day Smoker Years of Tobacco use: 50 Packs/Tins Daily: 0.2 - Caffeine Use Caffeine Use: Reports: Soda Other Caffeine Use: Pepsi Caffeine Use Comment: pepsi Review of Systems - Review of Systems Review Of Systems: Comprehensive ROS is negative, except as noted in HPI. Cardiovascular: Reports: Chest Pain (right chest pain) Musculoskeletal: Reports: Shoulder Pain (acute on chronic right sholder pain) ED EXAM, GENERAL - Physical Exam Exam: See Below Exam Limited By: No Limitations General Appearance: Alert, Mild Distress Eye Exam: Bilateral Eye: EOMI, PERRL Head: Atraumatic, Normocephalic Neck: Normal Inspection, Supple, Non-Tender Respiratory/Chest: No Respiratory Distress, Lungs Clear, Chest Non-Tender Cardiovascular: Normal Peripheral Pulses, Regular Rate, Rhythm Back Exam: Normal Inspection Extremities: Normal Inspection, Normal Range of Motion (right shoulder with full range of motion. Non tender examination.), Non-Tender, Normal Capillary Refill. No: Joint Swelling, Limited Range of Motion Neurological: Alert, Oriented, Normal Cognition, No Motor/Sensory Deficits Course - Vital Signs Last Recorded V/S: Last Vital Signs Temp 35.6 C L 04/21/20 23:14 Pulse 60 04/21/20 23:14 Resp 16 04/21/20 23:14 BP 186/74 H 04/21/20 23:14 Pulse Ox 95 04/21/20 23:14 - Orders/Labs/Meds Orders: Active Orders 24 hr Category Date Time Status Chest 2V [CR] Stat Exams 04/21/20 23:34 Stop Req C-REACTIVE PROTEIN [CHEM] Stat Lab 04/21/20 23:34 Stop Req CBC WITH AUTO DIFF [HEME] Stat Lab 04/21/20 23:34 Stop Req D-DIMER QUANTITATIVE [COAG] Stat Lab 04/21/20 23:34 Stop Req Meds: Medications Discontinued Medications Generic Name Dose Route Start Last Admin Trade Name Vitaly PRN Reason Stop Dose Admin Hydrocodone Bitart/Acetaminophen 1 tab 04/21/20 23:35 [place] 325-5 Mg PO 04/21/20 23:36 ONETIME ONE - Re-Assessments/Exams Free Text/Narrative Re-Assessment/Exam: 04/22/20 00:02 Patient does not understand why I ordered testing including CBC, D-dimer, or CRP despite having a normal shoulder exam and pain arising from her right chest. She is refusing everything except the pain medication stating that she simply overdid her socializing today. I did discuss with her that other things like pulmonary emboli, pneumonia or pleuritis could also present with shoulder pain. She would have none of it. Departure - Departure Time of Disposition: 00:05 Disposition: Home, Self-Care 01 Condition: Good Clinical Impression: Chronic right shoulder pain, Status post right shoulder hemiarthroplasty - Discharge Information *PRESCRIPTION DRUG MONITORING PROGRAM REVIEWED*: No *COPY OF PRESCRIPTION DRUG MONITORING REPORT IN PATIENT SOFIA: No Instructions: Shoulder Pain, Pain Without a Known Cause Referrals: Azam Rosa Sr, MD [Primary Care Provider] - Sepsis Event Note (ED) - Evaluation Sepsis Screening Result: No Definite Risk - Focused Exam Vital Signs: Vital Signs Temp Pulse Resp BP Pulse Ox 04/21/20 23:14 35.6 C L 60 16 186/74 H 95 04/21/20 22:56 35.6 C L 60 16 186/74 H 95 - My Orders Last 24 Hours: My Active Orders 04/21/20 23:34 Chest 2V [CR] Stat C-REACTIVE PROTEIN [CHEM] Stat CBC WITH AUTO DIFF [HEME] Stat D-DIMER QUANTITATIVE [COAG] Stat - Assessment/Plan Last 24 Hours: My Active Orders 04/21/20 23:34 Chest 2V [CR] Stat C-REACTIVE PROTEIN [CHEM] Stat CBC WITH AUTO DIFF [HEME] Stat D-DIMER QUANTITATIVE [COAG] Stat
== END 2020-04-22 00:13 | disposition home or self-care (01) ==
LOC: JP.ED 22:30
DX: M25.511 Pain in right shoulder (principal); G89.29 Other chronic pain; I10 Essential (primary) hypertension; J44.9 Chronic obstructive pulmonary disease, unspecified; F41.9 Anxiety disorder, unspecified; F17.210 Nicotine dependence, cigarettes, uncomplicated; F32.9 Major depressive disorder, single episode, unspecified; E03.9 Hypothyroidism, unspecified; Z96.611 Presence of right artificial shoulder joint; Z88.0 Allergy status to penicillin; Z79.899 Other long term (current) drug therapy
CPT/HCPCS: 99283; A9270

== ENCOUNTER 2020-10-02 21:49 | Emergency (ER) | payer MEDICARE, OTHER ==
[2020-10-02] MEDS ORDERED: Sodium Chloride 0.9% 10 ML Syringe FLUSH PRN (23:09)
[2020-10-02] MEDS ORDERED: Sodium Chloride 0.9% 1,000 ML IV SCH (23:15)
--- NOTE | 2020-10-02 23:15 | EDM.PDOC ---
ED HPI GENERAL MEDICAL PROBLEM - General Chief Complaint: Back Pain or Injury Stated Complaint: BACK PAIN Time Seen by Provider: 10/02/20 23:04 Source of Information: Reports: Patient, Old Records, RN Notes Reviewed History Limitations: Reports: No Limitations - History of Present Illness INITIAL COMMENTS - FREE TEXT/NARRATIVE: 75-year-old female presents emergency department a complaint of left shoulder pain and left back pain. She denies any trauma no nausea vomiting shortness of breath states the pain has increasingly gotten worse over the last 3 days. Does admit to weight loss over the last year or so used to weigh 165 pounds she is now down to 118. Admits to poor oral intake only 1 meal per day due to fatigue and not wanting to cook. Is still using tobacco products Middle Back Pain Score (Numeric/FACES): 8 - Related Data Allergies Allergy/AdvReac Type Severity Reaction Status Date / Time Penicillins Allergy Intermediate Mouth Sores Verified 10/02/20 22:42 Home Meds: Home Meds ALPRAZolam [Xanax] 0.5 mg PO BEDTIME PRN 10/08/15 [History] Escitalopram [Lexapro] 20 mg PO QAM 10/08/15 [History] traZODone HCl [Trazodone HCl] 100 mg PO BEDTIME PRN 10/08/15 [History] Lidocaine 5% [Lidoderm 5%] 1 patch TOP BID PRN 11/08/19 [History] cloNIDine [Catapres] 0.1 mg PO ASDIRECTED 11/08/19 [History] *Levothyroxine 0 mg PO DAILY 04/21/20 [History] Gabapentin [Neurontin] 100 mg PO BID 04/21/20 [History] Past Medical History HEENT History: Reports: Cataract Cardiovascular History: Reports: Arrhythmia, Hypertension, Other (See Below) Other Cardiovascular History: SVT Respiratory History: Reports: COPD, Pneumonia, Recurrent, SOB, Other (See Below) Other Respiratory History: Usually uses O2 at night 2LPM. Pneumonia: 11/24/2018 Gastrointestinal History: Reports: Cholelithiasis, Chronic Constipation, GERD CONVENIENCE [employer] TECH History: Reports: Musculoskeletal History: Reports: Back Pain, Chronic, Fracture, Osteoarthritis Other Musculoskeletal History: back pain right shoulder pain. failed injection Neurological History: Reports: Migraines Psychiatric History: Reports: Anxiety, Depression Endocrine/Metabolic History: Reports: Hypothyroidism Other Endocrine/Metabolic History: 12/13/2018: reports 20# weight loss over past 6 wks Hematologic History: Reports: Anemia, B12 Deficiency, Blood Transfusion(s) Immunologic History: Reports: None Oncologic (Cancer) History: Reports: None Dermatologic History: Reports: None - Infectious Disease History Infectious Disease History: Reports: Chicken Pox, Measles, Mumps - Past Surgical History Head Surgeries/Procedures: Reports: None HEENT Surgical History: Reports: Cataract Surgery Other HEENT Surgeries/Procedures: wears dentures Cardiovascular Surgical History: Reports: Cardiac Ablation GI Surgical History: Reports: Cholecystectomy, Colonoscopy, EGD Female Surgical History: Reports: Breast Biopsy, Hysterectomy, Salpingo- Oophorectomy Endocrine Surgical History: Reports: Thyroidectomy Neurological Surgical History: Reports: None Musculoskeletal Surgical History: Reports: Other (See Below) Other Musculoskeletal Surgeries/Procedures:: neuroma removed. R TSA 12/13/2018 due to R shoulder pain/OA. right shoulder scope 11/12/19 Oncologic Surgical History: Reports: Biopsy of Breast Social & Family History - Family History Family Medical History: No Pertinent Family History - Tobacco Use Tobacco Use Status *Q: Current Every Day Tobacco User Years of Tobacco use: 65 Packs/Tins Daily: 0.2 - Caffeine Use Caffeine Use: Reports: None Other Caffeine Use: Pepsi Caffeine Use Comment: pepsi - Recreational Drug Use Recreational Drug Use: No ED ROS GENERAL - Review of Systems Review Of Systems: See Below Constitutional: Reports: Weight Loss HEENT: Reports: No Symptoms Respiratory: Reports: No Symptoms Cardiovascular: Reports: No Symptoms GI/Abdominal: Reports: No Symptoms Musculoskeletal: Reports: Shoulder Pain, Back Pain Skin: Reports: No Symptoms ED EXAM, GENERAL - Physical Exam Exam: See Below Exam Limited By: No Limitations General Appearance: Alert, WD/WN, No Apparent Distress Respiratory/Chest: No Respiratory Distress, Lungs Clear, Normal Breath Sounds, No Accessory Muscle Use, Chest Non-Tender Cardiovascular: Regular Rate, Rhythm, No Murmur GI/Abdominal: Soft, Non-Tender Back Exam: Normal Inspection, Full Range of Motion. No: CVA Tenderness (R), CVA Tenderness (L), Paraspinal Tenderness, Vertebral Tenderness Course - Vital Signs Last Recorded V/S: Last Vital Signs Temp 95.9 F L 10/02/20 22:39 Pulse 49 L 10/03/20 01:55 Resp 10 L 10/03/20 01:55 BP 158/60 H 10/03/20 01:55 Pulse Ox 97 10/03/20 01:55 - Orders/Labs/Meds Orders: Active Orders 24 hr Category Date Time Status Peripheral IV Care [RC] . DIRECTED Care 10/02/20 23:09 Active Chest 2V [CR] Urgent Exams 10/03/20 00:01 Taken Sodium Chloride 0.9% [Normal Saline] 1,000 ml Med 10/02/20 23:15 Active IV ASDIRECTED Sodium Chloride 0.9% [Saline Flush] Med 10/02/20 23:09 Active 10 ml FLUSH ASDIRECTED PRN Peripheral IV Insertion Adult [OM.PC] Stat Oth 10/02/20 23:09 Ordered Medication Orders Sodium Chloride (Normal Saline) 1,000 mls @ 500 mls/hr IV ASDIRECTED ALEKSANDAR Last Admin: 10/02/20 23:21 Dose: 500 mls/hr Documented by: AVTAR Sodium Chloride (Saline Flush) 10 ml FLUSH ASDIRECTED PRN PRN Reason: Keep Vein Open Last Admin: 10/02/20 23:21 Dose: 10 ml Documented by: AVTAR Labs: Laboratory Tests 10/02/20 10/02/20 10/02/20 Range/Units 23:20 23:20 23:20 WBC 7.3 (4.5-11.0) K/uL RBC 3.63 (3.30-5.50) M/uL Hgb 11.3 L (12.0-15.0) g/dL Hct 34.5 L (36.0-48.0) % MCV 95 (80-98) fL MCH 31 (27-31) pg MCHC 33 (32-36) % Plt Count 164 (150-400) K/uL Neut % (Auto) 65 (36-66) % Lymph % (Auto) 29 (24-44) % Stanley % (Auto) 6 (2-6) % Eos % (Auto) 0 L (2-4) % Baso % (Auto) 1 (0-1) % Sodium 139 L (140-148) mmol/L Potassium 4.1 (3.6-5.2) mmol/L Chloride 103 (100-108) mmol/L Carbon Dioxide 28 (21-32) mmol/L Anion Gap 12.1 (5.0-14.0) mmol/L BUN 19 H D (7-18) mg/dL Creatinine 1.3 H (0.6-1.0) mg/dL Est Cr Clr Drug Dosing 30.04 mL/min Estimated GFR (MDRD) 40 L (>60) Glucose 91 (74-106) mg/dL Lactic Acid 0.8 (0.4-2.0) mmol/L Calcium 9.4 (8.5-10.1) mg/dL Total Bilirubin 0.5 (0.2-1.0) mg/dL AST 10 L (15-37) U/L ALT 11 L (12-78) U/L Alkaline Phosphatase 62 (46-116) U/L Troponin I < 0.017 (0.000-0.056) ng/mL Total Protein 6.2 L (6.4-8.2) g/dL Albumin 3.5 (3.4-5.0) g/dL Globulin 2.7 (2.3-3.5) g/dL Albumin/Globulin Ratio 1.3 (1.2-2.2) Lipase 121 (73-393) U/L Urine Color (YELLOW) Urine Appearance (CLEAR) Urine pH (5.0-8.0) Ur Specific [place] (1.008-1.030) Urine Protein (NEGATIVE) mg/dL Urine Glucose (UA) (NEGATIVE) mg/dL Urine Ketones (NEGATIVE) mg/dL Urine Occult Blood (NEGATIVE) Urine Nitrite (NEGATIVE) Urine Bilirubin (NEGATIVE) Urine Urobilinogen (0.2-1.0) EU/dL Ur Leukocyte Esterase (NEGATIVE) Urine RBC (0-5) Urine WBC (0-5) Ur Epithelial Cells Amorphous Sediment Urine Bacteria Urine Mucus 10/02/20 Range/Units 23:50 WBC (4.5-11.0) K/uL RBC (3.30-5.50) M/uL Hgb (12.0-15.0) g/dL Hct (36.0-48.0) % MCV (80-98) fL MCH (27-31) pg MCHC (32-36) % Plt Count (150-400) K/uL Neut % (Auto) (36-66) % Lymph % (Auto) (24-44) % Stanley % (Auto) (2-6) % Eos % (Auto) (2-4) % Baso % (Auto) (0-1) % Sodium (140-148) mmol/L Potassium (3.6-5.2) mmol/L Chloride (100-108) mmol/L Carbon Dioxide (21-32) mmol/L Anion Gap (5.0-14.0) mmol/L BUN (7-18) mg/dL Creatinine (0.6-1.0) mg/dL Est Cr Clr Drug Dosing mL/min Estimated GFR (MDRD) (>60) Glucose (74-106) mg/dL Lactic Acid (0.4-2.0) mmol/L Calcium (8.5-10.1) mg/dL Total Bilirubin (0.2-1.0) mg/dL AST (15-37) U/L ALT (12-78) U/L Alkaline Phosphatase (46-116) U/L Troponin I (0.000-0.056) ng/mL Total Protein (6.4-8.2) g/dL Albumin (3.4-5.0) g/dL Globulin (2.3-3.5) g/dL Albumin/Globulin Ratio (1.2-2.2) Lipase (73-393) U/L Urine Color Yellow (YELLOW) Urine Appearance Clear (CLEAR) Urine pH 7.0 (5.0-8.0) Ur Specific [place] 1.020 (1.008-1.030) Urine Protein Negative (NEGATIVE) mg/dL Urine Glucose (UA) Negative (NEGATIVE) mg/dL Urine Ketones Negative (NEGATIVE) mg/dL Urine Occult Blood Negative (NEGATIVE) Urine Nitrite Negative (NEGATIVE) Urine Bilirubin Negative (NEGATIVE) Urine Urobilinogen 1.0 (0.2-1.0) EU/dL Ur Leukocyte Esterase Negative (NEGATIVE) Urine RBC 0-5 (0-5) Urine WBC 0-5 (0-5) Ur Epithelial Cells Few Amorphous Sediment Few Urine Bacteria Few Urine Mucus Not seen Meds: Medications Generic Name Dose Route Start Last Admin Trade Name Freq PRN Reason Stop Dose Admin Sodium Chloride 1,000 mls @ 500 mls/hr 10/02/20 23:15 10/02/20 23:21 Normal Saline IV 500 mls/hr ASDIRECTED ALEKSANDAR Administration Sodium Chloride 10 ml 10/02/20 23:09 10/02/20 23:21 Saline Flush FLUSH 10 ml ASDIRECTED PRN Administration Keep Vein Open Discontinued Medications Generic Name Dose Route Start Last Admin Trade Name Vitaly PRN Reason Stop Dose Admin Fentanyl 50 mcg 10/02/20 23:27 10/02/20 23:33 Sublimaze IVPUSH 10/02/20 23:28 50 mcg ONETIME ONE Administration Hydromorphone HCl 1 mg 10/03/20 01:07 10/03/20 01:14 Dilaudid IVPUSH 10/03/20 01:08 1 mg ONETIME ONE Administration Departure - Departure Time of Disposition: 02:09 Disposition: Home, Self-Care 01 Condition: Fair Clinical Impression: Spinal stenosis of lumbar region Qualifiers: Neurogenic claudication status: with neurogenic claudication Qualified Code(s): M48.062 - Spinal stenosis, lumbar region with neurogenic claudication - Discharge Information Instructions: Spinal Stenosis Referrals: Azam Rosa Sr, MD [Primary Care Provider] - Forms: ED Department Discharge Additional Instructions: Please call the orthopedic clinic that has worked with you in the past, use Percocet as needed for pain control recommend starting stool softener Sepsis Event Note (ED) - Evaluation Sepsis Screening Result: No Definite Risk - Focused Exam Vital Signs: Vital Signs Temp Pulse Resp BP Pulse Ox 10/03/20 01:55 49 L 10 L 158/60 H 97 10/03/20 01:16 56 L 18 183/63 H 100 10/02/20 23:24 48 L 13 179/71 H 100 10/02/20 22:39 95.9 F L 57 L 16 158/52 H 94 L - My Orders Last 24 Hours: My Active Orders 10/02/20 23:09 Peripheral IV Care [RC] . DIRECTED Sodium Chloride 0.9% [Saline Flush] 10 ml FLUSH ASDIRECTED PRN Peripheral IV Insertion Adult [OM.PC] Stat 10/02/20 23:15 Sodium Chloride 0.9% [Normal Saline] 1,000 ml IV ASDIRECTED 10/03/20 00:01 Chest 2V [CR] Urgent - Assessment/Plan Last 24 Hours: My Active Orders 10/02/20 23:09 Peripheral IV Care [RC] . DIRECTED Sodium Chloride 0.9% [Saline Flush] 10 ml FLUSH ASDIRECTED PRN Peripheral IV Insertion Adult [OM.PC] Stat 10/02/20 23:15 Sodium Chloride 0.9% [Normal Saline] 1,000 ml IV ASDIRECTED 10/03/20 00:01 Chest 2V [CR] Urgent Plan: Assessment Acuity = chronic Site and laterality = lumbar spinal stenosis Etiology = unknown Manifestations = none Location of injury = Home Lab values = CBC CMP unremarkable troponin was negative chest x-ray shows no acute process CT scan of the abdomen no acute process Plan Prescription written for Percocet 5/325 1 tab p.o. 3 times daily as needed total #20 recommend contact the orthopedic clinic that she has been evaluated by 4 further pain control treatment This note was dictated using rSmart voice recognition software please call with any questions on syntax or grammar.
[2020-10-02] MEDS ORDERED: fentaNYL 100 MCG/2 ML SDV IVPUSH ONE (23:27)
--- NOTE | 2020-10-03 01:01 | CRLCT ---
INDICATION: Referred abdominal pain left shoulder pain TECHNIQUE: CT Abdomen and pelvis without i.v. contrast. Coronal and sagittal reformats were obtained. COMPARISON: 12/19/2015 FINDINGS: Lower chest: There is a 5 mm nodule in the right lower lobe on image 5 which has slightly increased in size since prior examination. A small subendocardial infarct is present in the intraventricular septum without interval change. Liver: Unremarkable. Spleen: Unremarkable. Pancreas: Unremarkable. Gallbladder: Previous cholecystectomy noted with mild intrahepatic and moderate extrahepatic biliary ductal dilatation seen. The common bile duct measures 13 mm without significant interval change. Kidney: Unremarkable. No kidney or ureteral stones or obstruction seen. Adrenal: Unremarkable. Bowel: There is duodenal diverticulum present measuring 1.8 cm. Moderate amount of stool is present throughout the colon which may be due to chronic constipation. The appendix is not identified. Vascular: Unremarkable. Lymph: Unremarkable. Peritoneum: Unremarkable. No pneumoperitoneum is seen. No significant ascites is noted. Pelvis: Unremarkable. Soft tissue: Unremarkable. Bone: Mild levoscoliosis is noted with associated facet arthritis and degenerative disc disease. IMPRESSION: 1. There is a 5 mm nodule in the right lower lobe on image 5 which has slightly increased in size since prior examination. Continued imaging surveillance is recommended. Dictated by Mainor Castano MD @ 10/03/2020 12:58:36 AM Please note that all CT scans at this facility use dose modulation, iterative reconstruction, and/or weight-based dosing when appropriate to reduce radiation dose to as low as reasonably achievable. Dictated by: Mainor Castano MD @ 10/03/2020 00:58:42 (Electronically Signed)
[2020-10-03] MEDS ORDERED: HYDROmorphone 1 MG/ML Syringe IVPUSH ONE (01:07)
[2020-10-03 01:57] VITALS: BP 158/60; PULSE 49
--- NOTE | 2020-10-06 09:42 | CR ---
CHEST: 2 view CLINICAL HISTORY:Chest pain COMPARISON:01/27/2020 FINDINGS: The heart size, pulmonary vascularity and hilar structures are normal. No infiltrate effusion or pneumothorax is seen. The lungs are emphysematous. There are atherosclerotic changes in the aorta. IMPRESSION: No acute cardiopulmonary process Emphysematous changes
== END 2020-10-03 02:23 | disposition home or self-care (01) ==
LOC: JP.ED 21:49
DX: M48.062 Spinal stenosis, lumbar region with neurogenic claudication (principal); I10 Essential (primary) hypertension; J44.9 Chronic obstructive pulmonary disease, unspecified; E03.9 Hypothyroidism, unspecified; Z88.0 Allergy status to penicillin; Z79.899 Other long term (current) drug therapy; Z72.0 Tobacco use
CPT/HCPCS: 36415; 71046; 74176; 80053; 81001; 83605; 83690; 84484; 85025; 96374; 96375; 99284; J1170; J3010; J7030

== ENCOUNTER 2020-11-01 22:18 | Emergency (ER) | payer MEDICARE, OTHER ==
[2020-11-01] MEDS ORDERED: Baclofen 10 MG Tab PO ONE (22:51)
[2020-11-01] MEDS ORDERED: Acetaminophen 325 MG Tab PO ONE (22:52)
[2020-11-01] MEDS ORDERED: HYDROmorphone 1 MG/ML Syringe IM ONE (22:52)
--- NOTE | 2020-11-01 22:57 | EDM.PDOC ---
ED HPI GENERAL MEDICAL PROBLEM - General Chief Complaint: Back Pain or Injury Stated Complaint: RT SIDE BACK PAIN Time Seen by Provider: 11/01/20 22:53 Source of Information: Reports: Patient History Limitations: Reports: No Limitations - History of Present Illness INITIAL COMMENTS - FREE TEXT/NARRATIVE: pt has a history of chronic back pain, She has spinal stenosis and degenerative disc disease. She has been very uncomfortable all day. She has not fallen or injured herself. Onset: Today, Other (pain was much worse today. 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 Right Posterior Back Pain Score (Numeric/FACES): 9 - Related Data Allergies Allergy/AdvReac Type Severity Reaction Status Date / Time Penicillins Allergy Intermediate Mouth Sores Verified 11/01/20 22:35 Home Meds: Home Meds ALPRAZolam [Xanax] 0.5 mg PO BEDTIME PRN 10/08/15 [History] Escitalopram [Lexapro] 20 mg PO QAM 10/08/15 [History] traZODone HCl [Trazodone HCl] 100 mg PO BEDTIME PRN 10/08/15 [History] Lidocaine 5% [Lidoderm 5%] 1 patch TOP BID PRN 11/08/19 [History] cloNIDine [Catapres] 0.1 mg PO ASDIRECTED 11/08/19 [History] *Levothyroxine 0 mg PO DAILY 04/21/20 [History] Past Medical History HEENT History: Reports: Cataract Cardiovascular History: Reports: Arrhythmia, Hypertension, Other (See Below) Other Cardiovascular History: SVT Respiratory History: Reports: COPD, Pneumonia, Recurrent, SOB, Other (See Below) Other Respiratory History: Usually uses O2 at night 2LPM. 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 failed injection Neurological History: Reports: Migraines Psychiatric History: Reports: Anxiety, Depression Endocrine/Metabolic History: Reports: Hypothyroidism Other Endocrine/Metabolic History: 12/13/2018: reports 20# weight loss over past 6 wks Hematologic History: Reports: Anemia, B12 Deficiency, Blood Transfusion(s) Immunologic History: Reports: None Oncologic (Cancer) History: Reports: None Dermatologic History: Reports: None - Infectious Disease History Infectious Disease History: Reports: Chicken Pox, Measles, Mumps - Past Surgical History Head Surgeries/Procedures: Reports: None HEENT Surgical History: Reports: Cataract Surgery Other HEENT Surgeries/Procedures: wears dentures Cardiovascular Surgical History: Reports: Cardiac Ablation GI Surgical History: Reports: Cholecystectomy, Colonoscopy, EGD Female Surgical History: Reports: Breast Biopsy, Hysterectomy, Salpingo- Oophorectomy Endocrine Surgical History: Reports: Thyroidectomy Neurological Surgical History: Reports: None Musculoskeletal Surgical History: Reports: Other (See Below) Other Musculoskeletal Surgeries/Procedures:: neuroma removed. R TSA 12/13/2018 due to R shoulder pain/OA. right shoulder scope 11/12/19 Oncologic Surgical History: Reports: Biopsy of Breast Social & Family History - Family History Family Medical History: No Pertinent Family History - Tobacco Use Tobacco Use Status *Q: Current Every Day Tobacco User Years of Tobacco use: 55 Packs/Tins Daily: 0.3 Tobacco Use Comment: Trying to quit - Caffeine Use Caffeine Use: Reports: Soda Other Caffeine Use: Pepsi Caffeine Use Comment: pepsi - Recreational Drug Use Recreational Drug Use: No ED ROS GENERAL - Review of Systems Review Of Systems: See Below Constitutional: Reports: No Symptoms HEENT: Reports: No Symptoms Respiratory: Reports: No Symptoms Cardiovascular: Reports: No Symptoms Endocrine: Reports: No Symptoms GI/Abdominal: Reports: No Symptoms : Reports: No Symptoms Musculoskeletal: Reports: Other (pain in the mid back and goes up to her neck. ) Skin: Reports: No Symptoms ED EXAM,LOWER BACK PAIN/INJURY - Physical Exam Exam: See Below Text/Narrative:: Pt arrived with pain in the low back going to the neck. This is mainly on the left side. Exam Limited By: No Limitations General Appearance: Alert, Anxious, Moderate Distress Ears: Normal TMs Nose: Normal Inspection Throat/Mouth: Normal Inspection Head: Atraumatic Neck: Normal Inspection Respiratory/Chest: No Respiratory Distress Cardiovascular: Regular Rate, Rhythm GI/Abdominal: Soft, Non-Tender (Female) Exam: Deferred Rectal (Female) Exam: Deferred Back Exam: CVA Tenderness (R), Muscle Spasm Extremities: Normal Inspection Course - Vital Signs Last Recorded V/S: Last Vital Signs Temp 36.3 C 11/01/20 22:46 Pulse 63 11/01/20 23:24 Resp 14 11/01/20 23:24 BP 149/50 H 11/01/20 23:24 Pulse Ox 97 11/01/20 23:24 - Orders/Labs/Meds Labs: Laboratory Tests 11/01/20 Range/Units 22:59 Urine Color Yellow (YELLOW) Urine Appearance Slightly cloudy A (CLEAR) Urine pH 6.0 (5.0-8.0) Ur Specific [place] 1.025 (1.008-1.030) Urine Protein Negative (NEGATIVE) mg/dL Urine Glucose (UA) Negative (NEGATIVE) mg/dL Urine Ketones Negative (NEGATIVE) mg/dL Urine Occult Blood Negative (NEGATIVE) Urine Nitrite Negative (NEGATIVE) Urine Bilirubin Negative (NEGATIVE) Urine Urobilinogen 0.2 (0.2-1.0) EU/dL Ur Leukocyte Esterase Negative (NEGATIVE) Urine RBC 0-5 (0-5) Urine WBC 0-5 (0-5) Ur Epithelial Cells Moderate Amorphous Sediment Few Urine Bacteria Few Urine Mucus Few Meds: Medications Discontinued Medications Generic Name Dose Route Start Last Admin Trade Name Rolandq PRN Reason Stop Dose Admin Acetaminophen 650 mg 11/01/20 22:52 11/01/20 22:59 Tylenol PO 11/01/20 22:53 650 mg NOW ONE Administration Baclofen 10 mg 11/01/20 22:51 11/01/20 23:00 Lioresal PO 11/01/20 22:52 10 mg ONETIME ONE Administration Hydromorphone HCl 1 mg 11/01/20 22:52 11/01/20 23:00 Dilaudid IM 11/01/20 22:53 1 mg ONETIME ONE Administration - Re-Assessments/Exams Free Text/Narrative Re-Assessment/Exam: 11/01/20 23:12 pt was given baclofen, tylenol and dilaudid. She is interested in getting home so she can relax. UA is clear 11/01/20 23:36 Departure - Departure Time of Disposition: 23:36 Disposition: Home, Self-Care 01 Condition: Fair Clinical Impression: Spinal stenosis, Degenerative disc disease - Discharge Information Referrals: Azam Rosa Sr, MD [Primary Care Provider] - Forms: ED Department Discharge Care Plan Goals: moist heat to the rt back area, get tylenol 650 so it can be used tid, percocet 5/325 q6h prn for pain-severe Sepsis Event Note (ED) - Evaluation Sepsis Screening Result: No Definite Risk - Focused Exam Vital Signs: Vital Signs Temp Pulse Resp BP Pulse Ox 11/01/20 23:24 63 14 149/50 H 97 11/01/20 22:46 36.3 C 65 16 153/63 H 97
[2020-11-01 23:25] VITALS: BP 149/50; PULSE 63
== END 2020-11-01 23:43 | disposition home or self-care (01) ==
LOC: JP.ED 22:18
DX: M48.061 Spinal stenosis, lumbar region without neurogenic claudication (principal); M51.36 Other intervertebral disc degeneration, lumbar region; I10 Essential (primary) hypertension; J44.9 Chronic obstructive pulmonary disease, unspecified; E03.9 Hypothyroidism, unspecified; Z72.0 Tobacco use; Z88.0 Allergy status to penicillin; Z79.899 Other long term (current) drug therapy
CPT/HCPCS: 81001; 96372; 99283; A9270; J1170

== ENCOUNTER 2020-11-19 17:18 | Emergency (ER) | payer MEDICARE, OTHER ==
[~2020-11-19 17:18] MED LIST changes: +Acetaminophen/oxyCODONE 325-5 MG Tab PO SCH; -Dexamethasone 4 MG/ML SDV ONE; -Glycopyrrolate 0.2 MG/ML 5 ML MDV ONE; -Neostigmine Methylsulfate 1 MG/ML 5 ML Syringe ONE; -Ondansetron 4 MG/2 ML SDV ONE; -Povidone-Iodine 10% Soln 118.25 ML Bottle ONE; -Propofol 200 MG/20 ML SDV ONE; -Rocuronium 50 MG/5 ML Vial ONE; -Succinylcholine 200 MG/10 ML MDV ONE; -fentaNYL 250 MCG/5 ML SDV ONE
[2020-11-19 17:41] VITALS: BP 133/68; PULSE 72
--- NOTE | 2020-11-19 18:14 | EDM.PDOC ---
ED HPI GENERAL MEDICAL PROBLEM - General Chief Complaint: Lower Extremity Injury/Pain Stated Complaint: FELL Time Seen by Provider: 11/19/20 17:59 Source of Information: Reports: Patient History Limitations: Reports: No Limitations - History of Present Illness INITIAL COMMENTS - FREE TEXT/NARRATIVE: Heavenly is a 75-year-old female presenting to the ED for evaluation of right knee pain. Patient was walking in her house to go to the washroom and went to grab the "grab bar in her bathroom next to the shower, misjudged his distance and missed it causing her to fall onto her right knee." The patient was able to get back up but has been experiencing increasing pain in the knee since the fall. She denies any pain to palpation, however, she does state it is quite painful when she stands on it or tries to bear weight. She does ambulate with the use of a cane and at times uses a walker. Neither of these have been helpful because again she has to bear weight on the knee to ambulate. She denies any other injury associated with the fall. Patient does have a past medical history significant for spinal stenosis and degenerative disc disease and states that she has a thoracic disc that is herniated pressing on a nerve causing peripheral neuropathy. Right Knee Pain Score (Numeric/FACES): 5 - Related Data Allergies Allergy/AdvReac Type Severity Reaction Status Date / Time Penicillins Allergy Intermediate Mouth Sores Verified 11/19/20 17:47 Home Meds: Home Meds ALPRAZolam [Xanax] 0.5 mg PO BEDTIME PRN 10/08/15 [History] Escitalopram [Lexapro] 20 mg PO QAM 10/08/15 [History] traZODone HCl [Trazodone HCl] 100 mg PO BEDTIME PRN 10/08/15 [History] Lidocaine 5% [Lidoderm 5%] 1 patch TOP BID PRN 11/08/19 [History] cloNIDine [Catapres] 0.1 mg PO ASDIRECTED 11/08/19 [History] *Levothyroxine 0 mg PO DAILY 04/21/20 [History] Past Medical History HEENT History: Reports: Cataract Cardiovascular History: Reports: Arrhythmia, Hypertension, Other (See Below) Other Cardiovascular History: SVT Respiratory History: Reports: COPD, Pneumonia, Recurrent, SOB, Other (See Below) Other Respiratory History: Usually uses O2 at night 2LPM. 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 failed injection Neurological History: Reports: Migraines Psychiatric History: Reports: Anxiety, Depression Endocrine/Metabolic History: Reports: Hypothyroidism Other Endocrine/Metabolic History: 12/13/2018: reports 20# weight loss over past 6 wks Hematologic History: Reports: Anemia, B12 Deficiency, Blood Transfusion(s) Immunologic History: Reports: None Oncologic (Cancer) History: Reports: None Dermatologic History: Reports: None - Infectious Disease History Infectious Disease History: Reports: Chicken Pox, Measles, Mumps - Past Surgical History Head Surgeries/Procedures: Reports: None HEENT Surgical History: Reports: Cataract Surgery Other HEENT Surgeries/Procedures: wears dentures Cardiovascular Surgical History: Reports: Cardiac Ablation GI Surgical History: Reports: Cholecystectomy, Colonoscopy, EGD Female Surgical History: Reports: Breast Biopsy, Hysterectomy, Salpingo- Oophorectomy Endocrine Surgical History: Reports: Thyroidectomy Musculoskeletal Surgical History: Reports: Other (See Below) Other Musculoskeletal Surgeries/Procedures:: neuroma removed. R TSA 12/13/2018 due to R shoulder pain/OA. right shoulder scope 11/12/19 Oncologic Surgical History: Reports: Biopsy of Breast Social & Family History - Family History Family Medical History: No Pertinent Family History - Tobacco Use Tobacco Use Status *Q: Light Tobacco User Years of Tobacco use: 50 Packs/Tins Daily: 0.5 - Caffeine Use Caffeine Use: Reports: Soda Other Caffeine Use: Pepsi Caffeine Use Comment: pepsi - Recreational Drug Use Recreational Drug Use: No Review of Systems - Review of Systems Review Of Systems: See Below Constitutional: Reports: No Symptoms Eyes: Reports: No Symptoms Ears: Reports: No Symptoms Nose: Reports: No Symptoms Mouth/Throat: Reports: No Symptoms Respiratory: Reports: No Symptoms Cardiovascular: Reports: No Symptoms GI/Abdominal: Reports: No Symptoms Genitourinary: Reports: No Symptoms Musculoskeletal: Reports: Joint Pain (Right knee pain), Joint Swelling (Right knee swelling) Skin: Reports: Bruising (Right knee) Neurological: Reports: Numbness (Peripheral neuropathy in both lower extremities), Difficulty Walking (Due to right knee pain) Psychiatric: Reports: No Symptoms ED EXAM, GENERAL - Physical Exam Exam: See Below Exam Limited By: No Limitations General Appearance: Alert, No Apparent Distress Eye Exam: Bilateral Eye: EOMI, PERRL Head: Atraumatic, Normocephalic Neck: Normal Inspection, Supple, Non-Tender, Full Range of Motion Extremities: Joint Swelling (Right knee), Limited Range of Motion (Right knee with pain on the medial and lateral joint line, swelling around the patella. Range of motion is limited between 100 - 165 degrees.), Other (No focal area of tenderness is identified. There is bruising over the patella.). No: Pedal Edema, Slow Capillary Refill, Increased Warmth Neurological: Alert, Oriented, Normal Cognition, Sensory/Motor Deficit (Decreased sensation to light touch in both lower extremities. This is apparently chronic and ongoing secondary to her spinal stenosis.) Skin Exam: Warm, Dry, Intact, Ecchymosis (Bruising over the right patella) Lymphatic: No Adenopathy Course - Vital Signs Last Recorded V/S: Last Vital Signs Temp 36.6 C 11/19/20 17:47 Pulse 72 11/19/20 17:47 Resp 16 11/19/20 17:47 BP 133/68 11/19/20 17:47 Pulse Ox 97 11/19/20 17:47 - Orders/Labs/Meds Orders: Active Orders 24 hr Category Date Time Status Knee 3V Rt [CR] Stat Exams 11/19/20 18:00 Taken - Radiology Interpretation Free Text/Narrative:: Right knee 3 view -there appears to be a fracture on the lateral view of the patella. I do not see this in any of the other views. We will get a CT of the right knee to better visualize this. CT of the right knee -there is a nondisplaced transverse fracture of the patella. - Re-Assessments/Exams Free Text/Narrative Re-Assessment/Exam: 11/19/20 20:17 the patient has a nondisplaced transverse fracture of the right patella. I discussed the case with Dr. Humble Baron from orthopedic surgery who would like to see the patient in the [facility] tomorrow at 9 AM. He recommends a knee immobilizer with nonweightbearing on the right leg. She does have a walker and can use this. She does live alone but has a helper who is a highway truck driver. We will send her home with Percocet for pain. Departure - Departure Time of Disposition: 20:20 Disposition: Home, Self-Care 01 Clinical Impression: Right patella fracture Qualifiers: Encounter type: initial encounter Fracture type: closed Fracture morphology: transverse Fracture alignment: nondisplaced Qualified Code(s): S82.034A - Nondisplaced transverse fracture of right patella, initial encounter for closed fracture - Discharge Information *PRESCRIPTION DRUG MONITORING PROGRAM REVIEWED*: Yes *COPY OF PRESCRIPTION DRUG MONITORING REPORT IN PATIENT SOFIA: No Instructions: Patellar Fracture, Adult, Pain Medicine Instructions, [id number] Referrals: Azam Rosa Sr, MD [Primary Care Provider] - Forms: ED Department Discharge Care Plan Goals: I discussed the case with Dr. Baron from [facility] orthopedics. He would like to see you in the clinic at [place] tomorrow at 9 AM for a reevaluation of the fracture. Please remain nonweightbearing on the right leg and use your walker to get around. Please leave the knee immobilizer in place. I am sending you home with 3 tablets of Percocet for overnight and a prescription for additional 10 tablets for pain. The remainder of the pain medication will need to come from Dr. Baron. Sepsis Event Note (ED) - Evaluation Sepsis Screening Result: No Definite Risk - Focused Exam Vital Signs: Vital Signs Temp Pulse Resp BP Pulse Ox 11/19/20 17:47 36.6 C 72 16 133/68 97 11/19/20 17:40 36.6 C 72 16 133/68 97 - Problem List & Annotations (1) Right patella fracture SNOMED Code(s): 69076662 Code(s): S82.001A - UNSP FRACTURE OF RIGHT PATELLA, INIT FOR CLOS FX Status: Acute Priority: High Current Visit: Yes Qualifiers: Encounter type: initial encounter Fracture type: closed Fracture morphology: transverse Fracture alignment: nondisplaced Qualified Code(s): S82.034A - Nondisplaced transverse fracture of right patella, initial encounter for closed fracture - Problem List Review Problem List Initiated/Reviewed/Updated: Yes - My Orders Last 24 Hours: My Active Orders 11/19/20 18:00 Knee 3V Rt [CR] Stat - Assessment/Plan Last 24 Hours: My Active Orders 11/19/20 18:00 Knee 3V Rt [CR] Stat
--- NOTE | 2020-11-19 19:40 | CRLCT ---
Indication: Fall. Pain Technique: A noncontrast right knee CT. Comparison: None available Findings: There is a nondisplaced patellar fracture with a transverse/oblique component involving the articular surface, extending to the lower half of the anterior patellar cortex, as well as nondisplaced vertical and oblique components involving the anterior cortex. There is no dislocation. There is a large suprapatellar lipohemarthrosis. There are tricompartmental degenerative changes with osteophyte formation, medial compartment joint space narrowing and chondrocalcinosis/meniscal calcifications. Irregular calcifications in the periphery of the medial compartment could be related to calcified extruded meniscal fragments. A loose intra-articular body is seen in the posterior aspect of the medial compartment. Impression: A nondisplaced patellar fracture. A large lipohemarthrosis. Tricompartmental degenerative changes. Dictated by Neil Azar MD @ 11/19/2020 7:37:22 PM Please note that all CT scans at this facility use dose modulation, iterative reconstruction, and/or weight-based dosing when appropriate to reduce radiation dose to as low as reasonably achievable. Dictated by: Neil Azar MD @ 11/19/2020 19:39:45 (Electronically Signed)
[2020-11-19] MEDS ORDERED: Acetaminophen/oxyCODONE 325-5 MG Tab ONE (20:21)
--- NOTE | 2020-11-20 09:10 | CR ---
Knee 3V Rt CLINICAL HISTORY: Pain, fall FINDINGS: There is a transverse fracture of the patella on the lateral view. It is nondisplaced. There is fluid in the suprapatellar bursa which may be a hemarthrosis. There are severe osteoarthritic changes. Impression: Nondisplaced transverse patellar fracture Joint fluid may represent hemarthrosis
== END 2020-11-19 20:32 | disposition home or self-care (01) ==
LOC: JP.ED 17:18
DX: S82.034A Nondisplaced transverse fracture of right patella, initial encounter for closed fracture (principal); I10 Essential (primary) hypertension; J44.9 Chronic obstructive pulmonary disease, unspecified; E03.9 Hypothyroidism, unspecified; Z79.899 Other long term (current) drug therapy; Z88.0 Allergy status to penicillin; Z72.0 Tobacco use; W19.XXXA Unspecified fall, initial encounter
CPT/HCPCS: 73562-26-RT; 73562-RT; 73700-RT; 99283; 99284-25; A9270-GY

== ENCOUNTER 2020-12-07 | Emergency (ER) | payer MEDICARE, OTHER ==
[2020-12-07 00:28] VITALS: BP 184/71; PULSE 55
--- NOTE | 2020-12-07 00:38 | EDM.PDOC ---
ED HPI GENERAL MEDICAL PROBLEM - General Chief Complaint: Back Pain or Injury Stated Complaint: FALL HURT BACK Time Seen by Provider: 12/07/20 00:27 Source of Information: Reports: Patient, Old Records History Limitations: Reports: No Limitations - History of Present Illness INITIAL COMMENTS - FREE TEXT/NARRATIVE: Heavenly is a 75-year-old female who is known to me from a previous visit on 11/19/2020 when she broke her left patella while trying to go from the bed to the bathroom. Tonight she was again trying to go from the bed to the bathroom and was trying to step around a box fan that she has at the entrance of the bathroom. She states that her right leg gave out causing her to fall into the door jam striking her right posterior chest and hip area. The patient is having increasing frequency of falls and lives alone which is concerning to me. He is currently in a knee immobilizer for her patellar fracture and should be ambulating with the use of a walker or a cane but does not feel that she needs to do that when only traveling from her bed to the bathroom. Ironically this is where she fell both times and I managed to point that out to the patient. Right Lower Back Pain Score (Numeric/FACES): 10 - Related Data Allergies Allergy/AdvReac Type Severity Reaction Status Date / Time Penicillins Allergy Intermediate Mouth Sores Verified 12/07/20 00:20 Home Meds: Home Meds ALPRAZolam [Xanax] 0.5 mg PO BEDTIME PRN 10/08/15 [History] Escitalopram [Lexapro] 20 mg PO QAM 10/08/15 [History] traZODone HCl [Trazodone HCl] 100 mg PO BEDTIME PRN 10/08/15 [History] Lidocaine 5% [Lidoderm 5%] 1 patch TOP BID PRN 11/08/19 [History] cloNIDine [Catapres] 0.1 mg PO ASDIRECTED 11/08/19 [History] *Levothyroxine 0 mg PO DAILY 04/21/20 [History] Past Medical History HEENT History: Reports: Cataract Cardiovascular History: Reports: Arrhythmia, Hypertension, Other (See Below) Other Cardiovascular History: SVT Respiratory History: Reports: COPD, Pneumonia, Recurrent, SOB, Other (See Below) Other Respiratory History: Usually uses O2 at night 2LPM. 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 failed injection Neurological History: Reports: Migraines Psychiatric History: Reports: Anxiety, Depression Endocrine/Metabolic History: Reports: Hypothyroidism Other Endocrine/Metabolic History: 12/13/2018: reports 20# weight loss over past 6 wks Hematologic History: Reports: Anemia, B12 Deficiency, Blood Transfusion(s) Immunologic History: Reports: None Oncologic (Cancer) History: Reports: None Dermatologic History: Reports: None - Infectious Disease History Infectious Disease History: Reports: Chicken Pox, Measles, Mumps - Past Surgical History Head Surgeries/Procedures: Reports: None HEENT Surgical History: Reports: Cataract Surgery Other HEENT Surgeries/Procedures: wears dentures Cardiovascular Surgical History: Reports: Cardiac Ablation GI Surgical History: Reports: Cholecystectomy, Colonoscopy, EGD Female Surgical History: Reports: Breast Biopsy, Hysterectomy, Salpingo- Oophorectomy Endocrine Surgical History: Reports: Thyroidectomy Neurological Surgical History: Reports: None Musculoskeletal Surgical History: Reports: Other (See Below) Other Musculoskeletal Surgeries/Procedures:: neuroma removed. R TSA 12/13/2018 due to R shoulder pain/OA. right shoulder scope 11/12/19 Oncologic Surgical History: Reports: Biopsy of Breast Social & Family History - Family History Family Medical History: No Pertinent Family History - Tobacco Use Tobacco Use Status *Q: Current Every Day Tobacco User Years of Tobacco use: 50 Packs/Tins Daily: 0.5 Used Tobacco, but Quit: No Second Hand Smoke Exposure: No - Caffeine Use Caffeine Use: Reports: Soda Other Caffeine Use: Pepsi Caffeine Use Comment: pepsi - Recreational Drug Use Recreational Drug Use: No ED ROS GENERAL - Review of Systems Review Of Systems: See Below Constitutional: Reports: No Symptoms HEENT: Reports: No Symptoms Respiratory: Reports: No Symptoms Cardiovascular: Reports: Chest Pain (Lower posterior right chest) Endocrine: Reports: No Symptoms GI/Abdominal: Reports: No Symptoms : Reports: No Symptoms Musculoskeletal: Reports: Back Pain (Right low back pain without midline tenderness.), Joint Pain (Right hip pain but able to bear weight.), Other (Recent left patellar fracture. In a knee immobilizer.) Neurological: Reports: Difficulty Walking (Patient walks with typical assist of a cane or a walker due to gait instability. Recent left patellar fracture.), Weakness (Generalized weakness with frequent falls) Psychiatric: Reports: No Symptoms Hematologic/Lymphatic: Reports: No Symptoms Immunologic: Reports: No Symptoms ED EXAM,LOWER BACK PAIN/INJURY - Physical Exam Exam: See Below Exam Limited By: No Limitations General Appearance: Alert, Mild Distress Eye Exam: Bilateral Eye: EOMI, PERRL Head: Atraumatic, Normocephalic Neck: Normal Inspection Respiratory/Chest: No Respiratory Distress, Lungs Clear, Normal Breath Sounds, Other (Tenderness of the posterior right chest over the 10th, 11th, and 12th ri bs) Cardiovascular: Normal Peripheral Pulses, Regular Rate, Rhythm GI/Abdominal: Normal Bowel Sounds, Soft, Non-Tender Back Exam: Normal Inspection. No: Paraspinal Tenderness, Vertebral Tenderness Extremities: Other (Tenderness with palpation over the right iliac crest extending down towards the hip but not including the hip. Knee immobilizer in place on the knee for previous patellar fracture) Neurological: Alert, Normal Mood/Affect, No Motor/Sensory Deficits, Oriented x 3 Psychiatric: Normal Affect, Normal Mood Skin Exam: Warm, Dry, Intact, Normal Color. No: Ecchymosis Lymphatic: No Adenopathy Front/Back Body Diagram: 1 - Tenderness to palpation without step-off, crepitus, or obvious deformity. No bruising noticed on the skin. 2 - Tenderness to palpation without obvious swelling or ecchymosis. Course - Vital Signs Last Recorded V/S: Last Vital Signs Temp 36.4 C 12/07/20 00:26 Pulse 55 L 12/07/20 00:26 Resp 16 12/07/20 00:26 BP 184/71 H 12/07/20 00:26 Pulse Ox 96 12/07/20 00:26 - Orders/Labs/Meds Orders: Active Orders 24 hr Category Date Time Status Pelvis 1V or 2V [CR] Stat Exams 12/07/20 00:36 Taken Ribs 2V wo Chest Rt [CR] Stat Exams 12/07/20 00:36 Taken Meds: Medications Discontinued Medications Generic Name Dose Route Start Last Admin Trade Name Vitaly PRN Reason Stop Dose Admin Ketorolac Tromethamine 15 mg 12/07/20 00:43 12/07/20 00:51 Ketorolac 30 Mg/Ml Sdv IM 12/07/20 00:44 15 mg ONETIME ONE Administration - Radiology Interpretation Free Text/Narrative:: I reviewed the right rib x-rays and the x-ray of the pelvis. Both failed to demonstrate any acute abnormalities. - Re-Assessments/Exams Free Text/Narrative Re-Assessment/Exam: 12/07/20 01:16 on examination, the patient has tenderness over the lower posterior lateral chest wall on the right as well as over the right iliac crest. X-rays were obtained and show no acute osseous abnormalities. The pain is likely due to contusion of the soft tissue over both regions. The patient was given Toradol 15 mg IM for pain control. With the absence of any osseous abnormalities, I feel the patient is well enough to be able to go home. She may continue to take Tylenol and/or ibuprofen for pain control. She should follow- up with Dr. Rosa as needed. Again I am quite concerned about her frequent falls and the fact that she lives alone, however, this will need to be addressed by her primary care provider Departure - Departure Time of Disposition: 01:17 Disposition: Home, Self-Care 01 Clinical Impression: Contusion of right hip region Contusion of right chest wall Qualifiers: Encounter type: initial encounter Qualified Code(s): S20.211A - Contusion of right front wall of thorax, initial encounter Fall from standing Qualifiers: Encounter type: initial encounter Qualified Code(s): W19.XXXA - Unspecified fall, initial encounter Spinal stenosis Qualifiers: Spinal region: unspecified Qualified Code(s): M48.00 - Spinal stenosis, site unspecified - Discharge Information Instructions: Spinal Stenosis, Contusion, [id number] Referrals: PCP,None [Primary Care Provider] - Forms: ED Department Discharge Care Plan Goals: Please use your walker or cane when ambulating from the bed to the bathroom. Di scuss with Dr. Rosa if there is anything additional that you need to do to lower your risk of recurring falls. You may want to consider getting a med alert bracelet or pendant. Sepsis Event Note (ED) - Evaluation Sepsis Screening Result: No Definite Risk - Focused Exam Vital Signs: Vital Signs Temp Pulse Resp BP Pulse Ox 12/07/20 00:26 36.4 C 55 L 16 184/71 H 96 - Problem List & Annotations (1) Contusion of right chest wall SNOMED Code(s): 98414681530583758 Code(s): S20.211A - CONTUSION OF RIGHT FRONT WALL OF THORAX, INITIAL ENCOUNTER Status: Acute Priority: Medium Current Visit: Yes Qualifiers: Encounter type: initial encounter Qualified Code(s): S20.211A - Contusion of right front wall of thorax, initial encounter (2) Contusion of right hip region SNOMED Code(s): 31245057 Code(s): S70.01XA - CONTUSION OF RIGHT HIP, INITIAL ENCOUNTER Status: Acute Priority: Medium Current Visit: Yes (3) Fall from standing SNOMED Code(s): 8944219 Code(s): W19.XXXA - UNSPECIFIED FALL, INITIAL ENCOUNTER Status: Acute Priority: Medium Current Visit: Yes Qualifiers: Encounter type: initial encounter Qualified Code(s): W19.XXXA - Unspecified fall, initial encounter - Problem List Review Problem List Initiated/Reviewed/Updated: Yes - My Orders Last 24 Hours: My Active Orders 12/07/20 00:36 Pelvis 1V or 2V [CR] Stat Ribs 2V wo Chest Rt [CR] Stat - Assessment/Plan Last 24 Hours: My Active Orders 12/07/20 00:36 Pelvis 1V or 2V [CR] Stat Ribs 2V wo Chest Rt [CR] Stat
[2020-12-07] MEDS ORDERED: Ketorolac 30 MG/ML SDV IM ONE (00:43)
[2020-12-07] MEDS ORDERED: Lidocaine 5% 700 MG Patch TOP ONE (01:30)
--- NOTE | 2020-12-08 09:13 | CR ---
Pelvis 1V or 2V CLINICAL HISTORY: Fall, pain FINDINGS: No fracture or dislocation is identified. Hip joint spaces are fairly well-maintained. There is some sclerosis at the SI joints. Some degenerative change in the lumbar spine IMPRESSION: No fracture
--- NOTE | 2020-12-08 09:16 | CR ---
Ribs 2V wo Chest Rt CLINICAL HISTORY: Fall FINDINGS: No rib fractures identified. Right lung appears well-aerated. Right apex is not seen. There is no pleural thickening or effusion IMPRESSION: No rib fracture seen
== END 2020-12-07 02:00 | disposition home or self-care (01) ==
LOC: JP.ED
DX: S70.01XA Contusion of right hip, initial encounter (principal); S20.211A Contusion of right front wall of thorax, initial encounter; M48.00 Spinal stenosis, site unspecified; I10 Essential (primary) hypertension; J44.9 Chronic obstructive pulmonary disease, unspecified; E03.9 Hypothyroidism, unspecified; Z88.0 Allergy status to penicillin; Z79.899 Other long term (current) drug therapy; Z72.0 Tobacco use; W18.30XA Fall on same level, unspecified, initial encounter
CPT/HCPCS: 71100-26-RT; 71100-RT; 72170; 72170-26; 96372; 99283; 99284; A9270-GY; J1885

== ENCOUNTER 2021-01-21 11:07 | Emergency (ER) | payer MEDICARE, OTHER ==
--- NOTE | 2021-01-21 12:30 | EDM.PDOC ---
ED HPI GENERAL MEDICAL PROBLEM - General Chief Complaint: Back Pain or Injury Stated Complaint: FELL HIT HEAD, BACK PAIN Time Seen by Provider: 01/21/21 11:50 Source of Information: Reports: Patient History Limitations: Reports: No Limitations - History of Present Illness INITIAL COMMENTS - FREE TEXT/NARRATIVE: 75-year-old female who has frequent falls, fell again this morning and bumped her head on her oxygen tank, also has a pain in her right flank area and a superficial skin tear on her right elbow. She ambulated without problem. I think she is most concerned about the right posterior flank, and whether or not she has to continue wearing the knee immobilizer. She is also asking for something for pain but looks comfortable. Onset: Sudden Duration: Hour(s): (3 hours ago) Location: Reports: Head, Back, Upper Extremity, Right Associated Symptoms: Denies: Confusion, Chest Pain, Cough, Malaise, Nausea/Vomiting, Shortness of Breath Upper Back Pain Score (Numeric/FACES): 8 - Related Data Allergies Allergy/AdvReac Type Severity Reaction Status Date / Time Penicillins Allergy Intermediate Mouth Sores Verified 01/21/21 11:35 Home Meds: Home Meds ALPRAZolam [Xanax] 0.5 mg PO BEDTIME PRN 10/08/15 [History] Escitalopram [Lexapro] 20 mg PO QAM 10/08/15 [History] traZODone HCl [Trazodone HCl] 100 mg PO BEDTIME PRN 10/08/15 [History] cloNIDine [Catapres] 0.1 mg PO ASDIRECTED 11/08/19 [History] *Levothyroxine 0 mg PO DAILY 04/21/20 [History] Lidocaine 5% [Lidoderm 5%] 1 patch TOP DAILY #10 patch 12/07/20 [Rx] Folic Acid 1 mg PO DAILY 01/21/21 [History] Past Medical History HEENT History: Reports: Cataract Cardiovascular History: Reports: Arrhythmia, Hypertension, Other (See Below) Other Cardiovascular History: SVT Respiratory History: Reports: COPD, Pneumonia, Recurrent, SOB, Other (See Below) Other Respiratory History: Usually uses O2 at night 2LPM. 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 failed injection Neurological History: Reports: Migraines Psychiatric History: Reports: Anxiety, Depression Endocrine/Metabolic History: Reports: Hypothyroidism Other Endocrine/Metabolic History: 12/13/2018: reports 20# weight loss over past 6 wks Hematologic History: Reports: Anemia, B12 Deficiency, Blood Transfusion(s) Immunologic History: Reports: None Oncologic (Cancer) History: Reports: None Dermatologic History: Reports: None - Infectious Disease History Infectious Disease History: Reports: Chicken Pox, Measles, Mumps - Past Surgical History Head Surgeries/Procedures: Reports: None HEENT Surgical History: Reports: Cataract Surgery Other HEENT Surgeries/Procedures: wears dentures Cardiovascular Surgical History: Reports: Cardiac Ablation GI Surgical History: Reports: Cholecystectomy, Colonoscopy, EGD Female Surgical History: Reports: Breast Biopsy, Hysterectomy, Salpingo- Oophorectomy Endocrine Surgical History: Reports: Thyroidectomy Neurological Surgical History: Reports: None Musculoskeletal Surgical History: Reports: Other (See Below) Other Musculoskeletal Surgeries/Procedures:: neuroma removed fx patella. R TSA 12/13/2018 due to R shoulder chelsea n/OA. right shoulder scope 11/12/19 Oncologic Surgical History: Reports: Biopsy of Breast Social & Family History - Family History Family Medical History: No Pertinent Family History - Tobacco Use Tobacco Use Status *Q: Current Every Day Tobacco User Years of Tobacco use: 55 Packs/Tins Daily: 0.5 Used Tobacco, but Quit: No Second Hand Smoke Exposure: Yes - Caffeine Use Caffeine Use: Reports: Soda Other Caffeine Use: Pepsi Caffeine Use Comment: pepsi - Recreational Drug Use Recreational Drug Use: No ED ROS GENERAL - Review of Systems Review Of Systems: See Below Constitutional: Denies: Fever, Chills HEENT: Denies: Vision Change Respiratory: Reports: Other (Chronic COPD changes, stable) GI/Abdominal: Denies: Nausea, Vomiting Skin: Reports: Bruising (Bruising on her forehead, skin tear on her right arm and bruising on her forearms) Neurological: Reports: Weakness Psychiatric: Reports: No Symptoms ED EXAM, GENERAL - Physical Exam Exam: See Below Exam Limited By: No Limitations General Appearance: Alert, No Apparent Distress Head: Other (She does have ecchymosis on her forehead centrally but no hematoma, EOMs are intact and no significant tenderness to palpation of the scalp) Neck: Supple, Non-Tender Respiratory/Chest: No Respiratory Distress, Lungs Clear Cardiovascular: Regular Rate, Rhythm GI/Abdominal: Soft, Non-Tender Back Exam: Paraspinal Tenderness (A small amount of tenderness to palpation just to the right of the spine on the right flank area, no bruising or deformity) Extremities: Other (Small skin tear on her right elbow as mentioned in HPI and below, no bony tenderness. Knee immobilizer was removed on her right leg and she had good active range of motion without pain) Neurological: Alert, Oriented Skin Exam: Warm, Dry, Other (There is a 2 x 3 cm superficial skin tear on the right elbow, no underlying bony tenderness.) Course - Vital Signs Last Recorded V/S: Last Vital Signs Temp 98.1 F 01/21/21 11:42 Pulse 72 01/21/21 12:29 Resp 16 01/21/21 11:42 BP 157/70 H 01/21/21 12:29 Pulse Ox 96 01/21/21 11:42 - Re-Assessments/Exams Free Text/Narrative Re-Assessment/Exam: 01/21/21 12:28 Patient was reassured that her injuries are not significant at this time, no further evaluation needed. Tylenol should be helpful with pain, I want avoid any stronger medications because she is already falling fairly frequently. A Tegaderm was placed over the skin tear on her right elbow and her knee immobilizer was removed after discussing her case with Dr. Azam Rosa her primary provider. Departure - Departure Time of Disposition: 12:45 Disposition: Home, Self-Care 01 Clinical Impression: Skin tear Forehead contusion Qualifiers: Encounter type: initial encounter Qualified Code(s): S00.83XA - Contusion of other part of head, initial encounter Contusion of flank Qualifiers: Encounter type: initial encounter Qualified Code(s): S30.1XXA - Contusion of abdominal wall, initial encounter - Discharge Information Instructions: Contusion, [id number] Referrals: Azam Rosa Sr, MD [Primary Care Provider] - Forms: ED Department Discharge Care Plan Goals: Continue your current medications, Tylenol may be helpful with any pain. You do not have to wear the immobilizer anymore, follow-up with Dr. Rosa as needed if concerns. Increase activity as tolerated. Sepsis Event Note (ED) - Evaluation Sepsis Screening Result: No Definite Risk - Focused Exam Vital Signs: Vital Signs Temp Pulse Resp BP Pulse Ox 01/21/21 12:29 72 157/70 H 01/21/21 11:42 98.1 F 76 16 134/73 96 01/21/21 11:24 98.1 F 76 16 134/73 96
[2021-01-21 12:41] VITALS: BP 157/70; PULSE 72
== END 2021-01-21 12:45 | disposition home or self-care (01) ==
LOC: JP.ED 11:07
DX: S51.011A Laceration without foreign body of right elbow, initial encounter (principal); S30.1XXA Contusion of abdominal wall, initial encounter; S00.83XA Contusion of other part of head, initial encounter; Z88.0 Allergy status to penicillin; E03.9 Hypothyroidism, unspecified; Z79.899 Other long term (current) drug therapy; Z72.0 Tobacco use; W18.09XA Striking against other object with subsequent fall, initial encounter
CPT/HCPCS: 99282; 99283

== ENCOUNTER 2021-03-02 14:31 | Emergency (ER) | payer MEDICARE, OTHER ==
[2021-03-02 14:57] VITALS: BP 154/74; PULSE 81
--- NOTE | 2021-03-02 15:23 | EDM.PDOC ---
ED HPI GENERAL MEDICAL PROBLEM - General Chief Complaint: Back Pain or Injury Stated Complaint: EXTREME BACK PAIN Time Seen by Provider: 03/02/21 15:08 Source of Information: Reports: Patient History Limitations: Reports: No Limitations - History of Present Illness INITIAL COMMENTS - FREE TEXT/NARRATIVE: Heavenly is an alert tearful 75 year old female whom present to ER due to acute on chronic back pain with known history of Lumbar stenosis and disease. Heavenly was previous managed by pain clinic and treated with schedule morphine tablets for over 6 years but due to regulation changes unable to obtained continued treatment. Heavenly was seeing local physician whom intermittently prescribed medications for pain Tylenol with Codeine and patient has been evaluated in the ER with intermittent prescriptions of Percocet for severe break through pain. Heavenly is very forth coming with pain mediation, clinic and use history which is confirmed using [place] [employer]. - Related Data Allergies Allergy/AdvReac Type Severity Reaction Status Date / Time Penicillins Allergy Intermediate Mouth Sores Verified 03/02/21 14:48 Home Meds: Home Meds ALPRAZolam [Xanax] 0.5 mg PO BEDTIME PRN 10/08/15 [History] Escitalopram [Lexapro] 20 mg PO QAM 10/08/15 [History] traZODone HCl [Trazodone HCl] 100 mg PO BEDTIME PRN 10/08/15 [History] cloNIDine [Catapres] 0.1 mg PO ASDIRECTED 11/08/19 [History] *Levothyroxine 100 mcg PO DAILY 04/21/20 [History] Lidocaine 5% [Lidoderm 5%] 1 patch TOP DAILY #10 patch 12/07/20 [Rx] Folic Acid 1 mg PO DAILY 01/21/21 [History] Acetaminophen/oxyCODONE [Percocet 325-5 MG] 1 - 2 each PO Q6H PRN 5 Days #10 tab 03/02/21 [Rx] Metoprolol Tartrate 25 mg PO DAILY 03/02/21 [History] Naproxen [Naprosyn] 500 mg PO Q12HR 03/02/21 [History] Past Medical History HEENT History: Reports: Cataract Cardiovascular History: Reports: Arrhythmia, Hypertension, Other (See Below) Other Cardiovascular History: SVT Respiratory History: Reports: COPD, Pneumonia, Recurrent, SOB, Other (See Below) Other Respiratory History: Usually uses O2 at night 2LPM. 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 failed injection Neurological History: Reports: Migraines Psychiatric History: Reports: Anxiety, Depression Endocrine/Metabolic History: Reports: Hypothyroidism Other Endocrine/Metabolic History: 12/13/2018: reports 20# weight loss over past 6 wks Hematologic History: Reports: Anemia, B12 Deficiency, Blood Transfusion(s) Immunologic History: Reports: None Oncologic (Cancer) History: Reports: None Dermatologic History: Reports: None - Infectious Disease History Infectious Disease History: Reports: Chicken Pox, Measles, Mumps - Past Surgical History Head Surgeries/Procedures: Reports: None HEENT Surgical History: Reports: Cataract Surgery Other HEENT Surgeries/Procedures: wears dentures Cardiovascular Surgical History: Reports: Cardiac Ablation GI Surgical History: Reports: Cholecystectomy, Colonoscopy, EGD Female Surgical History: Reports: Breast Biopsy, Hysterectomy, Salpingo- Oophorectomy Endocrine Surgical History: Reports: Thyroidectomy Neurological Surgical History: Reports: None Musculoskeletal Surgical History: Reports: Other (See Below) Other Musculoskeletal Surgeries/Procedures:: neuroma removed fx patella. R TSA 12/13/2018 due to R shoulder pain/OA. right shoulder scope 11/12/19 Oncologic Surgical History: Reports: Biopsy of Breast Social & Family History - Family History Family Medical History: No Pertinent Family History - Tobacco Use Tobacco Use Status *Q: Current Every Day Tobacco User Years of Tobacco use: 50 Packs/Tins Daily: 0.5 - Caffeine Use Caffeine Use: Reports: Soda Other Caffeine Use: Pepsi Caffeine Use Comment: pepsi ED ROS GENERAL - Review of Systems Review Of Systems: Comprehensive ROS is negative, except as noted in HPI. ED EXAM,LOWER BACK PAIN/INJURY - Physical Exam Exam: See Below Exam Limited By: No Limitations General Appearance: Alert, WD/WN, Moderate Distress, Thin (hunched over posture) Eye Exam: Bilateral Eye: EOMI, Normal Fundi Ears: Hearing Grossly Normal Throat/Mouth: Normal Inspection, Normal Lips Head: Atraumatic Neck: Normal Inspection Respiratory/Chest: No Respiratory Distress Cardiovascular: Normal Peripheral Pulses GI/Abdominal: Non-Tender Extremities: Normal Inspection Neurological: Alert, Normal Mood/Affect, Normal Dorsiflexion. No: Normal Gait (uses cane ) Psychiatric: Depressed Mood (due to pain making her feel depressed and unable to mange pain), Tearful Skin Exam: Warm, Dry, Intact, Normal Color Course - Vital Signs Last Recorded V/S: Last Vital Signs Temp 36.7 C 03/02/21 14:56 Pulse 81 03/02/21 14:56 Resp 16 03/02/21 14:56 BP 154/74 H 03/02/21 14:56 Pulse Ox 98 03/02/21 14:56 - Orders/Labs/Meds Orders: Active Orders 24 hr Category Date Time Status Acetaminophen/oxyCODONE [Percocet 325-5 MG] Med 03/02/21 15:29 Ordered 1 tab PO ONETIME PRN Medication Orders Oxycodone/Acetaminophen (Acetaminophen/Oxycodone 325-5 Mg Tab) 1 tab PO ONETIME PRN PRN Reason: Pain Meds: Medications Generic Name Dose Route Start Last Admin Trade Name Freq PRN Reason Stop Dose Admin Oxycodone/Acetaminophen 1 tab 03/02/21 15:29 Acetaminophen/Oxycodone 325-5 Mg Tab PO ONETIME PRN Pain Discontinued Medications Generic Name Dose Route Start Last Admin Trade Name Freq PRN Reason Stop Dose Admin Morphine Sulfate 4 mg 03/02/21 15:29 Morphine 4 Mg/Ml Syringe IM 03/02/21 15:30 ONETIME ONE - Re-Assessments/Exams Free Text/Narrative Re-Assessment/Exam: 03/02/21 15:11 [place] [employer] N[employer]X SCORES Narcotic 250 Sedative 190 Stimulant 000 OVERDOSE RISK SCORE 470 (Range 000-999) ADDITIONAL RISK INDICATORS ( 2 ) >= 5 opioid or sedative providers in any year in the last 2 years >= 4 opioid or sedative dispensing pharmacies in any 90 day period in the last 2 years Departure - Departure Time of Disposition: 15:37 Disposition: Home, Self-Care 01 Clinical Impression: Chronic back pain Spinal stenosis of lumbar region Qualifiers: Neurogenic claudication status: with neurogenic claudication Qualified Code(s): M48.062 - Spinal stenosis, lumbar region with neurogenic claudication - Discharge Information Prescriptions: Acetaminophen/oxyCODONE [Percocet 325-5 MG] 1 - 2 each PO Q6H PRN 5 Days #10 tab PRN Reason: pain Instructions: Spinal Stenosis, Chronic Pain, Adult, Acute Back Pain, Adult, Decision Aid - Spinal Stenosis, What You Need to Know About Chronic Back Pain, Managing Pain Without Opioids, Chronic Back Pain, Living With Depression Referrals: Azam Rosa Sr, MD [Primary Care Provider] - Forms: ED Department Discharge, ED Return to Work/School Form Additional Instructions: Go TO pain clinic appointment on Tuesday, March 04 as scheduled to discuss pain concerns which are worsening mental health. 1. Due to have a safe ride, morphine 4mg IM given with 1 tablets of Percocet to get on top of pain in the hopes of pain better managed with the following treatments. Purchase OTC Lidocaine patch (Salonpas) and place over point of [place] tenderness for management of chronic pain. 2. Tylenol 500-1000mg every 6-8 hrs for mild to moderate pain. 3. Naproxen 500mg every am and pm for moderate pain and inflammation. 4. Percocet #10 as needed for severe pain may start with 1/2 tablet and up to 2 tablets for severe pain. 5. [place] Prescription Monitoring Program was reviewed today and your reported narcotic use history was verified. 6. Patient denied thoughts of taking too many medications (pain pills) to be unsafe and end her life today. Sepsis Event Note (ED) - Evaluation Sepsis Screening Result: No Definite Risk - Focused Exam Vital Signs: Vital Signs Temp Pulse Resp BP Pulse Ox 03/02/21 14:56 36.7 C 81 16 154/74 H 98 - My Orders Last 24 Hours: My Active Orders 03/02/21 15:29 Acetaminophen/oxyCODONE [Percocet 325-5 MG] 1 tab PO ONETIME PRN - Assessment/Plan Last 24 Hours: My Active Orders 03/02/21 15:29 Acetaminophen/oxyCODONE [Percocet 325-5 MG] 1 tab PO ONETIME PRN
[2021-03-02] MEDS ORDERED: Morphine 4 MG/ML Syringe IM ONE (15:29)
[2021-03-02] MEDS ORDERED: Acetaminophen/oxyCODONE 325-5 MG Tab PO PRN (15:29)
== END 2021-03-02 15:58 | disposition home or self-care (01) ==
LOC: JP.ED 14:31
DX: M48.062 Spinal stenosis, lumbar region with neurogenic claudication (principal); I10 Essential (primary) hypertension; J44.9 Chronic obstructive pulmonary disease, unspecified; E03.9 Hypothyroidism, unspecified; Z79.899 Other long term (current) drug therapy; Z88.0 Allergy status to penicillin
CPT/HCPCS: 96372; 99283; A9270; J2270

== ENCOUNTER 2021-03-18 14:15 | Emergency (ER) | payer MEDICARE, OTHER ==
[2021-03-18 15:13] VITALS: BP 132/64; PULSE 60
[2021-03-18] MEDS ORDERED: Ketorolac 30 MG/ML SDV IM ONE (15:34)
--- NOTE | 2021-03-18 16:05 | EDM.PDOC ---
ED HPI GENERAL MEDICAL PROBLEM - General Chief Complaint: Back Pain or Injury Stated Complaint: BACK ACHE Time Seen by Provider: 03/18/21 15:00 Source of Information: Reports: Patient History Limitations: Reports: No Limitations - History of Present Illness INITIAL COMMENTS - FREE TEXT/NARRATIVE: 75-year-old female here with chronic back pain, acute flare wanting pain relief. She has intermittent numbness and weakness of the lower extremities and has falls on a fairly frequent basis. These are all chronic, she claims she has had a recent MRI that showed spinal stenosis and she needs back surgery. No incontinence, no recent trauma. Onset: Unknown/Unsure Duration: Chronic Location: Reports: Back Associated Symptoms: Reports: Other (Lower extremity weakness and intermittent paresthesias) - Related Data Allergies Allergy/AdvReac Type Severity Reaction Status Date / Time Penicillins Allergy Intermediate Mouth Sores Verified 03/18/21 14:45 Home Meds: Home Meds ALPRAZolam [Xanax] 0.5 mg PO BEDTIME PRN 10/08/15 [History] Escitalopram [Lexapro] 20 mg PO QAM 10/08/15 [History] traZODone HCl [Trazodone HCl] 100 mg PO BEDTIME PRN 10/08/15 [History] cloNIDine [Catapres] 0.1 mg PO ASDIRECTED 11/08/19 [History] *Levothyroxine 100 mcg PO DAILY 04/21/20 [History] Lidocaine 5% [Lidoderm 5%] 1 patch TOP DAILY #10 patch 12/07/20 [Rx] Folic Acid 1 mg PO DAILY 01/21/21 [History] Metoprolol Tartrate 25 mg PO DAILY 03/02/21 [History] Naproxen [Naprosyn] 500 mg PO Q12HR 03/02/21 [History] Past Medical History HEENT History: Reports: Cataract Cardiovascular History: Reports: Arrhythmia, Hypertension, Other (See Below) Other Cardiovascular History: SVT Respiratory History: Reports: COPD, Pneumonia, Recurrent, SOB, Other (See Below) Other Respiratory History: Usually uses O2 at night 2LPM. 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 failed injection Neurological History: Reports: Migraines Psychiatric History: Reports: Anxiety, Depression Endocrine/Metabolic History: Reports: Hypothyroidism Other Endocrine/Metabolic History: 12/13/2018: reports 20# weight loss over past 6 wks Hematologic History: Reports: Anemia, B12 Deficiency, Blood Transfusion(s) Immunologic History: Reports: None Oncologic (Cancer) History: Reports: None Dermatologic History: Reports: None - Infectious Disease History Infectious Disease History: Reports: Chicken Pox, Measles, Mumps - Past Surgical History Head Surgeries/Procedures: Reports: None HEENT Surgical History: Reports: Cataract Surgery Other HEENT Surgeries/Procedures: wears dentures Cardiovascular Surgical History: Reports: Cardiac Ablation Respiratory Surgical History: Reports: None GI Surgical History: Reports: Cholecystectomy, Colonoscopy, EGD Female Surgical History: Reports: Breast Biopsy, Hysterectomy, Salpingo- Oophorectomy Endocrine Surgical History: Reports: Thyroidectomy Neurological Surgical History: Reports: None Musculoskeletal Surgical History: Reports: Other (See Below) Other Musculoskeletal Surgeries/Procedures:: neuroma removed fx patella. R TSA 12/13/2018 due to R shoulder pain/OA. right shoulder scope 11/12/19 Oncologic Surgical History: Reports: Biopsy of Breast Dermatological Surgical History: Reports: None Social & Family History - Family History Family Medical History: No Pertinent Family History - Tobacco Use Tobacco Use Status *Q: Current Every Day Tobacco User Years of Tobacco use: 50 Packs/Tins Daily: 0.5 Used Tobacco, but Quit: No Second Hand Smoke Exposure: No - Caffeine Use Caffeine Use: Reports: Soda Other Caffeine Use: Pepsi Caffeine Use Comment: pepsi - Recreational Drug Use Recreational Drug Use: No ED ROS GENERAL - Review of Systems Review Of Systems: See Below Constitutional: Denies: Fever, Chills Respiratory: Denies: Shortness of Breath Cardiovascular: Denies: Chest Pain GI/Abdominal: Denies: Nausea, Vomiting Skin: Reports: No Symptoms Neurological: Reports: Paresthesia (Intermittent paresthesias especially on the right), Weakness (Weakness of the lower extremities) Psychiatric: Reports: No Symptoms ED EXAM,LOWER BACK PAIN/INJURY - Physical Exam Exam: See Below Exam Limited By: No Limitations General Appearance: Alert, No Apparent Distress (Patient really does not look too uncomfortable at this time) Head: Atraumatic Neck: Supple, Non-Tender Respiratory/Chest: No Respiratory Distress, Lungs Clear Cardiovascular: Regular Rate, Rhythm Back Exam: Other (Back exam does reveal some tenderness to palpation in the paraspinous muscles in the upper left lumbar and lower thoracic spine. No significant percussion tenderness.) Extremities: Other (Able to ambulate with a cane, strength is symmetric and reflexes are symmetric) Neurological: Alert, Normal Mood/Affect, Oriented x 3 Psychiatric: Normal Affect, Normal Mood Skin Exam: Warm, Dry Course - Vital Signs Last Recorded V/S: Last Vital Signs Temp 98 F 03/18/21 14:48 Pulse 60 03/18/21 15:12 Resp 18 03/18/21 14:48 BP 132/64 03/18/21 15:12 Pulse Ox 99 03/18/21 15:12 - Orders/Labs/Meds Meds: Medications Discontinued Medications Generic Name Dose Route Start Last Admin Trade Name Vitaly PRN Reason Stop Dose Admin Ketorolac Tromethamine 30 mg 03/18/21 15:34 03/18/21 15:39 Ketorolac 30 Mg/Ml Sdv IM 03/18/21 15:35 30 mg ONETIME ONE Administration - Re-Assessments/Exams Free Text/Narrative Re-Assessment/Exam: 03/19/21 12:14 Discussed her case with her primary provider Azam Rosa, she was given 30 mg of IM Toradol which was beneficial, and 15 Percocet use for extra pain control over the next few weeks. I reviewed her past images, it has been almost a year since she has had an MRI of her back so this likely will need to be repeated before a back surgeon will consult with her. She needs to discuss this with Dr. Rosa. Departure - Departure Time of Disposition: 16:11 Disposition: Home, Self-Care 01 Clinical Impression: Acute exacerbation of chronic low back pain - Discharge Information Instructions: Chronic Back Pain, [id number] Referrals: Azam Rosa Sr, MD [Primary Care Provider] - Forms: ED Department Discharge Care Plan Goals: Continue any current medications adding the Percocet as prescribed if needed for extra pain control. It is important that you check with Dr. Rosa in the next 1 to 2 weeks to come up with a pain plan or any further evaluation needed prior to consultation with the back surgeon. Sepsis Event Note (ED) - Evaluation Sepsis Screening Result: No Definite Risk
== END 2021-03-18 16:10 | disposition home or self-care (01) ==
LOC: JP.ED 14:15
DX: M54.5 Low back pain (principal); G89.29 Other chronic pain; I10 Essential (primary) hypertension; J44.9 Chronic obstructive pulmonary disease, unspecified; F17.210 Nicotine dependence, cigarettes, uncomplicated; E03.9 Hypothyroidism, unspecified; Z88.0 Allergy status to penicillin; Z79.899 Other long term (current) drug therapy; Z90.49 Acquired absence of other specified parts of digestive tract; Z90.710 Acquired absence of both cervix and uterus
CPT/HCPCS: 96372; 99283; J1885

== ENCOUNTER 2021-05-26 11:20 | Emergency (ER) | payer MEDICARE, OTHER ==
[2021-05-26 11:53] VITALS: BP 130/71; PULSE 70
[2021-05-26] MEDS ORDERED: Ketorolac 30 MG/ML SDV IM ONE (12:26)
--- NOTE | 2021-05-26 12:49 | EDM.PDOC ---
ED HPI GENERAL MEDICAL PROBLEM - General Chief Complaint: Upper Extremity Injury/Pain Stated Complaint: L SHOULDER BLADE PAIN Time Seen by Provider: 05/26/21 12:10 Source of Information: Reports: Patient History Limitations: Reports: No Limitations - History of Present Illness INITIAL COMMENTS - FREE TEXT/NARRATIVE: 76-year-old chronic pain patient, has had an increase in pain around her left shoulder blade since last night. Feels like her pain is worse with pressure or trying to move her left shoulder. No shortness of breath, no trauma, no recent falls. Onset: Unknown/Unsure (Woke with pain this morning) Location: Reports: Back (Left posterior shoulder) Associated Symptoms: Reports: Other (Also has chronic pain of the right shoulder and back) - Related Data Allergies Allergy/AdvReac Type Severity Reaction Status Date / Time Penicillins Allergy Intermediate Mouth Sores Verified 05/26/21 12:13 Home Meds: Home Meds ALPRAZolam [Xanax] 0.5 mg PO BEDTIME PRN 10/08/15 [History] Escitalopram [Lexapro] 20 mg PO QAM 10/08/15 [History] traZODone HCl [Trazodone HCl] 150 mg PO BEDTIME 10/08/15 [History] cloNIDine [Catapres] 0.1 mg PO ASDIRECTED 11/08/19 [History] *Levothyroxine 100 mcg PO DAILY 04/21/20 [History] Lidocaine 5% [Lidoderm 5%] 1 patch TOP DAILY #10 patch 12/07/20 [Rx] Folic Acid 1 mg PO DAILY 01/21/21 [History] Metoprolol Tartrate 25 mg PO DAILY 03/02/21 [History] Naproxen [Naprosyn] 500 mg PO Q12HR 03/02/21 [History] Past Medical History HEENT History: Reports: Cataract Cardiovascular History: Reports: Arrhythmia, Hypertension, Other (See Below) Other Cardiovascular History: SVT Respiratory History: Reports: COPD, Pneumonia, Recurrent, SOB, Other (See Below) Other Respiratory History: Usually uses O2 at night 2LPM. 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 failed injection Neurological History: Reports: Migraines Psychiatric History: Reports: Anxiety, Depression Endocrine/Metabolic History: Reports: Hypothyroidism Other Endocrine/Metabolic History: 12/13/2018: reports 20# weight loss over past 6 wks Hematologic History: Reports: Anemia, B12 Deficiency, Blood Transfusion(s) Immunologic History: Reports: None Oncologic (Cancer) History: Reports: None Dermatologic History: Reports: None - Infectious Disease History Infectious Disease History: Reports: Chicken Pox, Measles, Mumps - Past Surgical History Head Surgeries/Procedures: Reports: None HEENT Surgical History: Reports: Cataract Surgery Other HEENT Surgeries/Procedures: wears dentures Cardiovascular Surgical History: Reports: Cardiac Ablation Respiratory Surgical History: Reports: None GI Surgical History: Reports: Cholecystectomy, Colonoscopy, EGD Female Surgical History: Reports: Breast Biopsy, Hysterectomy, Salpingo- Oophorectomy Endocrine Surgical History: Reports: Thyroidectomy Neurological Surgical History: Reports: None Musculoskeletal Surgical History: Reports: Other (See Below) Other Musculoskeletal Surgeries/Procedures:: neuroma removed fx patella. R TSA 12/13/2018 due to R shoulder pain/OA. right shoulder scope 11/12/19 Oncologic Surgical History: Reports: Biopsy of Breast Dermatological Surgical History: Reports: None Social & Family History - Family History Family Medical History: No Pertinent Family History - Tobacco Use Tobacco Use Status *Q: Current Every Day Tobacco User Years of Tobacco use: 50 Packs/Tins Daily: 0.5 Used Tobacco, but Quit: No Second Hand Smoke Exposure: No - Caffeine Use Caffeine Use: Reports: Soda Other Caffeine Use: Pepsi Caffeine Use Comment: pepsi - Recreational Drug Use Recreational Drug Use: No Review of Systems - Review of Systems Review Of Systems: See Below Constitutional: Denies: Fever Respiratory: Denies: Shortness of Breath Cardiovascular: Denies: Chest Pain GI/Abdominal: Denies: Abdominal Pain, Nausea, Vomiting Musculoskeletal: Reports: Shoulder Pain, Back Pain, Muscle Pain Skin: Reports: No Symptoms Neurological: Reports: No Symptoms. Denies: Headache ED EXAM, GENERAL - Physical Exam Exam: See Below Exam Limited By: No Limitations General Appearance: Alert, No Apparent Distress Head: Atraumatic Neck: Supple, Non-Tender Respiratory/Chest: Lungs Clear Cardiovascular: Regular Rate, Rhythm Extremities: Other (Patient is very localized tenderness to palpation of the rhomboids on the left side, causing reproduction of the pain) Neurological: Alert, Oriented Course - Vital Signs Last Recorded V/S: Last Vital Signs Temp 97.9 F 05/26/21 12:16 Pulse 70 05/26/21 12:16 Resp 15 05/26/21 12:16 BP 130/71 05/26/21 12:16 Pulse Ox 98 05/26/21 12:16 - Orders/Labs/Meds Meds: Medications Discontinued Medications Generic Name Dose Route Start Last Admin Trade Name Vitaly PRN Reason Stop Dose Admin Ketorolac Tromethamine 30 mg 05/26/21 12:26 05/26/21 12:59 Ketorolac 30 Mg/Ml Sdv IM 05/26/21 12:27 30 mg ONETIME ONE Administration - Re-Assessments/Exams Free Text/Narrative Re-Assessment/Exam: 05/26/21 13:22 Patient was given 30 mg of IM Toradol which she did get some benefit after 1/2- hour. She was discharged with 6 doses of Percocet to use 1 every 6 hours for the next couple of days and encouraged to take a regular dose of Aleve. She can recheck with Dr. Rosa in 3 days if not improving. Departure - Departure Time of Disposition: 13:09 Disposition: Home, Self-Care 01 Clinical Impression: Rhomboid muscle strain Qualifiers: Encounter type: initial encounter Qualified Code(s): S29.012A - Strain of muscle and tendon of back wall of thorax, initial encounter - Discharge Information Instructions: Muscle Strain, [id number] Referrals: Azam Rosa Sr, MD [Primary Care Provider] - Forms: ED Department Discharge Care Plan Goals: Try a regular dose of Aleve for the next couple of days and add stronger pain medication as directed if needed. Call Dr. Rosa in 3 or 4 days if not improving satisfactorily. Increase activity as tolerated. Sepsis Event Note (ED) - Focused Exam Vital Signs: Vital Signs Temp Pulse Resp BP Pulse Ox 05/26/21 12:16 97.9 F 70 15 130/71 98 05/26/21 11:51 97.9 F 70 15 130/71 98
== END 2021-05-26 13:09 | disposition home or self-care (01) ==
LOC: JP.ED 11:20
DX: S29.012A Strain of muscle and tendon of back wall of thorax, initial encounter (principal); I10 Essential (primary) hypertension; Z88.0 Allergy status to penicillin; K21.9 Gastro-esophageal reflux disease without esophagitis; Z79.899 Other long term (current) drug therapy; Z72.0 Tobacco use; X50.0XXA Overexertion from strenuous movement or load, initial encounter
CPT/HCPCS: 96372; 99283; J1885

== ENCOUNTER 2021-06-12 15:53 | Emergency (ER) | payer MEDICARE, OTHER ==
[2021-06-12 16:12] VITALS: BP 133/49; PULSE 62
[2021-06-12] MEDS ORDERED: Ketorolac 30 MG/ML SDV IM ONE (17:03)
--- NOTE | 2021-06-12 17:10 | EDM.PDOC ---
ED HPI GENERAL MEDICAL PROBLEM - General Chief Complaint: Back Pain or Injury Stated Complaint: BACK PAIN WON'T GO AWAY Time Seen by Provider: 06/12/21 16:50 Source of Information: Reports: Patient, Old Records, RN History Limitations: Reports: No Limitations - History of Present Illness INITIAL COMMENTS - FREE TEXT/NARRATIVE: 76 yo female presents with back pain. She has ongoing back pain that waxes and wanes, comes and goes for yrs. She goes to Dr. Rosa who is closed now for the weekend. She is scheduled to see someone for surgery on a bulging disc in her back soon she states. She was here about 2 weeks ago and got decent short term relief with Toradol 30 mg IM followed by an Rx for #10 Percocet tabs. Her pain today is much like she has experienced in the past. Onset: Unknown/Unsure Duration: Chronic, Intermittent, Waxing/Waning Location: Reports: Back Quality: Reports: Ache Severity: Moderate Improves with: Reports: Medication Worsens with: Reports: Other (unsure) Context: Reports: Other (See HPI) Associated Symptoms: Reports: No Other Symptoms Treatments SANITATION LEAD: Reports: Other (see below) (none) - Related Data Allergies Allergy/AdvReac Type Severity Reaction Status Date / Time Penicillins Allergy Intermediate Mouth Sores Verified 06/12/21 16:08 Home Meds: Home Meds ALPRAZolam [Xanax] 0.5 mg PO BEDTIME PRN 10/08/15 [History] Escitalopram [Lexapro] 20 mg PO QAM 10/08/15 [History] traZODone HCl [Trazodone HCl] 150 mg PO BEDTIME 10/08/15 [History] cloNIDine [Catapres] 0.1 mg PO ASDIRECTED 11/08/19 [History] *Levothyroxine 100 mcg PO DAILY 04/21/20 [History] Lidocaine 5% [Lidoderm 5%] 1 patch TOP DAILY #10 patch 12/07/20 [Rx] Folic Acid 1 mg PO DAILY 01/21/21 [History] Metoprolol Tartrate 25 mg PO DAILY 03/02/21 [History] Naproxen [Naprosyn] 500 mg PO Q12HR 03/02/21 [History] Acetaminophen/oxyCODONE [Percocet 325-5 MG] 1 each PO Q4H PRN #10 tab 06/12/21 [Rx] Past Medical History HEENT History: Reports: Cataract Cardiovascular History: Reports: Arrhythmia, Hypertension, Other (See Below) Other Cardiovascular History: SVT Respiratory History: Reports: COPD, Pneumonia, Recurrent, SOB, Other (See Below) Other Respiratory History: Usually uses O2 at night 2LPM. 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 failed injection Neurological History: Reports: Migraines Psychiatric History: Reports: Anxiety, Depression Endocrine/Metabolic History: Reports: Hypothyroidism Other Endocrine/Metabolic History: 12/13/2018: reports 20# weight loss over past 6 wks Hematologic History: Reports: Anemia, B12 Deficiency, Blood Transfusion(s) Immunologic History: Reports: None Oncologic (Cancer) History: Reports: None Dermatologic History: Reports: None - Infectious Disease History Infectious Disease History: Reports: Chicken Pox, Measles, Mumps - Past Surgical History Head Surgeries/Procedures: Reports: None HEENT Surgical History: Reports: Cataract Surgery Other HEENT Surgeries/Procedures: wears dentures Cardiovascular Surgical History: Reports: Cardiac Ablation Respiratory Surgical History: Reports: None GI Surgical History: Reports: Cholecystectomy, Colonoscopy, EGD Female Surgical History: Reports: Breast Biopsy, Hysterectomy, Salpingo- Oophorectomy Endocrine Surgical History: Reports: Thyroidectomy Neurological Surgical History: Reports: None Musculoskeletal Surgical History: Reports: Other (See Below) Other Musculoskeletal Surgeries/Procedures:: neuroma removed fx patella. R TSA 12/13/2018 due to R shoulder pain/OA. right shoulder scope 11/12/19 Oncologic Surgical History: Reports: Biopsy of Breast Dermatological Surgical History: Reports: None Social & Family History - Family History Family Medical History: No Pertinent Family History - Tobacco Use Tobacco Use Status *Q: Current Every Day Tobacco User Years of Tobacco use: 50 Packs/Tins Daily: 0.5 - Caffeine Use Caffeine Use: Reports: Soda Other Caffeine Use: Pepsi Caffeine Use Comment: pepsi - Recreational Drug Use Recreational Drug Use: No ED ROS GENERAL - Review of Systems Review Of Systems: See Below Constitutional: Reports: No Symptoms HEENT: Reports: No Symptoms Respiratory: Reports: No Symptoms Cardiovascular: Reports: No Symptoms GI/Abdominal: Reports: No Symptoms Musculoskeletal: Reports: Back Pain Skin: Reports: No Symptoms Neurological: Reports: Numbness (R arm from the bulging disc, not new) ED EXAM,LOWER BACK PAIN/INJURY - Physical Exam Exam: See Below Exam Limited By: No Limitations General Appearance: Alert, WD/WN, No Apparent Distress, Thin Eye Exam: Bilateral Eye: Normal Inspection Ears: Normal External Exam, Normal Canal, Hearing Grossly Normal Nose: Normal Inspection, No Blood Throat/Mouth: Normal Inspection, Normal Lips, Normal Oropharynx, Normal Voice, No Airway Compromise Head: Atraumatic, Normocephalic Neck: Normal Inspection Respiratory/Chest: No Respiratory Distress, Lungs Clear, Normal Breath Sounds, N o Accessory Muscle Use Cardiovascular: Regular Rate, Rhythm, No Edema GI/Abdominal: Soft, Non-Tender Back Exam: Normal Inspection. No: CVA Tenderness (R), CVA Tenderness (L) Extremities: Normal Inspection Neurological: Alert, Normal Mood/Affect, CN II-XII Intact, Oriented x 3. No: No Motor/Sensory Deficits Psychiatric: Normal Affect, Normal Mood Skin Exam: Warm, Dry, Intact, Normal Color, No Rash Course - Vital Signs Last Recorded V/S: Last Vital Signs Temp 36.2 C 06/12/21 16:09 Pulse 62 06/12/21 16:09 Resp 16 06/12/21 16:09 BP 133/49 L 06/12/21 16:09 Pulse Ox 96 06/12/21 16:09 - Orders/Labs/Meds Meds: Medications Discontinued Medications Generic Name Dose Route Start Last Admin Trade Name Rolandq PRN Reason Stop Dose Admin Ketorolac Tromethamine 30 mg 06/12/21 17:03 Ketorolac 30 Mg/Ml Sdv IM 06/12/21 17:04 ONETIME ONE Departure - Departure Time of Disposition: 17:25 Disposition: Home, Self-Care 01 Condition: Fair Clinical Impression: Chronic back pain Qualifiers: Back pain location: thoracic back pain Back pain laterality: right Qualified Code(s): M54.6 - Pain in thoracic spine; G89.29 - Other chronic pain - Discharge Information *PRESCRIPTION DRUG MONITORING PROGRAM REVIEWED*: Yes *COPY OF PRESCRIPTION DRUG MONITORING REPORT IN PATIENT SOFIA: Yes Prescriptions: Acetaminophen/oxyCODONE [Percocet 325-5 MG] 1 each PO Q4H PRN #10 tab PRN Reason: Pain Referrals: Azam Rosa Sr, MD [Primary Care Provider] - Additional Instructions: Use the Percocet as needed. See your doctor on Tuesday regarding your back. Sepsis Event Note (ED) - Evaluation Sepsis Screening Result: No Definite Risk - Focused Exam Vital Signs: Vital Signs Temp Pulse Resp BP Pulse Ox 06/12/21 16:09 36.2 C 62 16 133/49 L 96
== END 2021-06-12 17:35 | disposition home or self-care (01) ==
LOC: JP.ED 15:53
DX: G89.29 Other chronic pain (principal); M54.6 Pain in thoracic spine; J44.9 Chronic obstructive pulmonary disease, unspecified; I10 Essential (primary) hypertension; E03.9 Hypothyroidism, unspecified; Z79.899 Other long term (current) drug therapy; Z72.0 Tobacco use; Z88.0 Allergy status to penicillin
CPT/HCPCS: 96372; 99283; J1885

== ENCOUNTER 2021-08-24 20:10 | Emergency (ER) | payer MEDICARE, OTHER ==
[2021-08-24 20:48] VITALS: BP 189/89; PULSE 96
[2021-08-24] MEDS ORDERED: Acetaminophen/oxyCODONE 325-5 MG Tab PO PRN (21:36)
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
--- NOTE | 2021-08-24 23:01 | CRLCR ---
For Patients: As a result of the Cures Act, medical imaging exams and procedure reports are released immediately into your electronic medical record. You may view this report before your referring provider. If you have questions, please contact your health care provider. INDICATION: Fall, left rib pain, anterior distal rib pain TECHNIQUE: Chest radiograph, Rib radiographs 3 views left COMPARISON: 10/03/2020 FINDINGS: Mediastinum: The mediastinum is normal in appearance. The heart silhouette is normal in size and morphology. Lung: Both lungs are unremarkable in appearance. No sign of pleural effusion seen. No pneumothorax is identified. Ribs and bones: Mild cortical angulation is seen in the anterior left 3rd, 4th and 5th ribs. Right shoulder arthroplasty is partially visualized. Severe diffuse osteopenia is noted. Dextroscoliosis of the thoracolumbar junction is present. Soft tissue: Unremarkable. IMPRESSION: 1. Mild cortical angulation is seen in the anterior left 3rd, 4th and 5th ribs. These may represent the result of remote injuries. Correlation with physical exam for focal tenderness in this region is recommended to exclude an acute fracture. Dictated by Mainor Castano MD @ 08/24/2021 11:00:38 PM Dictated by: Mainor Castano MD @ 08/24/2021 23:00:41 (Electronically Signed)
== END 2021-08-24 23:43 | disposition home or self-care (01) ==
LOC: JP.ED 20:10
DX: S20.212A Contusion of left front wall of thorax, initial encounter (principal); J44.9 Chronic obstructive pulmonary disease, unspecified; E03.9 Hypothyroidism, unspecified; I10 Essential (primary) hypertension; Z88.0 Allergy status to penicillin; Z79.899 Other long term (current) drug therapy; Z72.0 Tobacco use; W18.39XA Other fall on same level, initial encounter; Y92.009 Unspecified place in unspecified non-institutional (private) residence as the place of occurrence of the external cause
CPT/HCPCS: 71101; 99283; A9270

== ENCOUNTER 2021-09-15 22:12 | Emergency (ER) | payer MEDICARE, OTHER ==
[2021-09-15 22:27] VITALS: BP 185/99; PULSE 71
--- NOTE | 2021-09-15 22:44 | EDM.PDOC ---
ED HPI GENERAL MEDICAL PROBLEM - General Chief Complaint: Back Pain or Injury Stated Complaint: BACK PROBLEM Time Seen by Provider: 09/15/21 22:43 Source of Information: Reports: Patient History Limitations: Reports: No Limitations - History of Present Illness INITIAL COMMENTS - FREE TEXT/NARRATIVE: pt arrived with acute pain in her lower thoracic anf upper lumbar. She did fall mid dec and she has had increased pain since that time. She did bruise her ribs at that time. Onset: Other (pt has been having problems for about 3 weeks. ) Duration: Hour(s): Location: Reports: Back Associated Symptoms: Reports: No Other Symptoms Back Pain Score (Numeric/FACES): 10 - Related Data Allergies Allergy/AdvReac Type Severity Reaction Status Date / Time Penicillins Allergy Intermediate Mouth Sores Verified 09/15/21 22:37 Home Meds: Home Meds ALPRAZolam [Xanax] 0.5 mg PO BEDTIME PRN 10/08/15 [History] Escitalopram [Lexapro] 20 mg PO QAM 10/08/15 [History] traZODone HCl [Trazodone HCl] 150 mg PO BEDTIME 10/08/15 [History] cloNIDine [Catapres] 0.1 mg PO ASDIRECTED 11/08/19 [History] Levothyroxine [Synthroid] 100 mcg PO DAILY 04/21/20 [History] Lidocaine 5% [Lidoderm 5%] 1 patch TOP DAILY #10 patch 12/07/20 [Rx] Folic Acid 1 mg PO DAILY 01/21/21 [History] Metoprolol Tartrate 25 mg PO DAILY 03/02/21 [History] Naproxen [Naprosyn] 500 mg PO Q12HR 03/02/21 [History] Acetaminophen/oxyCODONE [Percocet 325-5 MG] 1 each PO Q4H PRN #10 tab 06/12/21 [Rx] Past Medical History HEENT History: Reports: Cataract Cardiovascular History: Reports: Arrhythmia, Hypertension, Other (See Below) Other Cardiovascular History: SVT Respiratory History: Reports: COPD, Pneumonia, Recurrent, SOB, Other (See Below) Other Respiratory History: Usually uses O2 at night 2LPM. 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 failed injection Neurological History: Reports: Migraines Psychiatric History: Reports: Anxiety, Depression Endocrine/Metabolic History: Reports: Hypothyroidism Other Endocrine/Metabolic History: 12/13/2018: reports 20# weight loss over past 6 wks Hematologic History: Reports: Anemia, B12 Deficiency, Blood Transfusion(s) Immunologic History: Reports: None Oncologic (Cancer) History: Reports: None Dermatologic History: Reports: None - Infectious Disease History Infectious Disease History: Reports: Chicken Pox, Measles, Mumps - Past Surgical History Head Surgeries/Procedures: Reports: None HEENT Surgical History: Reports: Cataract Surgery Other HEENT Surgeries/Procedures: wears dentures Cardiovascular Surgical History: Reports: Cardiac Ablation Respiratory Surgical History: Reports: None GI Surgical History: Reports: Cholecystectomy, Colonoscopy, EGD Female Surgical History: Reports: Breast Biopsy, Hysterectomy, Salpingo- Oophorectomy Endocrine Surgical History: Reports: Thyroidectomy Neurological Surgical History: Reports: None Musculoskeletal Surgical History: Reports: Other (See Below) Other Musculoskeletal Surgeries/Procedures:: neuroma removed fx patella. R TSA 12/13/2018 due to R shoulder pain/OA. right shoulder scope 11/12/19 Oncologic Surgical History: Reports: Biopsy of Breast Dermatological Surgical History: Reports: None Social & Family History - Family History Family Medical History: No Pertinent Family History - Caffeine Use Caffeine Use: Reports: Coffee Other Caffeine Use: Pepsi Caffeine Use Comment: pepsi - Living Situation & Occupation Living situation: Reports: , Alone (lives alone at [facility].- has 1 Granddaughter and 4 Great-grandchildren who live in [place], [place].) Occupation: Retired ED ROS GENERAL - Review of Systems Review Of Systems: See Below Constitutional: Reports: No Symptoms HEENT: Reports: No Symptoms Respiratory: Reports: No Symptoms Cardiovascular: Reports: No Symptoms Endocrine: Reports: No Symptoms GI/Abdominal: Reports: No Symptoms : Reports: No Symptoms Musculoskeletal: Reports: Other (pain in the lower t spine and upper lumbar. ) Skin: Reports: No Symptoms ED EXAM,LOWER BACK PAIN/INJURY - Physical Exam Exam: See Below Text/Narrative:: pt arrived with pain in her lower t spine and upper lumbar. She did fall about 2-3 weeks ago. She has been uncomfortable since that time. Exam Limited By: No Limitations General Appearance: Alert, Anxious, Moderate Distress Ears: Normal TMs Nose: Normal Inspection Throat/Mouth: Normal Inspection Head: Atraumatic Neck: Normal Inspection Respiratory/Chest: No Respiratory Distress Cardiovascular: Regular Rate, Rhythm GI/Abdominal: Soft, Non-Tender Rectal (Female) Exam: Deferred Back Exam: Other (pt is tender over the spine lower t spine and lumbar. ) Extremities: Normal Inspection Course - Vital Signs Last Recorded V/S: Last Vital Signs Temp 36.2 C 09/15/21 22:35 Pulse 71 09/15/21 22:35 Resp 16 09/15/21 22:35 BP 185/99 H 09/15/21 22:35 Pulse Ox 96 09/15/21 22:35 - Orders/Labs/Meds Meds: Medications Discontinued Medications Generic Name Dose Route Start Last Admin Trade Name Freq PRN Reason Stop Dose Admin Ketorolac Tromethamine 30 mg 09/15/21 23:00 09/15/21 23:10 Ketorolac 30 Mg/Ml Sdv IM 09/15/21 23:01 30 mg ONETIME ONE Administration Oxycodone/Acetaminophen 1 tab 09/15/21 23:00 09/15/21 23:09 Acetaminophen/Oxycodone 325-5 Mg Tab PO 09/15/21 23:01 1 tab ONETIME ONE Administration - Re-Assessments/Exams Free Text/Narrative Re-Assessment/Exam: 09/16/21 00:17 pt was given torodol 30mg im , she also was given percocet 5/325. She was still uncomfortable after that. She was then given dilaudid .5 im. Departure - Departure Time of Disposition: 00:18 Disposition: Home, Self-Care 01 Condition: Fair Clinical Impression: Lumbar disc disease - Discharge Information Referrals: Azam Rosa Sr, MD [Primary Care Provider] - Forms: ED Department Discharge Care Plan Goals: moist warm packs to back, percocet 5/325 q8h prn for pain # 15, appt with Dr Rosa regarding some therapy. Sepsis Event Note (ED) - Evaluation Sepsis Screening Result: No Definite Risk - Focused Exam Vital Signs: Vital Signs Temp Pulse Resp BP Pulse Ox 09/15/21 22:35 36.2 C 71 16 185/99 H 96 09/15/21 22:25 36.2 C 71 16 185/99 H 96
[2021-09-15] MEDS ORDERED: Acetaminophen/oxyCODONE 325-5 MG Tab PO ONE (23:00)
[2021-09-15] MEDS ORDERED: Ketorolac 30 MG/ML SDV IM ONE (23:00)
--- NOTE | 2021-09-15 23:58 | CRLCR ---
For Patients: As a result of the Century Cures Act, medical imaging exams and procedure reports are released immediately into your electronic medical record. You may view this report before your referring provider. If you have questions, please contact your health care provider. INDICATION: Back pain TECHNIQUE: Five views of the lumbar spine COMPARISON: Lumbar spine radiographs 02/17/2017 FINDINGS: There is osseous demineralization, consistent with osteopenia. Mild superior endplate height loss is noted L2, at similar to prior. Multilevel degenerative changes are present, most pronounced at L1-2. There is mild S-shaped thoracolumbar curvature. There is no appreciable spondylolisthesis. Atherosclerotic aortic calcification is noted. IMPRESSION: Osteopenia. Stable chronic mild vertebral compression deformity at L2. No acute abnormality demonstrated. Dictated by Lara Willoughby MD @ 09/15/2021 11:57:00 PM (Electronically Signed)
== END 2021-09-16 00:37 | disposition home or self-care (01) ==
LOC: JP.ED 22:12
DX: M51.86 Other intervertebral disc disorders, lumbar region (principal); J44.9 Chronic obstructive pulmonary disease, unspecified; E03.9 Hypothyroidism, unspecified; Z88.0 Allergy status to penicillin
CPT/HCPCS: 72110; 96372; 99283; A9270; J1885

== ENCOUNTER 2021-09-23 21:50 | Emergency (ER) | payer MEDICARE, OTHER ==
[2021-09-23 22:12] VITALS: BP 114/56; PULSE 60
[2021-09-23] MEDS ORDERED: Ketorolac 30 MG/ML SDV IM ONE (22:32)
[2021-09-23] MEDS ORDERED: HYDROmorphone 0.5 MG/0.5 ML Syringe IM ONE (22:32)
== END 2021-09-23 23:26 | disposition home or self-care (01) ==
LOC: JP.ED 21:50
DX: M48.00 Spinal stenosis, site unspecified (principal); M54.6 Pain in thoracic spine; G89.29 Other chronic pain; I10 Essential (primary) hypertension; J44.9 Chronic obstructive pulmonary disease, unspecified; E03.9 Hypothyroidism, unspecified; F17.210 Nicotine dependence, cigarettes, uncomplicated; Z79.899 Other long term (current) drug therapy
CPT/HCPCS: 96372; 99283; J1170; J1885

== ENCOUNTER 2021-11-24 17:05 | Emergency (ER) | payer MEDICARE, OTHER ==
[2021-11-24 17:21] VITALS: BP 186/65; PULSE 70
[2021-11-24] MEDS ORDERED: Ketorolac 30 MG/ML SDV IM ONE (18:05)
[2021-11-24] MEDS ORDERED: HYDROmorphone 0.5 MG/0.5 ML Syringe IM ONE (18:05)
== END 2021-11-24 19:38 | disposition home or self-care (01) ==
LOC: JP.ED 17:05
DX: G89.29 Other chronic pain (principal); M54.6 Pain in thoracic spine; J44.9 Chronic obstructive pulmonary disease, unspecified; K21.9 Gastro-esophageal reflux disease without esophagitis; E03.9 Hypothyroidism, unspecified; M19.90 Unspecified osteoarthritis, unspecified site; Z88.0 Allergy status to penicillin; Z79.899 Other long term (current) drug therapy; Z72.0 Tobacco use
CPT/HCPCS: 96372; 99282; 99283; J1170; J1885

== ENCOUNTER 2021-12-07 20:08 | Emergency (ER) | payer MEDICARE, OTHER ==
[2021-12-07] MEDS ORDERED: Ketorolac 30 MG/ML SDV IM ONE (20:45)
[2021-12-07] MEDS ORDERED: HYDROmorphone 0.5 MG/0.5 ML Syringe IM ONE (20:45)
[2021-12-07] MEDS ORDERED: Cyclobenzaprine 10 MG Tab PO ONE (21:14)
[2021-12-07] MEDS ORDERED: Acetaminophen/oxyCODONE 325-5 MG Tab PO ONE (21:15)
[2021-12-07] MEDS ORDERED: cloNIDine 0.1 MG Tab PO ONE (21:40)
[2021-12-07 23:09] VITALS: BP 153/58; PULSE 57
== END 2021-12-07 23:09 | disposition home or self-care (01) ==
LOC: JP.ED 20:08
DX: M54.6 Pain in thoracic spine (principal); I10 Essential (primary) hypertension; J44.9 Chronic obstructive pulmonary disease, unspecified; K21.9 Gastro-esophageal reflux disease without esophagitis; F17.210 Nicotine dependence, cigarettes, uncomplicated; Z88.0 Allergy status to penicillin; Z79.899 Other long term (current) drug therapy
CPT/HCPCS: 96372; 99283; A9270-GY; J1170; J1885

== ENCOUNTER 2022-01-03 17:04 | Emergency (ER) | payer MEDICARE, OTHER ==
[2022-01-03 17:27] VITALS: BP 149/57; PULSE 66
[2022-01-03] MEDS ORDERED: Ketorolac 30 MG/ML SDV IM ONE (18:40)
[2022-01-03] MEDS ORDERED: Morphine 4 MG/ML Syringe IM ONE (18:45)
== END 2022-01-03 19:29 | disposition home or self-care (01) ==
LOC: JP.ED 17:04
DX: M51.9 Unspecified thoracic, thoracolumbar and lumbosacral intervertebral disc disorder (principal); J44.9 Chronic obstructive pulmonary disease, unspecified; K21.9 Gastro-esophageal reflux disease without esophagitis; E03.9 Hypothyroidism, unspecified; Z88.0 Allergy status to penicillin; Z79.899 Other long term (current) drug therapy; Z72.0 Tobacco use
CPT/HCPCS: 96372; 99282; 99283; J1885; J2270

== ENCOUNTER 2022-02-01 17:07 | Emergency (ER) | payer MEDICARE, OTHER ==
[2022-02-01 17:51] VITALS: BP 223/91; PULSE 87
[2022-02-01 17:51] LABS: TROPONIN I HIGH SENSITIVITY 53.9 pg/mL (<=60.3)
[2022-02-01] MEDS ORDERED: Lisinopril 10 MG Tab PO ONE (17:56)
[2022-02-01] MEDS ORDERED: LORazepam 1 MG Tab PO ONE (17:56)
[2022-02-01] MEDS ORDERED: Potassium Chloride 20 MEQ Tab.ER PO ONE (18:02)
[2022-02-01] MEDS ORDERED: Potassium Chloride 20 MEQ in Premix Bag 1 BAG IV ONE (18:02)
[2022-02-01] MEDS ORDERED: Lidocaine 1% 5 ML VIAL INJECT ONE (18:14)
== END 2022-02-01 20:47 | disposition home or self-care (01) ==
LOC: JP.ED 17:07
DX: E87.6 Hypokalemia (principal); J44.9 Chronic obstructive pulmonary disease, unspecified; I10 Essential (primary) hypertension; E03.9 Hypothyroidism, unspecified; Z90.49 Acquired absence of other specified parts of digestive tract; Z90.710 Acquired absence of both cervix and uterus; Z79.899 Other long term (current) drug therapy; Z88.0 Allergy status to penicillin
CPT/HCPCS: 36415; 71046; 71046-26; 80053; 84484; 85025; 93005; 93010; 96365; 96366; 99282; 99285-25; A9270-GY; J3480

== ENCOUNTER 2022-02-02 18:30 | Emergency (ER) | payer MEDICARE, OTHER ==
[2022-02-02] MEDS ORDERED: HYDROmorphone 0.5 MG/0.5 ML Syringe IM ONE (19:41)
[2022-02-02 21:39] VITALS: BP 182/80; PULSE 99
== END 2022-02-02 20:13 | disposition home or self-care (01) ==
LOC: JP.ED 18:30
DX: G89.29 Other chronic pain (principal); M54.6 Pain in thoracic spine; J44.9 Chronic obstructive pulmonary disease, unspecified; E03.9 Hypothyroidism, unspecified; I10 Essential (primary) hypertension; F17.210 Nicotine dependence, cigarettes, uncomplicated; Z90.49 Acquired absence of other specified parts of digestive tract; Z90.710 Acquired absence of both cervix and uterus; Z79.899 Other long term (current) drug therapy; Z88.0 Allergy status to penicillin
CPT/HCPCS: 96372; 99282; 99283; J1170

== ENCOUNTER 2022-02-20 02:24 | Emergency (ER) | payer MEDICARE, OTHER ==
[2022-02-20 02:56] LABS: ESTIMATED GFR 48 (>60)
[2022-02-20] MEDS ORDERED: Albuterol/Ipratropium 3.0-0.5 MG/3 ML Neb Soln NEB ONE (03:00)
[2022-02-20] MEDS ORDERED: LORazepam 0.5 MG Tab PO ONE (03:20)
[2022-02-20] MEDS ORDERED: Ketorolac 30 MG/ML SDV IM ONE (03:51)
[2022-02-20 04:04] VITALS: BP 170/71; PULSE 67
[2022-02-20] MEDS ORDERED: methylPREDNISolone Sodium Succinate 125 MG/2 ML SDV IM ONE (04:09)
[2022-02-20] MEDS ORDERED: methylPREDNISolone Sodium Succinate 125 MG/2 ML SDV IVPUSH ONE (04:09)
== END 2022-02-20 04:48 | disposition home or self-care (01) ==
LOC: JP.ED 02:24
DX: J44.1 Chronic obstructive pulmonary disease with (acute) exacerbation (principal); R07.89 Other chest pain; E87.6 Hypokalemia; F41.9 Anxiety disorder, unspecified; I10 Essential (primary) hypertension; E03.9 Hypothyroidism, unspecified; Z90.49 Acquired absence of other specified parts of digestive tract; Z90.710 Acquired absence of both cervix and uterus; Z79.899 Other long term (current) drug therapy; Z88.0 Allergy status to penicillin
CPT/HCPCS: 36415; 71046; 80053; 85025; 86140; 94640; 96372; 99285; A9270; J1885; J2930; 99284; J7620

== ENCOUNTER 2022-03-05 19:15 | Emergency (ER) | payer MEDICARE, OTHER | END 2022-03-05 20:30 | disposition left against medical advice (07) | LOC: JP.ED 19:15 | DX: Z53.21 Procedure and treatment not carried out due to patient leaving prior to being seen by health care provider (principal) ==